=== PATIENT | male | born 1945 | race Caucasian/White ===

== ENCOUNTER 2018-05-23 10:26 | Day surgery (SDC) | payer OTHER ==
[2018-05-15 15:21] VITALS: BMI 38.0
--- NOTE | 2018-05-22 09:38 | HP ---
HISTORY AND PHYSICAL DATE OF SERVICE: 05/23/2018. CHIEF COMPLAINT: Left hand pain and numbness. HISTORY OF PRESENT ILLNESS: The patient is a 72-year-old retired right-hand dominant male who presents with progressive left hand pain and numbness for the past year. He notes symptoms with gripping and grasping. He has numbness radiating into all digits. He notes it does wake him at night. He has tried previous bracing. PAST MEDICAL HISTORY: Significant for arthritis, hypertension, diabetes. PAST SURGICAL HISTORY: Significant for bilateral total knee arthroplasty, right rotator cuff surgery, left thumb surgery, multiple eye surgeries, and vasectomy. CURRENT MEDICATIONS: Insulin, metformin, Naprosyn, atorvastatin, glipizide, lisinopril. He has allergies to lovastatin and simvastatin. FAMILY HISTORY: Significant for lung problems. SOCIAL HISTORY: Significant for previous tobacco use, however he quit in 1987. He quit use of alcohol in 2003. REVIEW OF SYSTEMS: Sixteen point review of systems otherwise reviewed and is noncontributory. PHYSICAL EXAMINATION: On examination, the patient is approximately 6 feet tall, 285 pounds, of endomorphic habitus. HEENT exam is nonfocal. Neck is supple. He is nontender about the left shoulder and elbow. On examination of his left wrist, he has a positive Tinel's over the carpal canal. Carpal tunnel compression test is positive. Abductor pollicis brevis strength is 4/5 on the left, 5-/5 on the right. He has moderate thenar atrophy on the left. He has full digital range of motion. EMG report, left upper extremity, shows moderate left carpal tunnel syndrome in addition to left cubital tunnel syndrome. IMPRESSION: 1. Symptomatic left carpal tunnel syndrome. 2. Diabetes. RECOMMENDATIONS: I talked to the patient at length regarding his condition and treatment options. At this point, he is quite symptomatic and opts to proceed with surgery. We will plan to proceed with left carpal tunnel release. We will likely perform that as an outpatient procedure utilizing local anesthetic and IV sedation. Risks and benefits were discussed at length in layman's terms. MMODL / IJN: [id number] /
[~2018-05-23 10:26] MED LIST: DEXAMETHASONE SOD PHOSPHATE 10 MG/ML 1 ML VIAL IV ONE; MIDAZOLAM 2 MG/2 ML VIAL IV PRN; ONDANSETRON 4 MG/2 ML VIAL IVP ONE; fentaNYL (PF) 50 MCG/ML 2 ML AMP IV PRN
[2018-05-23] MEDS: LACTATED RINGERS 1,000 ML IV SCH ×2 (12:08→13:08)
[2018-05-23 12:09] VITALS: TEMP 98.1
[2018-05-23 12:09] LABS: Glucose,Whole Blood 179 mg/dL (75-99)
[2018-05-23] MEDS ORDERED: MIDAZOLAM 2 MG/2 ML VIAL ONE (13:11)
[2018-05-23] MEDS ORDERED: PROPOFOL 10 MG/ML 20 ML VIAL IV ONE (13:11)
[2018-05-23] MEDS ORDERED: ROPIVACAINE 5 MG/ML 30 ML VIAL MISCELLANE ONE (13:19)
[2018-05-23 13:39] VITALS: RESP 16
--- NOTE | 2018-05-23 13:40 | P.OP ---
Date of Procedure: 05/23/18 Preoperative Diagnosis: Symptomatic left carpal tunnel syndrome Postoperative Diagnosis: Same Procedure(s) Performed: Left carpal tunnel release Anesthesia: MAC, regional, local Surgeon: Aurelio Cabrera Estimated Blood Loss (ml): 2 Pathology: none sent Condition: stable Disposition: PACU Indications for Procedure: The patient's a 73-year-old male who presents with progressive left hand pain and numbness secondary to carpal tunnel syndrome despite conservative measures. A discussion of the risks and benefits of operative intervention versus continued conservative measures was made with patient. Proceed with surgery. Operative risks to include infection, neurovascular injury, development of blood clots, possible incomplete resolution of symptoms, possible recurrence of symptoms and need for subsequent procedures was discussed. Informed consent was obtained. Operative Findings: As below Description of Procedure: The patient was brought to the operating room, and after induction of IV sedation and placement of an axillary block the left upper extremity was prepped and draped in a normal fashion. The proposed incision site was outlined with a skin marker in line with the radial aspect fourth ray extending from the volar distal wrist crease distally 2-1/2 cm. 8 mL of half percent Marcaine was injected into the proposed incision site. The tourniquet was inflated to 250 mmHg. Skin incision was then made. The skin and subcu tissues were divided sharply. Electrocautery was used for hemostasis. The superficial palmar fascia was identified and split in line with the skin incision. The transverse carpal ligament was identified and transected under direct visualization distally to the level of the palmar fat pad. I felt this was adequate distal release. A plane above and below the transverse carpal ligament was then bluntly developed with tenotomies. The confluence of the distal forearm fascia and the transverse carpal ligament was then transected under direct visualization with the tines pointed in the ulnar direction. I felt there was adequate proximal release. Neural lysis was not performed. The wound was irrigated with normal saline. The skin was reapproximated with simple 3-0 nylon sutures. A sterile dressing was applied. The tourniquet was deflated less than 15 minutes total tourniquet time. The patient was awoken from sedation and transferred to recovery room in good condition. Blood loss was estimated 2 mL. No complications were incurred. Sponge and needle counts were correct in the case.
[2018-05-23 13:56] VITALS: BP 122/78; PULSE 91
--- NOTE | 2018-05-23 14:29 | P.ONQ ---
Anesthesiology Proc Note - PNB - Peripheral Nerve Block Performed Left Axillary Single Time Out Performed: Yes (9096) Procedure Start Time: 12:56 Procedure Stop Time: 13:00 Indication: Acute Post-Operative Pain, Dx/Pain Location (Left hand pain), Requested by physician Sedation Type: Sedate with meaningful contact maintained Preparation: Sterile Prep Position: Supine Needle Types: On-Q Needle Size: 100mm (4") Needle Gauge: 21 Technique: Ultrasound Injectate: Other (see comment) (15ml 0.5% ropivacaine + 15ml 2% lidocaine with 1 :200,000 epi) Blood Aspirated: No Pain Paresthesia on Injection Noted: No Resistance on Injection: Normal Events: Uneventful and Well Tolerated
== END 2018-05-23 14:10 | disposition home or self-care (01) ==
LOC: OR 10:26
PROVIDERS: ATTEND Orthopaedic Surgery
DX: G56.02 Carpal tunnel syndrome, left upper limb (principal); I10 Essential (primary) hypertension; E78.5 Hyperlipidemia, unspecified; E11.9 Type 2 diabetes mellitus without complications; Z79.4 Long term (current) use of insulin; G47.33 Obstructive sleep apnea (adult) (pediatric); Z99.89 Dependence on other enabling machines and devices; M19.90 Unspecified osteoarthritis, unspecified site; Z87.891 Personal history of nicotine dependence; F43.10 Post-traumatic stress disorder, unspecified; Z79.1 Long term (current) use of non-steroidal anti-inflammatories (NSAID); Z79.891 Long term (current) use of opiate analgesic; Z79.51 Long term (current) use of inhaled steroids; Z79.899 Other long term (current) drug therapy; Z88.8 Allergy status to other drugs, medicaments and biological substances
CPT/HCPCS: 64721; 64417; J2250; J1100; J0690; J2405; J2795; J2704

== ENCOUNTER 2018-07-31 13:22 | Observation (INO) | payer OTHER ==
[2018-07-31] MEDS ORDERED: ASPIRIN 81 MG PO STA (13:32)
--- NOTE | 2018-07-31 13:34 | ED ---
General Adult HPI - General Stated complaint: CHEST PAIN - History of Present Illness Initial comments: Dictation was produced using [employer] dictation software. please excuse any grammatical, word or spelling errors. Chief Complaint: 73-year-old male with multiple comorbidities presents with left anterior chest pain. History of Present Illness: Patient is a 73-year-old male multiple comorbidities. His medical problems include diabetes, post remote stress disorder, hypertension, dyslipidemia. States that over the past 3 days he's been having intermittent left-sided chest pain. He localizes the pain to his left anterior chest. States that today he was exerting himself when he noticed that some of his pain radiated down his left upper extremity. Patient denies any cardiac comorbidities. Denies any cardiac stents. He is never seen a roll bucker before. He's had 2 stress tests that were done about several years ago that were both negative. He denies any associated diaphoresis. Denies any radiation to the neck. The ROS documented in this emergency department record has been reviewed and confirmed by me. Those systems with pertinent positive or negative responses have been documented in the HPI. All other systems are other negative and/or noncontributory. - Related Data Home Medications Medication Instructions Recorded Confirmed Cromolyn Sodium [NasalCrom] 1 spray INHALATION BID 05/03/16 05/15/18 HYDROcodone/APAP 10-325MG [Sunspot 1 tab PO 5XD PRN 05/03/16 05/23/18 10-325] Hydrochlorothiazide [Hydrodiuril] 25 mg PO DAILY 05/03/16 05/15/18 Insulin Glargine [Lantus] 35 unit INJ QAM 05/03/16 05/15/18 Lisinopril 40 mg PO DAILY 05/03/16 05/15/18 Multivitamin [Men's Multi-Vitamin] 1 tab PO DAILY 05/03/16 05/15/18 glipiZIDE [Glucotrol] 10 mg PO BID 05/03/16 05/15/18 metFORMIN HCL [Glucophage] 1,000 mg PO BID 05/03/16 05/15/18 Atorvastatin [Lipitor] 20 mg PO HS 05/15/18 05/15/18 Fluticasone Nasal [place] [Flonase 1 spray EA NOSTRIL DAILY 05/15/18 05/15/18 Nasal [place]] Multivitamins, Thera [Multivitamin 1 tab PO DAILY 05/15/18 05/15/18 (formulary)] Naproxen [Naprosyn] 500 mg PO BID PRN 05/15/18 05/15/18 Pseudoephedrine HCl [Sudafed] 120 mg PO BID PRN 05/15/18 05/23/18 Viagra (Unknown Dose) 1 tab PO DIRECTED 05/15/18 traZODone HCL 100 mg PO HS 05/15/18 05/15/18 Allergies Allergy/AdvReac Type Severity Reaction Status Date / Time lovastatin Allergy Unknown Verified 07/31/18 15:20 sesame oil Allergy Anaphylaxis Verified 07/31/18 15:20 simvastatin Allergy Unknown Verified 07/31/18 15:20 Review of Systems ROS Statement: Those systems with pertinent positive or pertinent negative responses have been documented in the HPI. ROS Other: All systems not noted in ROS Statement are negative. Past Medical History Past Medical History: Asthma, Diabetes Mellitus, Hyperlipidemia, Hypertension, Osteoarthritis (OA), Sleep Apnea/CPAP/BIPAP Additional Past Medical History / Comment(s): uses c-pap machine, constipation due to norco., states torn left rotator cuff., states constant pain all over, hx of agent orange exposure, ptsd. History of Any Multi-Drug Resistant Organisms: None Reported Past Surgical History: Joint Replacement Additional Past Surgical History / Comment(s): Nemesio total knees, lipoma removed, vasectomy, right rotator cuff., cataracts. Past Anesthesia/Blood Transfusion Reactions: No Reported Reaction Past Psychological History: PTSD Smoking Status: Former smoker Past Alcohol Use History: None Reported Additional Past Alcohol Use History / Comment(s): quit smoking over 30 yrs ago. smoked 1 ppd off and on. Past Drug Use History: None Reported - Past Family History Father Family Medical History: Cancer Additional Family Medical History / Comment(s): asbestos exposure General Exam - General Exam Comments Initial Comments: PHYSICAL EXAM: General Impression: Alert and oriented x3, not in acute distress HEENT: Normocephalic atraumatic, extra-ocular movements intact, pupils equal and reactive to light bilaterally, mucous membranes moist. Cardiovascular: Heart regular rate and rhythm, S1&S2 audible, no murmurs, rubs or gallops Chest: Lungs clear to auscultation bilaterally, no rhonchi, no wheeze, no rales Abdomen: Bowel sounds present, abdomen soft, non-tender, non-distended, no organomegaly Musculoskeletal: Pulses present and equal in all extremities, no peripheral edema Motor: Power 5/5 bilaterally, no focal deficits noted Neurological: CN II-XII grossly intact, no focal motor or sensory deficits noted Skin: Intact with no visualized rashes Psych: Normal affect and mood Course Vital Signs 07/31/18 07/31/18 07/31/18 13:32 14:05 14:30 Temperature 97.8 F Pulse Rate 83 74 65 Respiratory 18 15 20 Rate Blood Pressure 150/90 157/86 157/86 O2 Sat by Pulse 96 97 Oximetry 07/31/18 15:00 Temperature Pulse Rate 67 Respiratory 18 Rate Blood Pressure 145/85 O2 Sat by Pulse Oximetry Medical Decision Making - Medical Decision Making ED course: 73-year-old male presents with atypical chest pain with typical features. Patient is well-appearing at this time.Laboratory evaluation obtained. CBC unremarkable. Coag panel unremarkable. Metabolic panel shows glucose of 209. Patient has a negative cardiac enzymes. Lipase level is 880. Patient reevaluated. Patient not complaining of any epigastric abdominal tenderness. Denies any surgery. Processes gallbladder. Patient states his pain is to his left anterior chest with some shoulder symptoms. Discussed possible that patient is experiencing referred pain from upper abdomen however more than likely this is more consistent with pain in his chest. Regardless, patient be admitted to observation for serial troponins. He may be taken for cardiac stress testing. Patient given aspirin. Patient is sent home agreeable to disposition. EKG interpretation: Ventricular rate 75, sinus rhythm, ND interval 176, QRS 100 , QTC 442. No ND prolongation, no QTC prolongation, no ST or T-wave changes noted. Overall, this EKG is unremarkable - Lab Data Result diagrams: 07/31/18 13:51 07/31/18 13:51 Lab Results 07/31/18 07/31/18 07/31/18 Range/Units 13:51 13:51 13:51 WBC 6.2 (3.8-10.6) k/uL RBC 4.28 L (4.30-5.90) m/uL Hgb 13.9 (13.0-17.5) gm/dL Hct 40.6 (39.0-53.0) % MCV 94.8 (80.0-100.0) fL MCH 32.4 (25.0-35.0) pg MCHC 34.2 (31.0-37.0) g/dL RDW 12.6 (11.5-15.5) % Plt Count 174 (150-450) k/uL Neutrophils % 61 % Lymphocytes % 28 % Monocytes % 5 % Eosinophils % 3 % Basophils % 1 % Neutrophils # 3.8 (1.3-7.7) k/uL Lymphocytes # 1.7 (1.0-4.8) k/uL Monocytes # 0.3 (0-1.0) k/uL Eosinophils # 0.2 (0-0.7) k/uL Basophils # 0.0 (0-0.2) k/uL PT (9.0-12.0) sec INR (<1.2) APTT (22.0-30.0) sec Sodium 137 (137-145) mmol/L Potassium 4.2 (3.5-5.1) mmol/L Chloride 100 (98-107) mmol/L Carbon Dioxide 27 (22-30) mmol/L Anion Gap 10 mmol/L BUN 19 (9-20) mg/dL Creatinine 1.12 (0.66-1.25) mg/dL Est GFR (CKD-EPI)AfAm 76 (>60 ml/min/1.73 sqM) Est GFR (CKD-EPI)NonAf 66 (>60 ml/min/1.73 sqM) Glucose 209 H (74-99) mg/dL Calcium 9.0 (8.4-10.2) mg/dL Magnesium 1.8 (1.6-2.3) mg/dL Total Bilirubin 0.4 (0.2-1.3) mg/dL AST 35 (17-59) U/L ALT 41 (21-72) U/L Alkaline Phosphatase 58 (38-126) U/L Total Creatine Kinase 267 H (55-170) U/L CK-MB (CK-2) 3.0 H (0.0-2.4) ng/mL CK-MB (CK-2) Rel Index 1.1 Troponin I <0.012 (0.000-0.034) ng/mL Total Protein 6.6 (6.3-8.2) g/dL Albumin 3.8 (3.5-5.0) g/dL Lipase 880 H (23-300) U/L 07/31/18 Range/Units 13:51 WBC (3.8-10.6) k/uL RBC (4.30-5.90) m/uL Hgb (13.0-17.5) gm/dL Hct (39.0-53.0) % MCV (80.0-100.0) fL MCH (25.0-35.0) pg MCHC (31.0-37.0) g/dL RDW (11.5-15.5) % Plt Count (150-450) k/uL Neutrophils % % Lymphocytes % % Monocytes % % Eosinophils % % Basophils % % Neutrophils # (1.3-7.7) k/uL Lymphocytes # (1.0-4.8) k/uL Monocytes # (0-1.0) k/uL Eosinophils # (0-0.7) k/uL Basophils # (0-0.2) k/uL PT 10.6 (9.0-12.0) sec INR 1.1 (<1.2) APTT 22.4 (22.0-30.0) sec Sodium (137-145) mmol/L Potassium (3.5-5.1) mmol/L Chloride (98-107) mmol/L Carbon Dioxide (22-30) mmol/L Anion Gap mmol/L BUN (9-20) mg/dL Creatinine (0.66-1.25) mg/dL Est GFR (CKD-EPI)AfAm (>60 ml/min/1.73 sqM) Est GFR (CKD-EPI)NonAf (>60 ml/min/1.73 sqM) Glucose (74-99) mg/dL Calcium (8.4-10.2) mg/dL Magnesium (1.6-2.3) mg/dL Total Bilirubin (0.2-1.3) mg/dL AST (17-59) U/L ALT (21-72) U/L Alkaline Phosphatase (38-126) U/L Total Creatine Kinase (55-170) U/L CK-MB (CK-2) (0.0-2.4) ng/mL CK-MB (CK-2) Rel Index Troponin I (0.000-0.034) ng/mL Total Protein (6.3-8.2) g/dL Albumin (3.5-5.0) g/dL Lipase (23-300) U/L Disposition Clinical Impression: Chest pain, Elevated lipase Disposition: ADMITTED IP TO THIS HOSP Condition: Fair Referrals: [facility],Clinic [Primary Care Provider] - 1-2 days Decision Time: 15:28
--- NOTE | 2018-07-31 14:33 | XR ---
EXAMINATION TYPE: XR chest 2V DATE OF EXAM: 07/31/2018 COMPARISON: NONE HISTORY: Chest pain, asthma TECHNIQUE: Frontal and lateral views of the chest are obtained. FINDINGS: There is no focal air space opacity, pleural effusion, or pneumothorax seen. The cardiac silhouette size is within normal limits. The osseous structures are intact. There are overlying car diac leads. Linear stranding at the lung bases may represent atelectasis or scarring. IMPRESSION: Possible basilar atelectasis or scarring, follow-up as indicated
[2018-07-31 14:48] LABS: INR 1.1 (<1.2); Partial Thromboplastin Time 22.4 sec (22.0-30.0); Prothrombin Time 10.6 sec (9.0-12.0)
[2018-07-31 14:55] LABS: Albumin 3.8 g/dL (3.5-5.0); Magnesium 1.8 mg/dL (1.6-2.3); Potassium 4.2 mmol/L (3.5-5.1); Total Bilirubin 0.4 mg/dL (0.2-1.3); Total Protein 6.6 g/dL (6.3-8.2)
[2018-07-31 14:59] LABS: Creatine Kinase 267 U/L (55-170)
[2018-07-31 15:12] LABS: Troponin I <0.012 ng/mL (0.000-0.034)
[2018-07-31 15:15] LABS: Basophils % (A) 1 %; Eosinophils # (A) 0.2 k/uL (0-0.7); Eosinophils % (A) 3 %; HCT 40.6 % (39.0-53.0); HGB 13.9 gm/dL (13.0-17.5); Lymphocytes # (A) 1.7 k/uL (1.0-4.8); Lymphocytes % (A) 28 %; MCH 32.4 pg (25.0-35.0); MCHC 34.2 g/dL (31.0-37.0); MCV 94.8 fL (80.0-100.0); Mean Platelet Volume 7.3; Monocytes # (A) 0.3 k/uL (0-1.0); Monocytes % (A) 5 %; Neutrophils # (A) 3.8 k/uL (1.3-7.7); Neutrophils % (A) 61 %; Platelet Count 174 k/uL (150-450); RBC 4.28 m/uL (4.30-5.90); RDW 12.6 % (11.5-15.5); WBC 6.2 k/uL (3.8-10.6)
[2018-07-31] MEDS ORDERED: NITROGLYCERIN SL TABS 0.4 MG TAB SUBLINGUAL PRN (15:25)
[2018-07-31 20:18] LABS: Creatine Kinase 253 U/L (55-170)
[2018-07-31 20:31] LABS: Creatine Kinase MB 2.8 ng/mL (0.0-2.4); Troponin I <0.012 ng/mL (0.000-0.034)
[2018-07-31 20:42] LABS: Glucose,Whole Blood 227 mg/dL (75-99)
[2018-07-31] MEDS ORDERED: NAPROXEN 250 MG TAB PO STA (21:00)
[2018-07-31] MEDS ORDERED: traZODone HCL 50 MG TAB PO SCH (21:00)
[2018-07-31] MEDS ORDERED: ATORVASTATIN 20 MG TAB PO SCH (21:00)
[2018-07-31] MEDS: HYDROcodone/APAP 10-325MG 1 EACH TAB PO PRN (21:35)
[2018-07-31] MEDS: INSULIN ASPART 100 UNIT/ML 1 ML 10 ML VIAL SQ SCH (21:36)
[2018-07-31] MEDS: CAPSAICIN 0.025% CREAM 60 GM TUBE TOPICAL SCH ×2 (21:38→21:39)
[2018-07-31] MEDS: CROMOLYN INHALATION SCH (21:38)
[2018-07-31] MEDS: glipiZIDE 10 MG TAB PO SCH (21:52)
[2018-08-01] MEDS: HYDROcodone/APAP 10-325MG 1 EACH TAB PO PRN ×3 (01:25→12:39)
[2018-08-01 01:33] LABS: Cholesterol 142 mg/dL (<200); HDL Cholesterol 46 mg/dL (40-60); LDL Cholesterol,Calculated 49 mg/dL (0-99); Triglycerides 234 mg/dL (<150)
[2018-08-01 01:53] LABS: Creatine Kinase 213 U/L (55-170)
[2018-08-01 02:06] LABS: Creatine Kinase MB 2.8 ng/mL (0.0-2.4); Troponin I <0.012 ng/mL (0.000-0.034)
[2018-08-01 03:45] VITALS: RESP 16
[2018-08-01 06:48] LABS: Glucose,Whole Blood 162 mg/dL (75-99)
[2018-08-01] MEDS ORDERED: LISINOPRIL 20 MG TAB PO SCH (09:00)
[2018-08-01] MEDS ORDERED: TRIAMCINOLONE 0.1% CREAM 80 GM TUBE TOPICAL SCH (09:00)
[2018-08-01] MEDS ORDERED: ASPIRIN 325 MG TAB PO SCH (09:00)
[2018-08-01] MEDS ORDERED: HYDROCHLOROTHIAZIDE 25 MG TAB PO SCH (09:00)
[2018-08-01] MEDS ORDERED: ARTIFICIAL TEARS-HYPROMELLOSE DROPS 15 ML BTL BOTH EYES SCH (09:00)
[2018-08-01] MEDS ORDERED: FLUTICASONE 50MCG/SPRAY NASAL 16GM EA NOSTRIL SCH (09:00)
[2018-08-01] MEDS ORDERED: INSULIN DETEMIR 100 UNIT/ML 10 ML VIAL SQ SCH (09:00)
--- NOTE | 2018-08-01 09:17 | P.CRDCN ---
<Luis Miguel Marin - Last Filed: 08/01/18 09:16> History of Present Illness History of present illness: 73-year-old male patient presenting with recurrent discomfort in the left shoulder radiating down the left arm, associated with eating No association with walking No undue shortness of breath or chest discomfort with exertion Abnormal lipase of 880 Cardiac enzymes Past history of diabetes hypertension and apparently a history of VT Normal cardiac enzymes at this time Twelve-lead ECG shows normal ST segments with left axis deviation Suggest Evaluation of abnormal lipase. His discomfort is most likely pancreatic in origin not cardiac at this time 2-D echo and Doppler study to assess cardiac structure and function Past Medical History Past Medical History: Asthma, Diabetes Mellitus, Hyperlipidemia, Hypertension, Osteoarthritis (OA), Sleep Apnea/CPAP/BIPAP Additional Past Medical History / Comment(s): uses c-pap machine, constipation due to norco., states torn left rotator cuff., states constant pain all over, hx of agent orange exposure, ptsd(pt stated if he's sleeping call his name drom door". upper rt dental bridge,hx broken nose, had shingels vaccine-not sure of date. History of Any Multi-Drug Resistant Organisms: None Reported Past Surgical History: Joint Replacement Additional Past Surgical History / Comment(s): Kiko total knees, lipoma removed, vasectomy, right rotator cuff., cataracts.lt carpal tunnel release, lt thumb sx , "holes in kiko retina repaired Past Anesthesia/Blood Transfusion Reactions: No Reported Reaction Smoking Status: Former smoker - Past Family History Father Family Medical History: Cancer Additional Family Medical History / Comment(s): asbestos exposure Medications and Allergies Home Medications Medication Instructions Recorded Confirmed Type Cromolyn Sodium [NasalCrom] 1 spray INHALATION BID 05/03/16 07/31/18 History HYDROcodone/APAP 10-325MG [[place] 1 tab PO 5XD PRN 05/03/16 07/31/18 History 10-325] Hydrochlorothiazide [Hydrodiuril] 25 mg PO DAILY 05/03/16 07/31/18 History Insulin Glargine [Lantus] 40 unit INJ QAM 05/03/16 07/31/18 History Lisinopril 40 mg PO DAILY 05/03/16 07/31/18 History glipiZIDE [Glucotrol] 10 mg PO BID 05/03/16 07/31/18 History metFORMIN HCL [Glucophage] 1,000 mg PO BID 05/03/16 07/31/18 History Atorvastatin [Lipitor] 20 mg PO HS 05/15/18 07/31/18 History Fluticasone Nasal [place] [Flonase 2 spray EA NOSTRIL DAILY 05/15/18 07/31/18 History Nasal [place]] Multivitamins, Thera [Multivitamin 1 tab PO DAILY 05/15/18 07/31/18 History (formulary)] Naproxen [Naprosyn] 500 mg PO BID PRN 05/15/18 07/31/18 History Pseudoephedrine HCl [Sudafed] 120 mg PO BID PRN 05/15/18 07/31/18 History Viagra (Unknown Dose) 1 tab PO DIRECTED 05/15/18 07/31/18 History Artificial Tears-Hypromellose 1 drop BOTH EYES DAILY 07/31/18 07/31/18 History [Artificial Tear Drops] Capsaicin [Zostrix] 1 applic TOPICAL Q6HR 07/31/18 07/31/18 History Naloxone HCl [Narcan] 4 mg NASAL DIRECTED 07/31/18 07/31/18 History Sodium Chloride 0.65% Nasal [Deep 2 spray NASAL DAILY 07/31/18 07/31/18 History Sea (Saline)] Triamcinolone 0.1% Cream [Kenalog 1 applic TOPICAL DAILY 07/31/18 07/31/18 History 0.1% Cream] traZODone HCL 150 mg PO HS 07/31/18 07/31/18 History Allergies Allergy/AdvReac Type Severity Reaction Status Date / Time lovastatin Allergy Unknown Verified 07/31/18 15:20 sesame oil Allergy Anaphylaxis Verified 07/31/18 15:20 simvastatin Allergy Unknown Verified 07/31/18 15:20 Physical Exam Vitals: Vital Signs Temp Pulse Pulse Resp BP BP Pulse Ox 08/01/18 08:00 97.8 F 69 154/92 94 L 08/01/18 03:44 97.7 F 66 16 142/72 95 08/01/18 03:12 18 07/31/18 23:58 18 07/31/18 23:14 97.7 F 74 18 133/65 98 07/31/18 20:00 18 07/31/18 18:55 98.3 F 105 H 18 156/68 95 07/31/18 18:00 93 16 159/87 07/31/18 17:30 77 20 159/87 98 07/31/18 17:00 64 17 163/91 07/31/18 16:30 65 17 169/82 07/31/18 16:00 71 10 L 167/90 07/31/18 15:30 73 16 152/86 07/31/18 15:00 67 18 145/85 07/31/18 14:30 65 20 157/86 07/31/18 14:05 74 15 157/86 97 07/31/18 13:32 97.8 F 83 18 150/90 96 Intake and Output 07/31/18 08/01/18 08/01/18 22:59 06:59 14:59 Other: Voiding Method Toilet Toilet Toilet # Voids 1 1 Results 07/31/18 13:51 07/31/18 13:51 Cardiac Enzymes 07/31/18 07/31/18 07/31/18 Range/Units 13:51 13:51 19:29 AST 35 (17-59) U/L CK-MB (CK-2) 3.0 H 2.8 H (0.0-2.4) ng/mL Troponin I <0.012 <0.012 (0.000-0.034) ng/mL 08/01/18 Range/Units 01:14 AST (17-59) U/L CK-MB (CK-2) 2.8 H (0.0-2.4) ng/mL Troponin I <0.012 (0.000-0.034) ng/mL Coagulation 07/31/18 Range/Units 13:51 PT 10.6 (9.0-12.0) sec APTT 22.4 (22.0-30.0) sec Lipids 07/31/18 Range/Units 13:51 Triglycerides 234 H (<150) mg/dL Cholesterol 142 (<200) mg/dL HDL Cholesterol 46 (40-60) mg/dL CBC 07/31/18 Range/Units 13:51 WBC 6.2 (3.8-10.6) k/uL RBC 4.28 L (4.30-5.90) m/uL Hgb 13.9 (13.0-17.5) gm/dL Hct 40.6 (39.0-53.0) % Plt Count 174 (150-450) k/uL Comprehensive Metabolic Panel 07/31/18 Range/Units 13:51 Sodium 137 (137-145) mmol/L Potassium 4.2 (3.5-5.1) mmol/L Chloride 100 (98-107) mmol/L Carbon Dioxide 27 (22-30) mmol/L BUN 19 (9-20) mg/dL Creatinine 1.12 (0.66-1.25) mg/dL Glucose 209 H (74-99) mg/dL Calcium 9.0 (8.4-10.2) mg/dL AST 35 (17-59) U/L ALT 41 (21-72) U/L Alkaline Phosphatase 58 (38-126) U/L Total Protein 6.6 (6.3-8.2) g/dL Albumin 3.8 (3.5-5.0) g/dL Current Medications Generic Name Dose Route Start Last Admin Trade Name Freq PRN Reason Stop Dose Admin Hydrocodone Bitart/Acetaminophen 1 each 07/31/18 18:17 08/01/18 06:38 [place] 10 PO 1 each 5XD PRN Administration Pain Artificial Tears 1 drops 08/01/18 09:00 Artificial Tear Drops BOTH EYES DAILY [facility] Aspirin 325 mg 08/01/18 09:00 Aspirin PO DAILY [facility] Atorvastatin Calcium 20 mg 07/31/18 21:00 07/31/18 21:35 Lipitor PO 20 mg HS G[facility]ITO Administration Capsaicin 1 applic 08/01/18 00:00 07/31/18 21:39 Trixaicin Cream TOPICAL Not Given Q6HR [facility] Fluticasone Propionate 2 spray 08/01/18 09:00 Flonase Nasal [place] EA NOSTRIL DAILY [facility] Glipizide 10 mg 07/31/18 18:30 07/31/18 21:52 Glucotrol PO 10 mg AC-BID G[facility]ITO Administration Hydrochlorothiazide 25 mg 08/01/18 09:00 Hydrodiuril PO DAILY [facility] Insulin Aspart 0 unit 07/31/18 21:03 07/31/18 21:36 Novolog SQ 5 unit ACHS [facility] Administration Protocol Insulin Detemir 40 unit 08/01/18 09:00 Levemir SQ QAM [facility] Lisinopril 40 mg 08/01/18 09:00 Zestril PO DAILY [facility] Nitroglycerin 0.4 mg 07/31/18 15:25 Nitrostat SUBLINGUAL Q5M PRN Chest Pain Cromolyn [place] 1 spray 07/31/18 20:00 07/31/18 21:38 INHALATION Not Given RT-BID [facility] Trazodone HCl 150 mg 07/31/18 21:00 07/31/18 21:35 Desyrel PO 150 mg HS G[facility]NAKITO Administration Triamcinolone Acetonide 1 applic 08/01/18 09:00 Kenalog TOPICAL DAILY G[facility]ITO Intake and Output 07/31/18 08/01/18 08/01/18 22:59 06:59 14:59 Other: Voiding Method Toilet Toilet Toilet # Voids 1 1 07/31/18 13:51 07/31/18 13:51 <Valencia Celeste - Last Filed: 08/01/18 10:23> History of Present Illness History of present illness: Mr. Hope is a pleasant 73-year-old male past medical history diabetes mellitus, dyslipidemia, hypertension, obstructive sleep apnea, PTSD and former nicotine dependence. 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 We have been asked to see him in consultation for chest pain. He states his symptoms are very intermittent and occur after eating. Specifically a few days ago while he was eating [employer] he started feeling a pain in the midsternal epigastric region with radiation into the left shoulder. The symptoms ultimately subsided on their own. Again the next day while he was eating a hotdog he had similar type symptoms with epigastric and chest discomfort with radiation to the shoulder with frequent belching and burning. He denies associated shortness of breath, palpitations, dizziness or diaphoresis. He also denies any shortness of breath or chest discomfort with exertion. EKG reveals sinus mechanism with no acute ST or T-wave abnormalities left axis deviation. Chest x-ray is negative for an acute cardiopulmonary process with basilar scarring noted. Laboratory data reviewed, hemoglobin 13.9, platelets 174, sodium 137, potassium 4.2, magnesium 1.8, creatinine 1.12, cardiac enzymes negative 3, lipase 880, LDL 49 HDL 46. Current cardiac medications include atorvastatin 20 mg daily, hydrochlorothiazide 25 mg daily, lisinopril 40 mg daily. He also takes trazodone, Glucophage, Sudafed, Naprosyn, Lantus, [place], capsaicin and Flonase. At the time of my exam: CONSTITUTIONAL: Denies fever. Denies chills. EYES: Denies blurred vision. Denies vision changes. Denies eye pain. EARS, NOSE, MOUTH & THROAT: Denies headache. Denies sore throat. Denies ear pain. CARDIOVASCULAR: Denies chest pain. Denies shortness of breath. Denies orthopnea. Denies PND. Denies palpitations. RESPIRATORY: Denies cough. GASTROINTESTINAL: Denies abdominal pain. Denies diarrhea. Denies constipation. Denies nausea. Denies vomiting. MUSCULOSKELETAL: Denies myalgias. INTEGUMENTARY: Denies pruitis. Denies rash. NEUROLOGIC: Denies numbness. Denies tingling. Denies weakness. PSYCHIATRIC: Denies anxiety. Denies depression. ENDOCRINE: Denies fatigue. Denies weight change. Denies polydipsia. Denies polyurina. GENITOURINARY: Denies burning, hematuria or urgency with micturation. HEMATOLOGIC: Denies history of anemia. Denies bleeding. Blood pressure 154/92 heart rate 69 afebrile maintaining oxygen saturation on room air GENERAL: This is a 73-year-old male in no apparent distress at the time of my examination. Obese. HEENT: Head is atraumatic, normocephalic. Pupils are equal, round. Sclerae anicteric. Conjunctivae are clear. Mucous membranes of the mouth are moist. Neck is supple. There is no jugular venous distention. No carotid bruit is heard. LUNGS: Clear to auscultation no wheezes, rales or rhonchi. No chest wall tenderness is noted on palpation or with deep breathing. HEART: Regular rate and rhythm without murmurs, rubs or gallops. S1 and S2 heard. ABDOMEN: Soft, nontender. Bowel sounds are heard. No organomegaly noted. EXTREMITIES: No evidence of peripheral edema and no calf tenderness noted. VASCULAR: Radial and dorsalis pedis pulses palpated, no evidence of clubbing. NEUROLOGIC: Patient is awake, alert and oriented x3. ASSESSMENT Chest pain, atypical. Acute coronary event has been ruled out and EKG evidence of ischemia and negative cardiac enzymes Elevated lipase Hypertension Dyslipidemia History of nicotine dependence, quit 2008 Obesity, BMI 38 PLAN An acute coronary event has been ruled out. His discomfort is mostly likely related to his pancreas or gallbladder, not cardiac. Obtain 2D echocardiogram and doppler study to assess cardiac structure and function. Ongoing medical management per primary care team regarding elevated lipase. Follow up with Dr. Marin in 2-3 weeks. Thank you kindly for this consultation. Nurse Practitioner note has been reviewed, I agree with a documented findings and plan of care. Patient was seen and examined. Physical Exam Vitals: Vital Signs Temp Pulse Pulse Resp BP BP Pulse Ox 08/01/18 08:00 97.8 F 69 154/92 94 L 08/01/18 03:44 97.7 F 66 16 142/72 95 08/01/18 03:12 18 07/31/18 23:58 18 07/31/18 23:14 97.7 F 74 18 133/65 98 07/31/18 20:00 18 07/31/18 18:55 98.3 F 105 H 18 156/68 95 07/31/18 18:00 93 16 159/87 07/31/18 17:30 77 20 159/87 98 07/31/18 17:00 64 17 163/91 07/31/18 16:30 65 17 169/82 07/31/18 16:00 71 10 L 167/90 07/31/18 15:30 73 16 152/86 07/31/18 15:00 67 18 145/85 07/31/18 14:30 65 20 157/86 07/31/18 14:05 74 15 157/86 97 07/31/18 13:32 97.8 F 83 18 150/90 96 Intake and Output 07/31/18 08/01/18 08/01/18 22:59 06:59 14:59 Other: Voiding Method Toilet Toilet Toilet # Voids 1 1 Results 07/31/18 13:51 07/31/18 13:51 Cardiac Enzymes 07/31/18 07/31/18 07/31/18 Range/Units 13:51 13:51 19:29 AST 35 (17-59) U/L CK-MB (CK-2) 3.0 H 2.8 H (0.0-2.4) ng/mL Troponin I <0.012 <0.012 (0.000-0.034) ng/mL 08/01/18 Range/Units 01:14 AST (17-59) U/L CK-MB (CK-2) 2.8 H (0.0-2.4) ng/mL Troponin I <0.012 (0.000-0.034) ng/mL Coagulation 07/31/18 Range/Units 13:51 PT 10.6 (9.0-12.0) sec APTT 22.4 (22.0-30.0) sec Lipids 07/31/18 Range/Units 13:51 Triglycerides 234 H (<150) mg/dL Cholesterol 142 (<200) mg/dL HDL Cholesterol 46 (40-60) mg/dL CBC 07/31/18 Range/Units 13:51 WBC 6.2 (3.8-10.6) k/uL RBC 4.28 L (4.30-5.90) m/uL Hgb 13.9 (13.0-17.5) gm/dL Hct 40.6 (39.0-53.0) % Plt Count 174 (150-450) k/uL Comprehensive Metabolic Panel 07/31/18 Range/Units 13:51 Sodium 137 (137-145) mmol/L Potassium 4.2 (3.5-5.1) mmol/L Chloride 100 (98-107) mmol/L Carbon Dioxide 27 (22-30) mmol/L BUN 19 (9-20) mg/dL Creatinine 1.12 (0.66-1.25) mg/dL Glucose 209 H (74-99) mg/dL Calcium 9.0 (8.4-10.2) mg/dL AST 35 (17-59) U/L ALT 41 (21-72) U/L Alkaline Phosphatase 58 (38-126) U/L Total Protein 6.6 (6.3-8.2) g/dL Albumin 3.8 (3.5-5.0) g/dL Current Medications Generic Name Dose Route Start Last Admin Trade Name Freq PRN Reason Stop Dose Admin Hydrocodone Bitart/Acetaminophen 1 each 07/31/18 18:17 08/01/18 06:38 [place] 10 PO 1 each 5XD PRN Administration Pain Artificial Tears 1 drops 08/01/18 09:00 Artificial Tear Drops BOTH EYES DAILY [facility] Aspirin 325 mg 08/01/18 09:00 Aspirin PO DAILY [facility] Atorvastatin Calcium 20 mg 07/31/18 21:00 07/31/18 21:35 Lipitor PO 20 mg HS GUANAKITO Administration Capsaicin 1 applic 08/01/18 00:00 07/31/18 21:39 Trixaicin Cream TOPICAL Not Given Q6HR [facility] Fluticasone Propionate 2 spray 08/01/18 09:00 Flonase Nasal [place] EA NOSTRIL DAILY [facility] Glipizide 10 mg 07/31/18 18:30 07/31/18 21:52 Glucotrol PO 10 mg AC-BID [facility]O Administration Hydrochlorothiazide 25 mg 08/01/18 09:00 Hydrodiuril PO DAILY [facility] Insulin Aspart 0 unit 07/31/18 21:03 07/31/18 21:36 Novolog SQ 5 unit ACHS [facility] Administration Protocol Insulin Detemir 40 unit 08/01/18 09:00 Levemir SQ QAM [facility] Lisinopril 40 mg 08/01/18 09:00 Zestril PO DAILY [facility] Nitroglycerin 0.4 mg 07/31/18 15:25 Nitrostat SUBLINGUAL Q5M PRN Chest Pain Cromolyn [place] 1 spray 07/31/18 20:00 07/31/18 21:38 INHALATION Not Given RT-BID [facility] Trazodone HCl 150 mg 07/31/18 21:00 07/31/18 21:35 Desyrel PO 150 mg HS [facility] Administration Triamcinolone Acetonide 1 applic 08/01/18 09:00 Kenalog TOPICAL DAILY [facility] Intake and Output 07/31/18 08/01/18 08/01/18 22:59 06:59 14:59 Other: Voiding Method Toilet Toilet Toilet # Voids 1 1 07/31/18 13:51 07/31/18 13:51
[2018-08-01 11:30] LABS: Glucose,Whole Blood 208 mg/dL (75-99)
[2018-08-01] MEDS: INSULIN ASPART 100 UNIT/ML 1 ML 10 ML VIAL SQ SCH (12:41)
[2018-08-01] MEDS: glipiZIDE 10 MG TAB PO SCH (12:41)
[2018-08-01] MEDS: CROMOLYN INHALATION SCH (12:41)
[2018-08-01] MEDS ORDERED: PANTOPRAZOLE 40 MG/10 ML VIAL IVP SCH (12:45)
--- NOTE | 2018-08-01 13:10 | ECHOF ---
Referral Reason:cp MEASUREMENTS -------- HEIGHT: 182.9 cm WEIGHT: 127.0 kg BP: 154/92 IVSd: 1.3 cm (0.6 - 1.1) LVIDd: 4.7 cm (3.9 - 5.3) LVPWd: 1.3 cm (0.6 - 1.1) IVSs: 1.7 cm LVIDs: 2.8 cm LVPWs: 1.6 cm RVIDd: 4.0 cm (< 3.3) LAESV Index (A-L): 24.84 ml/m Ao Diam: 4.1 cm (2.0 - 3.7) LA Diam: 4.7 cm (2.7 - 3.8) AV Cusp: 2.1 cm (1.5 - 2.6) EPSS: 0.8 cm MV E Salazar: 0.77 m/s MV DecT: 284 ms MV A [place]: 0.87 m/s MV E/A Ratio: 0.88 RAP: 5.00 mmHg RVSP: 30.72 mmHg MV EF SLOPE: 65.07 mm/s (70 - 150) MV EXCURSION: 1.44 cm (> 18.000) FINDINGS -------- Sinus rhythm. This was a technically adequate study. The left ventricular size is normal. There is mild concentric left ventricular hypertrophy. Overa ll left ventricular systolic function is normal with, an EF between 55 - 60 %. The right ventricle is moderately enlarged. Normal LA size by volume 22+/-6 ml/m2. The right atrium is normal in size. Aortic valve is trileaflet and is mildly thickened. There is no evidence of aortic regurgitation. There is no evidence of aortic stenosis. The mitral valve leaflets are mildly thickened. Mild mitral regurgitation is present. Trace tricuspid regurgitation present. Right ventricular systolic pressure is normal at < 35 mmHg. There is no evidence of pulmonary hypertension. Trace/mild (physiologic) pulmonic regurgitation. The aortic root size is normal. IVC Not well visulized. There is no pericardial effusion. CONCLUSIONS -------- 1. Sinus rhythm. 2. This was a technically adequate study. 3. The left ventricular size is normal. 4. There is mild concentric left ventricular hypertrophy. 5. Overall left ventricular systolic function is normal with, an EF between 55 - 60 %. 6. The right ventricle is moderately enlarged. 7. Normal LA size by volume 22+/-6 ml/m2. 8. Aortic valve is trileaflet and is mildly thickened. 9. The mitral valve leaflets are mildly thickened. 10. Mild mitral regurgitation is present. 11. Trace tricuspid regurgitation present. 12. Right ventricular systolic pressure is normal at < 35 mmHg. 13. There is no evidence of pulmonary hypertension. 14. Trace/mild (physiologic) pulmonic regurgitation. 15. The aortic root size is normal. 16. IVC Not well visulized. 17. There is no pericardial effusion. [employer]: Noe Rogers RDCS
[2018-08-01] MEDS: CAPSAICIN 0.025% CREAM 60 GM TUBE TOPICAL SCH (13:39)
--- NOTE | 2018-08-01 13:41 | US ---
EXAMINATION TYPE: US gallbladder DATE OF EXAM: 08/01/2018 COMPARISON: NONE CLINICAL HISTORY: r/o gall stones. chest pain EXAM MEASUREMENTS: Liver Length: 17.3 cm Gallbladder Wall: 0.3 cm CBD: 0.8 cm Right Kidney: 12.6 x 6.2 x 6.4 cm Technically difficult exam due to being done portably, patient body habitus and midline bowel gas. Pancreas: not visualized due to midline bowel gas Liver: difficult to penetrate, loss of vascular landmarks Gallbladder: No stones seen, appears distended at 9.2 cm. Evidence for sonographic Day's sign: No CBD: measures 0.8 cm Right Kidney: cyst measures 1.8 x 1.4 x 1.7 cm. IMPRESSION: 1. Limited assessment of the pancreas and liver as discussed above. Increased pattern of liver can be seen with fatty infiltration, hepatitis or diffuse hepatocellular disease. 2. Gallbladder hydrops but no evidence of gallstones or wall thickening. Common bile duct measures 8 mm and is slightly enlarged given the patient's age group.
--- NOTE | 2018-08-01 15:42 | P.DS ---
Providers Date of admission: 07/31/18 15:25 Attending physician: Yinka Angulo Consults: 07/31/18 21:01 Consult Physician Routine Consulting Provider: Farooq Arizmendi Consult Reason/Comments: chest pain Do you want consulting provider notified?: Yes, Notify in am Primary care physician: [facility] Course: Please refer to my HPI Patient Condition at Discharge: Fair Plan - Discharge Summary Discharge Rx Participant: Yes New Discharge Prescriptions: New Omeprazole [PriLOSEC] 40 mg PO AC-BRKFST #14 capsule.dr Discontinued Naproxen [Naprosyn] 500 mg PO BID PRN PRN Reason: Pain No Action Insulin Glargine [Lantus] 40 unit INJ QAM metFORMIN HCL [Glucophage] 1,000 mg PO BID Lisinopril 40 mg PO DAILY Cromolyn Sodium [NasalCrom] 1 spray INHALATION BID Hydrochlorothiazide [Hydrodiuril] 25 mg PO DAILY glipiZIDE [Glucotrol] 10 mg PO BID HYDROcodone/APAP 10-325MG [[place] 10-325] 1 tab PO 5XD PRN PRN Reason: Pain Multivitamins, Thera [Multivitamin (formulary)] 1 tab PO DAILY Atorvastatin [Lipitor] 20 mg PO HS Pseudoephedrine HCl [Sudafed] 120 mg PO BID PRN PRN Reason: Congestion Fluticasone Nasal [place] [Flonase Nasal [place]] 2 spray EA NOSTRIL DAILY Viagra (Unknown Dose) 1 tab PO DIRECTED traZODone HCL 150 mg PO HS Triamcinolone 0.1% Cream [Kenalog 0.1% Cream] 1 applic TOPICAL DAILY Naloxone HCl [Narcan] 4 mg NASAL DIRECTED Capsaicin [Zostrix] 1 applic TOPICAL Q6HR Artificial Tears-Hypromellose [Artificial Tear Drops] 1 drop BOTH EYES DAILY Sodium Chloride 0.65% Nasal [[place] (Saline)] 2 spray NASAL DAILY Discharge Medication List Cromolyn Sodium [NasalCrom] 1 spray INHALATION BID 05/03/16 [History] HYDROcodone/APAP 10-325MG [[place] 10-325] 1 tab PO 5XD PRN 05/03/16 [History] Hydrochlorothiazide [Hydrodiuril] 25 mg PO DAILY 05/03/16 [History] Insulin Glargine [Lantus] 40 unit INJ QAM 05/03/16 [History] Lisinopril 40 mg PO DAILY 05/03/16 [History] glipiZIDE [Glucotrol] 10 mg PO BID 05/03/16 [History] metFORMIN HCL [Glucophage] 1,000 mg PO BID 05/03/16 [History] Atorvastatin [Lipitor] 20 mg PO HS 05/15/18 [History] Fluticasone Nasal [place] [Flonase Nasal [place]] 2 spray EA NOSTRIL DAILY 05/15/18 [History] Multivitamins, Thera [Multivitamin (formulary)] 1 tab PO DAILY 05/15/18 [History ] Pseudoephedrine HCl [Sudafed] 120 mg PO BID PRN 05/15/18 [History] Viagra (Unknown Dose) 1 tab PO DIRECTED 05/15/18 [History] Artificial Tears-Hypromellose [Artificial Tear Drops] 1 drop BOTH EYES DAILY [History] Capsaicin [Zostrix] 1 applic TOPICAL Q6HR 07/31/18 [History] Naloxone HCl [Narcan] 4 mg NASAL DIRECTED 07/31/18 [History] Sodium Chloride 0.65% Nasal [[place] (Saline)] 2 spray NASAL DAILY 07/31/18 [ History] Triamcinolone 0.1% Cream [Kenalog 0.1% Cream] 1 applic TOPICAL DAILY 07/31/18 [ History] traZODone HCL 150 mg PO HS 07/31/18 [History] Omeprazole [PriLOSEC] 40 mg PO GERALDOKFSLeroy #14 capsule. 08/01/18 [Rx] Follow up Appointment(s)/Referral(s): Luis Miguel Marin MD [STAFF PHYSICIAN] - 08/18/18 11:00 am [facility],Clinic [Primary Care Provider] - 3 Days Discharge Disposition: HOME SELF-CARE
--- NOTE | 2018-08-01 15:42 | P.HPIM ---
History of Present Illness 73-year-old male came in with epigastric abdominal burning sensation after eating. Patient denied any fever chills patient doesn't have any associated shortness of breath diaphoresis dizziness lightheadedness. Improved with belching patient pain radiates to the left shoulder area. She uses naproxen at home patient probably has gastritis there is a nonspecific elevation of lipase which is in minimal elevation patient is denied any significant abdominal pain, obtain a gallbladder ultrasound which did not show any gallstones. Patient probably has gastritis will be discharged on Prilosec was evaluated by cardiology. Troponins were obtained EKGs are negative for any acute coronary syndrome. This is a noncardiac chest pain. Review of Systems REVIEW OF SYSTEMS: CONSTITUTIONAL: No fever, no malaise, no fatigue. HEENT: No recent visual problems or hearing problems. Denied any sore throat. CARDIOVASCULAR: No chest pain, orthopnea, PND, no palpitations, no syncope. PULMONARY: No shortness of breath, no cough, no hemoptysis. GASTROINTESTINAL: As mentioned in HPI and did have nausea NEUROLOGICAL: No headaches, no weakness, no numbness. HEMATOLOGICAL: Denies any bleeding or petechiae. GENITOURINARY: Denies any burning micturition, frequency, or urgency. MUSCULOSKELETAL/RHEUMATOLOGICAL: Denies any joint pain, swelling, or any muscle pain. ENDOCRINE: Denies any polyuria or polydipsia. The rest of the 14-point review of systems is negative. Past Medical History Past Medical History: Asthma, Diabetes Mellitus, Hyperlipidemia, Hypertension, Osteoarthritis (OA), Sleep Apnea/CPAP/BIPAP Additional Past Medical History / Comment(s): uses c-pap machine, constipation due to norco., states torn left rotator cuff., states constant pain all over, hx of agent orange exposure, ptsd(pt stated if he's sleeping call his name drom door". upper rt dental bridge,hx broken nose, had shingels vaccine-not sure of date. History of Any Multi-Drug Resistant Organisms: None Reported Past Surgical History: Joint Replacement Additional Past Surgical History / Comment(s): Nemesio total knees, lipoma removed, vasectomy, right rotator cuff., cataracts.lt carpal tunnel release, lt thumb sx , "holes in nemesio retina repaired Past Anesthesia/Blood Transfusion Reactions: No Reported Reaction Smoking Status: Former smoker - Past Family History Father Family Medical History: Cancer Additional Family Medical History / Comment(s): asbestos exposure Medications and Allergies Home Medications Medication Instructions Recorded Confirmed Type Cromolyn Sodium [NasalCrom] 1 spray INHALATION BID 05/03/16 07/31/18 History HYDROcodone/APAP 10-325MG [[place] 1 tab PO 5XD PRN 05/03/16 07/31/18 History 10-325] Hydrochlorothiazide [Hydrodiuril] 25 mg PO DAILY 05/03/16 07/31/18 History Insulin Glargine [Lantus] 40 unit INJ QAM 05/03/16 07/31/18 History Lisinopril 40 mg PO DAILY 05/03/16 07/31/18 History glipiZIDE [Glucotrol] 10 mg PO BID 05/03/16 07/31/18 History metFORMIN HCL [Glucophage] 1,000 mg PO BID 05/03/16 07/31/18 History Atorvastatin [Lipitor] 20 mg PO HS 05/15/18 07/31/18 History Fluticasone Nasal [place] [Flonase 2 spray EA NOSTRIL DAILY 05/15/18 07/31/18 History Nasal [place]] Multivitamins, Thera [Multivitamin 1 tab PO DAILY 05/15/18 07/31/18 History (formulary)] Pseudoephedrine HCl [Sudafed] 120 mg PO BID PRN 05/15/18 07/31/18 History Viagra (Unknown Dose) 1 tab PO DIRECTED 05/15/18 07/31/18 History Artificial Tears-Hypromellose 1 drop BOTH EYES DAILY 07/31/18 07/31/18 History [Artificial Tear Drops] Capsaicin [Zostrix] 1 applic TOPICAL Q6HR 07/31/18 07/31/18 History Naloxone HCl [Narcan] 4 mg NASAL DIRECTED 07/31/18 07/31/18 History Sodium Chloride 0.65% Nasal [Deep 2 spray NASAL DAILY 07/31/18 07/31/18 History Sea (Saline)] Triamcinolone 0.1% Cream [Kenalog 1 applic TOPICAL DAILY 07/31/18 07/31/18 History 0.1% Cream] traZODone HCL 150 mg PO HS 07/31/18 07/31/18 History Omeprazole [PriLOSEC] 40 mg PO AC-BRKFST #14 capsule. 08/01/18 Rx Allergies Allergy/AdvReac Type Severity Reaction Status Date / Time lovastatin Allergy Unknown Verified 07/31/18 15:20 sesame oil Allergy Anaphylaxis Verified 07/31/18 15:20 simvastatin Allergy Unknown Verified 07/31/18 15:20 Physical Exam Vitals: Vital Signs Temp Pulse Pulse Resp BP BP Pulse Ox 08/01/18 12:00 97.8 F 71 16 194/103 95 08/01/18 08:00 97.8 F 69 154/92 94 L 08/01/18 03:44 97.7 F 66 16 142/72 95 08/01/18 03:12 18 07/31/18 23:58 18 07/31/18 23:14 97.7 F 74 18 133/65 98 07/31/18 20:00 18 07/31/18 18:55 98.3 F 105 H 18 156/68 95 07/31/18 18:00 93 16 159/87 07/31/18 17:30 77 20 159/87 98 07/31/18 17:00 64 17 163/91 07/31/18 16:30 65 17 169/82 07/31/18 16:00 71 10 L 167/90 Intake and Output 08/01/18 08/01/18 08/01/18 06:59 14:59 22:59 Other: Voiding Method Toilet Toilet # Voids 1 1 PHYSICAL EXAMINATION: GENERAL: The patient is alert and oriented x3, not in any acute distress. Morbidly obese HEENT: Pupils are round and equally reacting to light. EOMI. No scleral icterus. No conjunctival pallor. Normocephalic, atraumatic. No pharyngeal erythema. No thyromegaly. CARDIOVASCULAR: S1 and S2 present. No murmurs, rubs, or gallops. PULMONARY: Chest is clear to auscultation, no wheezing or crackles. ABDOMEN: Soft, nontender, nondistended, normoactive bowel sounds. No palpable organomegaly. MUSCULOSKELETAL: No joint swelling or deformity. EXTREMITIES: No cyanosis, clubbing, or pedal edema. NEUROLOGICAL: Gross neurological examination did not reveal any focal deficits. SKIN: No rashes. Results CBC & Chem 7: 07/31/18 13:51 07/31/18 13:51 Labs: Abnormal Lab Results - Last 24 Hours (Table) 07/31/18 07/31/18 07/31/18 Range/Units 13:51 19:29 20:36 POC Glucose (mg/dL) 227 H (75-99) mg/dL Total Creatine Kinase 253 H (55-170) U/L CK-MB (CK-2) 2.8 H (0.0-2.4) ng/mL Triglycerides 234 H (<150) mg/dL 08/01/18 08/01/18 08/01/18 Range/Units 01:14 06:42 11:24 POC Glucose (mg/dL) 162 H 208 H (75-99) mg/dL Total Creatine Kinase 213 H (55-170) U/L CK-MB (CK-2) 2.8 H (0.0-2.4) ng/mL Triglycerides (<150) mg/dL Thrombosis Risk Factor Assmnt - Choose All That Apply Any of the Below Risk Factors Present?: Yes Each Factor Represents 1 point: Obesity (BMI >25) Other Risk Factors: Yes Each Risk Factor Represents 2 Points: Age 61-74 years Other congenital or acquired thrombophilia - If yes, enter type in comment: No Thrombosis Risk Factor Assessment Total Risk Factor Score: 3 Thrombosis Risk Factor Assessment Level: Moderate Risk Assessment and Plan Plan: -Epigastric pain: Rule out acute coronary syndromes cardia valid the patient epigastric abdominal pain is secondary to gastritis I do not believe patient has pancreatitis gallbladder ultrasound was done ruled out the any gallbladder pathology patient does have some hydrops of the gallbladder, gallstones at this time. Patient will be discharged today in stable medical condition to home -Asthma without any acute exacerbation -Hyperlipidemia -Hypertension -Sleep apnea Patient in for above-mentioned medical problems will continue his medications naproxen was discontinued patient will follow-up with his primary care patient in 3-5 days.
[2018-08-01 15:51] VITALS: BP 184/95; PULSE 82; TEMP 98
[2018-08-01 17:15] LABS: Hemoglobin A1C 8.1 % (4.0-6.0)
== END 2018-08-01 16:29 | disposition home or self-care (01) ==
LOC: EC 13:22 → 1SOBS 15:25
PROVIDERS: ADMIT Internal Medicine; ATTEND Internal Medicine
DX: R07.89 Other chest pain (principal); E11.9 Type 2 diabetes mellitus without complications; J45.909 Unspecified asthma, uncomplicated; K29.70 Gastritis, unspecified, without bleeding; K82.1 Hydrops of gallbladder; E78.5 Hyperlipidemia, unspecified; I10 Essential (primary) hypertension; M19.90 Unspecified osteoarthritis, unspecified site; G47.33 Obstructive sleep apnea (adult) (pediatric); E66.9 Obesity, unspecified; Z68.38 Body mass index [BMI] 38.0-38.9, adult; Z99.89 Dependence on other enabling machines and devices; Z77.098 Contact with and (suspected) exposure to other hazardous, chiefly nonmedicinal, chemicals; Z79.899 Other long term (current) drug therapy; Z79.4 Long term (current) use of insulin; Z88.8 Allergy status to other drugs, medicaments and biological substances; Z87.891 Personal history of nicotine dependence; F43.10 Post-traumatic stress disorder, unspecified; I25.2 Old myocardial infarction
CPT/HCPCS: 99285; 36415; 93005; 93306; 80061; 80053; 82550 ×2; 82553 ×2; 83690; 83735; 84484 ×2; 85025; 85610; 85730; 83036; 71046; 76705; G0378 ×2

== ENCOUNTER 2018-08-16 22:45 | Emergency (ER) | payer OTHER ==
[2018-08-16 22:58] VITALS: RESP 18
[2018-08-16] MEDS ORDERED: OXYMETAZOLINE 0.05% NASL SPRAY 1 SPRAY BOTTLE NASAL STA (22:58)
[2018-08-16] MEDS ORDERED: MORPHINE SULFATE 4 MG/ML SYRINGE IM STA (23:54)
--- NOTE | 2018-08-17 00:04 | ED ---
General Adult HPI - General Chief complaint: ENT Stated complaint: Nose bleed- post op Time Seen by Provider: 08/16/18 22:56 Source: patient, RN notes reviewed, old records reviewed Mode of arrival: wheelchair Limitations: no limitations - History of Present Illness Initial comments: 73-year-old male presenting with nosebleed. Patient is postop septoplasty. Today. He developed nosebleed approximately 2 hours prior to arrival. Patient is not on anticoagulation. - Related Data Home Medications Medication Instructions Recorded Confirmed HYDROcodone/APAP 10-325MG [[place] 1 tab PO 5XD PRN 05/03/16 08/16/18 10-325] Hydrochlorothiazide [Hydrodiuril] 25 mg PO DAILY 05/03/16 08/16/18 Insulin Glargine [Lantus] 40 unit INJ QAM 05/03/16 08/16/18 Lisinopril 40 mg PO DAILY 05/03/16 08/16/18 glipiZIDE [Glucotrol] 10 mg PO BID 05/03/16 08/16/18 metFORMIN HCL [Glucophage] 1,000 mg PO BID 05/03/16 08/16/18 Atorvastatin [Lipitor] 20 mg PO HS 05/15/18 08/16/18 Multivitamins, Thera [Multivitamin 1 tab PO DAILY 05/15/18 08/16/18 (formulary)] Pseudoephedrine HCl [Sudafed] 120 mg PO BID PRN 05/15/18 08/16/18 traZODone HCL 150 mg PO HS 07/31/18 08/16/18 Nasal Sprays (Unknown Names) 1 spray EA NOSTRIL DIRECTED PRN 08/10/18 Previous Rx's Medication Instructions Recorded Omeprazole [PriLOSEC] 40 mg PO AC-BRKFST #14 capsule. 08/01/18 Allergies Allergy/AdvReac Type Severity Reaction Status Date / Time lovastatin Allergy Muscle Verified 08/16/18 23:59 Weakness sesame oil Allergy Anaphylaxis Verified 08/16/18 23:59 simvastatin Allergy Muscle Verified 08/16/18 23:59 Weakness Review of Systems ROS Statement: Those systems with pertinent positive or pertinent negative responses have been documented in the HPI. ROS Other: All systems not noted in ROS Statement are negative. Past Medical History Past Medical History: Asthma, Diabetes Mellitus, Hyperlipidemia, Hypertension, Osteoarthritis (OA), Sleep Apnea/CPAP/BIPAP Additional Past Medical History / Comment(s): uses c-pap machine, constipation due to norco., states torn left rotator cuff., states constant pain all over, hx of agent orange exposure, ptsd(pt stated if he's sleeping call his name drom door". upper rt dental bridge,hx broken nose, had shingels vaccine-not sure of date. History of Any Multi-Drug Resistant Organisms: None Reported Past Surgical History: Joint Replacement Additional Past Surgical History / Comment(s): Nemesio total knees, lipoma removed, vasectomy, right rotator cuff., cataracts.lt carpal tunnel release, lt thumb sx , "holes in nemesio retina repaired Past Anesthesia/Blood Transfusion Reactions: No Reported Reaction Past Psychological History: PTSD Smoking Status: Former smoker Past Alcohol Use History: Heavy Past Drug Use History: None Reported - Past Family History Father Family Medical History: Cancer Additional Family Medical History / Comment(s): asbestos exposure General Exam Limitations: no limitations General appearance: alert, in no apparent distress Head exam: Present: atraumatic, normocephalic Eye exam: Present: normal appearance, PERRL ENT exam: Present: other (Patient has nasal splint in place, bleeding predominantly from the left knee air. There is blood in the oropharynx.) Neck exam: Present: normal inspection. Absent: tenderness, meningismus Respiratory exam: Present: normal lung sounds bilaterally. Absent: respiratory distress, wheezes Cardiovascular Exam: Present: regular rate, normal rhythm GI/Abdominal exam: Present: soft. Absent: distended, tenderness Course Vital Signs 08/16/18 22:56 Temperature 98 F Pulse Rate 83 Respiratory 18 Rate Blood Pressure 150/80 O2 Sat by Pulse 98 Oximetry - Reevaluation(s) Reevaluation #1: 08/17/18 1966 Case is discussed with Dr. Cameron, will evaluate patient in the ER. Medical Decision Making - Medical Decision Making 73-year-old presenting with nosebleed postop septoplasty earlier today. Patient is evaluated emergency department by his ENT surgeon Dr. Marsh, bilateral nasal packing is applied and patient is stable for discharge and outpatient follow-up. He is started on antibiotics prescribed by ENT. Disposition Clinical Impression: Epistaxis Disposition: HOME SELF-CARE Condition: Good Instructions: Nosebleed (ED) Is patient prescribed a controlled substance at d/c from ED?: No Referrals: [facility],Clinic [Primary Care Provider] - 1-2 days Zuhair Chow MD [STAFF PHYSICIAN] - 1-2 days Time of Disposition: 00:47
[2018-08-17 01:05] VITALS: BP 156/91; PULSE 100; TEMP 97
--- NOTE | 2018-08-17 07:27 | CONS ---
CONSULTATION REASON FOR CONSULTATION: Epistaxis. HISTORY: This is a 73-year-old white male who earlier today underwent a septoplasty and inferior turbinoplasty. He was doing well at the time of discharge. This evening he started having difficulty with epistaxis, mainly on the left side. He came to the ER for evaluation. The ER physician saw him and attempted to place a nasal pack on the left side, but due to the nasal splints in place, this was not completely effective and they are quite uncomfortable for the patient and therefore I was called to evaluate the patient. He of note does take naproxen on a regular basis and was instructed preoperatively to stop 7 days before and he stopped 5 days before surgery. He also was instructed postoperatively by the nurses to that he could start this today and therefore he took one tonight. This may be a factor in his bleeding and does understand this. His blood pressure has been systolic as high as 150 and generally, he states he does not having difficulty with his blood pressure. PHYSICAL EXAM: Vital signs overall stable. The nasal exam shows a Merocel pack, which is only in place approximately 2 cm on the left side. There was some oozing from both nostrils as well as posteriorly. The left-sided Merocel pack was removed. Nasal septal splints were removed without difficulty. There was bleeding about midway back on the left nasal septum as well as some mild oozing on the right also. This was all suctioned. It was elected to place an 8 cm Merocel pack on the left and a 6 cm Merocel pack on the right. This controlled the bleeding. He did have some mucous drainage, but otherwise no bleedings anteriorly or posteriorly. He did have some discomfort, but did have a shot of morphine which helped this. He does have [place] at home. ASSESSMENT: Postoperative epistaxis, status post septoplasty. PLAN: Patient appears to be discharged to home. We will leave his packs in place until Tuesday, which was his original time when he was going to have his splints removed. Will see him in the office at that time, although he will call if he has questions or concerns in the meantime, especially the ongoing bleeding or recurrent bleeding. He is Naprosyn. He does have Keflex at home also prophylactically. Continue no strenuous activity, heavy lifting or straining and head of bed up. MMODL / IJN: [id number] /
== END 2018-08-17 01:03 | disposition home or self-care (01) ==
LOC: EC 22:45
DX: R04.0 Epistaxis (principal); J45.909 Unspecified asthma, uncomplicated; E11.9 Type 2 diabetes mellitus without complications; E78.5 Hyperlipidemia, unspecified; I10 Essential (primary) hypertension; M19.90 Unspecified osteoarthritis, unspecified site; G47.30 Sleep apnea, unspecified; Z99.89 Dependence on other enabling machines and devices; F43.10 Post-traumatic stress disorder, unspecified; Z87.891 Personal history of nicotine dependence; Z79.4 Long term (current) use of insulin; Z79.899 Other long term (current) drug therapy; Z88.8 Allergy status to other drugs, medicaments and biological substances; Z91.018 Allergy to other foods; Z98.890 Other specified postprocedural states
CPT/HCPCS: 99284; 30901 ×2; 96372; J2270

== ENCOUNTER → 2018-08-16 | Day surgery (SDC) | payer OTHER ==
[2018-08-10 10:20] VITALS: BMI 38.6
[~2018-08-16] MED LIST changes: +DEXAMETHASONE SOD PHOS (MDV) 100 MG/10 ML VIAL ONE; +DEXAMETHASONE SOD PHOSPHATE 4 MG/ML 1 ML VIAL IV ONE; +FAMOTIDINE 20 MG/2 ML VIAL IV ONE; +HYDROmorphone 1 MG/ML 1 ML SYRINGE IVP ONE; +INSULIN ASPART 100 UNIT/ML 1 ML 10 ML VIAL SQ ONE; +IV FLUID CONTINUATION 1,000 ML IV ONE; +LACTATED RINGERS 1,000 ML IV ONE; +LIDOCAINE 1% INJ 10MG/ML (20 ML MDV) ONE; +LIDOCAINE 1%-EPI 1:100,000 30 ML VIAL SUBMUCOSAL ONE; -MIDAZOLAM 2 MG/2 ML VIAL IV PRN; +MIDAZOLAM 2 MG/2 ML VIAL IVP ONE; +MIDAZOLAM 2 MG/2 ML VIAL ONE; +PROPOFOL 10 MG/ML 20 ML VIAL IV ONE; +SUCCINYLCHOLINE CHLORIDE VIAL 200 MG/10 ML VIAL IV ONE; +ceFAZolin 1,000 MG in DEXTROSE/WATER 1 50ML.BAG IV ONE; -fentaNYL (PF) 50 MCG/ML 2 ML AMP IV PRN; +fentaNYL (PF) 50 MCG/ML 2 ML AMP ONE
[2018-08-16 12:10] LABS: Glucose,Whole Blood 249 mg/dL (75-99)
[2018-08-16] MEDS: OXYMETAZOLINE 0.05% NASL SPRAY 1 SPRAY BOTTLE NASAL ONE ×5 (12:10→12:30)
--- NOTE | 2018-08-16 14:10 | P.OP ---
Date of Procedure: 08/16/18 Preoperative Diagnosis: Deviated nasal septum Inferior turbinate hypertrophy Postoperative Diagnosis: Same Procedure(s) Performed: Septoplasty Outfracture and submucous resection of the inferior turbinates Anesthesia: PILARA Surgeon: Zuhair Chow Estimated Blood Loss (ml): 5 Pathology: other (Nasal septal bone and cartilage) Condition: stable Disposition: PACU Indications for Procedure: This 73-year-old white male who has difficulties with chronic nasal airway obstruction and mouth breathing tendencies. He does have sleep apnea but does understand that septoplasty and inferior turbinoplasty may not relieve the sleep apnea but may make his CPAP more effective. Operative Findings: Nasal septum deviated to the left the inferior turbinates are hypertrophied bilaterally Description of Procedure: The patient was brought in the operative suite and placed in a supine position. The patient underwent induction of general anesthesia with oral endotracheal intubation without difficulty. The patient was prepped and draped in usual aseptic fashion. 1% lidocaine with 1 1000 epinephrine was infused submucosally both sides nasal septum. While this taking vasoconstrictive effect the inferior turbinates were infractured with Perkins elevator partial submucous resection inferior turbinates performed with Coblation wand with coagulation setting to ablate a portion of the submucosal soft tissue and thus performing submucous resection. The inferior turbinates were then outfractured with the Perkins elevator. A left hemitransfixion incision was then made with the mucoperichondrial mucoperiosteal flap on left elevated. Bony cartilaginous junction was disarticulated and the mucoperiosteal flap on the right was elevated. Bony nasal septal deformities were removed Carline forceps. An inferior cartilaginous strip was removed leaving a full 1.5 cm caudal strut. Checking intranasally this corrected the nasoseptal deformities and the hemitransfixion incision was closed with a running 4-0 chromic suture. Bilateral Nicholas airway splints coated bacitracin ointment were placed in nasal cavities and sutured trans-septally with a 4-0 nylon suture. The patient was suctioned in oral gastric fashion and was allowed to emerge from general anesthesia having tolerated procedure well the patient was extubated in the operating suite and transferred to postop recovery area in satisfactory condition.
[2018-08-16 14:20] VITALS: TEMP 97
[2018-08-16 14:53] VITALS: PULSE 82; RESP 16
[2018-08-16 15:17] VITALS: BP 136/61
== END | disposition home or self-care (01) ==
LOC: OR 10:12
PROVIDERS: ATTEND Otolaryngology
DX: J34.2 Deviated nasal septum (principal); J34.3 Hypertrophy of nasal turbinates; E11.9 Type 2 diabetes mellitus without complications; K21.9 Gastro-esophageal reflux disease without esophagitis; G47.33 Obstructive sleep apnea (adult) (pediatric); I10 Essential (primary) hypertension; E78.5 Hyperlipidemia, unspecified; E66.01 Morbid (severe) obesity due to excess calories; Z79.4 Long term (current) use of insulin; Z79.899 Other long term (current) drug therapy; Z87.891 Personal history of nicotine dependence; Z68.37 Body mass index [BMI] 37.0-37.9, adult; Z99.89 Dependence on other enabling machines and devices; Z88.8 Allergy status to other drugs, medicaments and biological substances
CPT/HCPCS: 88300; 30140; 30520; J2250; J0330; J1100 ×2; J2405; J2001; J3010; J1170; J0690; J2704

== ENCOUNTER 2020-09-24 06:26 | Emergency (ER) | payer OTHER ==
[2020-09-24 06:40] VITALS: BP 170/94; PULSE 96; RESP 18; TEMP 97.7
--- NOTE | 2020-09-24 07:20 | ED ---
General Adult HPI - General Chief complaint: Recheck/Abnormal Lab/Rx Stated complaint: body aches Time Seen by Provider: 09/24/20 06:44 Source: patient, RN notes reviewed, old records reviewed Mode of arrival: wheelchair Limitations: no limitations - History of Present Illness Initial comments: 75-year-old male presents emergency department today for evaluation for complaints of being out of pain medication. Patient reports that he takes 5 Vicodin a day to manage chronic pain. He states that his pain clinic is now prescribed him only to a day and he is now out of them. 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 Patient states that he has been troubled with getting his doctors to send him to a specialist for chronic pain. Patient denies any falls or trauma. He states that he has general muscle aches. Patient states that he has no fevers or chills or nausea or vomiting, chest pain or shortness of breath. - Related Data Home Medications Medication Instructions Recorded Confirmed HYDROcodone/APAP 10-325MG [[place] 1 tab PO 5XD PRN 05/03/16 08/16/18 10-325] Insulin Glargine [Lantus] 40 unit INJ QAM 05/03/16 08/16/18 glipiZIDE [Glucotrol] 10 mg PO BID 05/03/16 08/16/18 hydroCHLOROthiazide [Hydrodiuril] 25 mg PO DAILY 05/03/16 08/16/18 lisinopriL 40 mg PO DAILY 05/03/16 08/16/18 metFORMIN HCL [Glucophage] 1,000 mg PO BID 05/03/16 08/16/18 Atorvastatin [Lipitor] 20 mg PO HS 05/15/18 08/16/18 Multivitamins, Thera [Multivitamin 1 tab PO DAILY 05/15/18 08/16/18 (formulary)] Pseudoephedrine HCl [Sudafed] 120 mg PO BID PRN 05/15/18 08/16/18 traZODone HCL 150 mg PO HS 07/31/18 08/16/18 Nasal Sprays (Unknown Names) 1 spray EA NOSTRIL DIRECTED PRN 08/10/18 08/16/18 Previous Rx's Medication Instructions Recorded Omeprazole [PriLOSEC] 40 mg PO AC-BRKFST #14 capsule. 08/01/18 HYDROcodone/APAP 10-325MG [[place] 1 tab PO Q6H PRN #15 tab 09/24/20 10-325] Allergies Allergy/AdvReac Type Severity Reaction Status Date / Time lovastatin Allergy Muscle Verified 09/24/20 06:40 Weakness sesame oil Allergy Anaphylaxis Verified 09/24/20 06:40 simvastatin Allergy Muscle Verified 09/24/20 06:40 Weakness Review of Systems ROS Statement: Those systems with pertinent positive or pertinent negative responses have been documented in the HPI. ROS Other: All systems not noted in ROS Statement are negative. Past Medical History Past Medical History: Asthma, Diabetes Mellitus, Hyperlipidemia, Hypertension, Osteoarthritis (OA), Sleep Apnea/CPAP/BIPAP Additional Past Medical History / Comment(s): uses c-pap machine, constipation due to norco., states torn left rotator cuff., states constant pain all over, hx of agent orange exposure, ptsd(pt stated if he's sleeping call his name drom door". upper rt dental bridge,hx broken nose, had shingels vaccine-not sure of date. History of Any Multi-Drug Resistant Organisms: None Reported Past Surgical History: Joint Replacement Additional Past Surgical History / Comment(s): Nemesio total knees, lipoma removed, vasectomy, right rotator cuff., cataracts.lt carpal tunnel release, lt thumb sx, "holes in nemesio retina repaired Past Anesthesia/Blood Transfusion Reactions: No Reported Reaction Past Psychological History: PTSD Smoking Status: Never smoker Past Alcohol Use History: Heavy Past Drug Use History: None Reported - Past Family History Father Family Medical History: Cancer Additional Family Medical History / Comment(s): asbestos exposure General Exam - General Exam Comments Initial Comments: 75-year-old male. Limitations: no limitations General appearance: alert, in no apparent distress Head exam: Present: atraumatic, normocephalic, normal inspection Eye exam: Present: normal appearance, PERRL, EOMI. Absent: scleral icterus, conjunctival injection, periorbital swelling ENT exam: Present: normal exam, mucous membranes moist Neck exam: Present: normal inspection. Absent: tenderness, meningismus, lymphad enopathy Respiratory exam: Present: normal lung sounds bilaterally Cardiovascular Exam: Present: regular rate, normal rhythm, normal heart sounds. Absent: systolic murmur, diastolic murmur, rubs, gallop, clicks GI/Abdominal exam: Present: soft, normal bowel sounds. Absent: distended, tenderness, guarding, rebound, rigid Extremities exam: Present: normal inspection, full ROM, normal capillary refill, other (Sitting in wheelchair). Absent: tenderness, pedal edema, joint swelling, calf tenderness Back exam: Present: normal inspection Neurological exam: Present: alert Psychiatric exam: Present: normal affect, normal mood Skin exam: Present: warm, dry, intact, normal color. Absent: rash Course Vital Signs 09/24/20 06:31 Temperature 97.7 F Pulse Rate 96 Respiratory 18 Rate Blood Pressure 170/94 O2 Sat by Pulse 98 Oximetry Medical Decision Making - Medical Decision Making 75-year-old male presents emergency department today for evaluation for chronic pain. He reports that he has been out of his current leg and pain medication. 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 Typically prescribed 5 Vicodin a day and has been cut down to 2. He reports that he went through his prescription early. Patient states that he has been searching for relief and further follow-up for this chronic pain management. - Radiology Data Radiology results: report reviewed Disposition Clinical Impression: Chronic pain Disposition: HOME SELF-CARE Condition: Good Instructions (If sedation given, give patient instructions): Chronic Pain (ED), Pain Management (ED) Additional Instructions: Please use medication as discussed. Please follow up with family doctor if symptoms have not improved over the next two days. Please return to the emergency room if your symptoms increase or worsen or for any other concerns. Prescriptions: HYDROcodone/APAP 10-325MG [[place] 10-325] 1 tab PO Q6H PRN #15 tab PRN Reason: Pain Is patient prescribed a controlled substance at d/c from ED?: Yes If prescribed controlled substance>3 days was MAPS reviewed?: Prescribed <3 Days If opioid is for acute pain is fill amount 7 days or less?: Yes If Rx opioid, was Start Talking consent form obtained?: Yes Referrals: [facility],Clinic [Primary Care Provider] - 1-2 days Kyle Ceja MD [STAFF PHYSICIAN] - 1-2 days Time of Disposition: 07:17
== END 2020-09-24 07:43 | disposition home or self-care (01) ==
LOC: EC 06:26
DX: G89.29 Other chronic pain (principal); E11.9 Type 2 diabetes mellitus without complications; I10 Essential (primary) hypertension; E78.5 Hyperlipidemia, unspecified; J45.909 Unspecified asthma, uncomplicated; G47.30 Sleep apnea, unspecified; Z79.4 Long term (current) use of insulin; Z79.899 Other long term (current) drug therapy; Z88.8 Allergy status to other drugs, medicaments and biological substances; Z91.018 Allergy to other foods; Z99.89 Dependence on other enabling machines and devices
CPT/HCPCS: 99283

== ENCOUNTER 2020-09-27 05:33 | Emergency (ER) | payer OTHER ==
[2020-09-27 05:48] VITALS: TEMP 97.8
[2020-09-27 05:52] VITALS: BP 130/87; PULSE 90; RESP 18
--- NOTE | 2020-09-27 06:15 | ED ---
Extremity Problem HPI - General Chief complaint: Extremity Problem,Nontraumatic Stated complaint: pain all over Time Seen by Provider: 09/27/20 05:41 Source: patient, RN notes reviewed, old records reviewed Mode of arrival: ambulatory Limitations: no limitations - History of Present Illness MD Complaint: extremity pain, extremity swelling, joint pain -: year(s) Location: other (all over) History of Same: Yes -: Yes myalgia, Yes arthralgia Radiation: none Severity scale (1-10): 7 Quality: aching Consistency: constant Improves with: nothing Worsens with: nothing - Related Data Home Medications Medication Instructions Recorded Confirmed HYDROcodone/APAP 10-325MG [[place] 1 tab PO 5XD PRN 05/03/16 08/16/18 10-325] Insulin Glargine [Lantus] 40 unit INJ QAM 05/03/16 08/16/18 glipiZIDE [Glucotrol] 10 mg PO BID 05/03/16 08/16/18 hydroCHLOROthiazide [Hydrodiuril] 25 mg PO DAILY 05/03/16 08/16/18 lisinopriL 40 mg PO DAILY 05/03/16 08/16/18 metFORMIN HCL [Glucophage] 1,000 mg PO BID 05/03/16 08/16/18 Atorvastatin [Lipitor] 20 mg PO HS 05/15/18 08/16/18 Multivitamins, Thera [Multivitamin 1 tab PO DAILY 05/15/18 08/16/18 (formulary)] Pseudoephedrine HCl [Sudafed] 120 mg PO BID PRN 05/15/18 08/16/18 traZODone HCL 150 mg PO HS 07/31/18 08/16/18 Nasal Sprays (Unknown Names) 1 spray EA NOSTRIL DIRECTED PRN 08/10/18 08/16/18 Previous Rx's Medication Instructions Recorded Omeprazole [PriLOSEC] 40 mg PO AC-SALAZARKFSLeroy #14 capsule. 08/01/18 HYDROcodone/APAP 10-325MG [[place] 1 tab PO Q6H PRN #15 tab 09/27/20 10-325] Allergies Allergy/AdvReac Type Severity Reaction Status Date / Time lovastatin Allergy Muscle Verified 09/24/20 06:40 Weakness sesame oil Allergy Anaphylaxis Verified 12/09/20 06:40 simvastatin Allergy Muscle Verified 09/24/20 06:40 Weakness Review of Systems ROS Statement: Those systems with pertinent positive or pertinent negative responses have been documented in the HPI. ROS Other: All systems not noted in ROS Statement are negative. Past Medical History Past Medical History: Asthma, Diabetes Mellitus, Hyperlipidemia, Hypertension, Osteoarthritis (OA), Sleep Apnea/CPAP/BIPAP Additional Past Medical History / Comment(s): uses c-pap machine, constipation due to norco., states torn left rotator cuff., states constant pain all over, hx of agent orange exposure, ptsd(pt stated if he's sleeping call his name drom door". upper rt dental bridge,hx broken nose, had shingels vaccine-not sure of date. History of Any Multi-Drug Resistant Organisms: None Reported Past Surgical History: Joint Replacement Additional Past Surgical History / Comment(s): Nemesio total knees, lipoma removed, vasectomy, right rotator cuff., cataracts.lt carpal tunnel release, lt thumb sx, "holes in nemesio retina repaired Past Anesthesia/Blood Transfusion Reactions: No Reported Reaction Past Psychological History: PTSD Smoking Status: Former smoker Past Alcohol Use History: Heavy Past Drug Use History: None Reported - Past Family History Father Family Medical History: Cancer Additional Family Medical History / Comment(s): asbestos exposure General Exam Limitations: no limitations General appearance: alert, in no apparent distress Head exam: Present: atraumatic, normocephalic, normal inspection Eye exam: Present: normal appearance, PERRL, EOMI. Absent: scleral icterus, conjunctival injection, periorbital swelling ENT exam: Present: normal exam, mucous membranes moist Neck exam: Present: normal inspection. Absent: tenderness, meningismus, lymphadenopathy Respiratory exam: Present: normal lung sounds bilaterally. Absent: respiratory distress, wheezes, rales, rhonchi, stridor Cardiovascular Exam: Present: regular rate, normal rhythm, normal heart sounds. Absent: systolic murmur, diastolic murmur, rubs, gallop, clicks GI/Abdominal exam: Present: soft, normal bowel sounds. Absent: distended, tenderness, guarding, rebound, rigid Extremities exam: Present: normal inspection, full ROM, normal capillary refill. Absent: tenderness, pedal edema, joint swelling, calf tenderness Back exam: Present: normal inspection Neurological exam: Present: alert, oriented X3, CN II-XII intact Psychiatric exam: Present: normal affect, normal mood Skin exam: Present: warm, dry, intact, normal color. Absent: rash Course Vital Signs 09/27/20 09/27/20 05:40 05:51 Temperature 97.8 F Pulse Rate 90 Respiratory 18 Rate Blood Pressure 130/87 O2 Sat by Pulse 97 Oximetry Disposition Clinical Impression: Medication refill, Chronic pain Disposition: HOME SELF-CARE Condition: Good Instructions (If sedation given, give patient instructions): Medicine Refill (ED) Prescriptions: HYDROcodone/APAP 10-325MG [[place] 10-325] 1 tab PO Q6H PRN #15 tab PRN Reason: Pain Is patient prescribed a controlled substance at d/c from ED?: No Referrals: [facility],Clinic [Primary Care Provider] - 1-2 days
== END 2020-09-27 06:20 | disposition home or self-care (01) ==
LOC: EC 05:33
DX: G89.29 Other chronic pain (principal); Z76.0 Encounter for issue of repeat prescription; E11.9 Type 2 diabetes mellitus without complications; E78.5 Hyperlipidemia, unspecified; I10 Essential (primary) hypertension; M19.90 Unspecified osteoarthritis, unspecified site; G47.30 Sleep apnea, unspecified; F43.10 Post-traumatic stress disorder, unspecified; Z79.4 Long term (current) use of insulin; Z79.899 Other long term (current) drug therapy; Z87.891 Personal history of nicotine dependence; Z88.8 Allergy status to other drugs, medicaments and biological substances; Z91.018 Allergy to other foods; Z99.89 Dependence on other enabling machines and devices; Z96.653 Presence of artificial knee joint, bilateral; Z98.890 Other specified postprocedural states
CPT/HCPCS: 99283

== ENCOUNTER 2020-09-30 05:51 | Emergency (ER) | payer OTHER ==
[2020-09-30 05:57] VITALS: BP 148/88; PULSE 96; RESP 18; TEMP 97.5
[2020-09-30] MEDS ORDERED: HYDROcodone/APAP 7.5-325MG 1 EACH TAB PO ONE (06:13)
--- NOTE | 2020-09-30 06:14 | ED ---
Recheck HPI - General Chief Complaint: Recheck/Abnormal Lab/Rx Stated Complaint: pain all over Time Seen by Provider: 09/30/20 06:03 Source: patient Mode of arrival: ambulatory Limitations: no limitations - History of Present Illness Initial Comments: 75yo male presenting for cc of out of pain meds. pt states he is out of his pain medications and was told to come ER if he was. patient has a PCP who is aware of his chronic pain that has been ongoing throught the years, he states "he has seen em all" in regareds to specialists such as orthopedic care and states that "no one can figure out why i have muscle pain" patient states the pain is head to toe daily for >5 years. Patient states they cut his dosing of pain medications, this upset him. patient states he wanted to file a compliant against those physicians. patient denies new pain, changes in pain characteristic. patient recently her x 2 for pain medications. remaining ROS (-) aside from muscle pains. - Related Data Home Medications Medication Instructions Recorded Confirmed HYDROcodone/APAP 10-325MG [[place] 1 tab PO 5XD PRN 05/03/16 08/16/18 10-325] Insulin Glargine [Lantus] 40 unit INJ QAM 05/03/16 08/16/18 glipiZIDE [Glucotrol] 10 mg PO BID 05/03/16 08/16/18 hydroCHLOROthiazide [Hydrodiuril] 25 mg PO DAILY 05/03/16 08/16/18 lisinopriL 40 mg PO DAILY 05/03/16 08/16/18 metFORMIN HCL [Glucophage] 1,000 mg PO BID 05/03/16 08/16/18 Atorvastatin [Lipitor] 20 mg PO HS 05/15/18 08/16/18 Multivitamins, Thera [Multivitamin 1 tab PO DAILY 05/15/18 08/16/18 (formulary)] Pseudoephedrine HCl [Sudafed] 120 mg PO BID PRN 05/15/18 08/16/18 traZODone HCL 150 mg PO HS 07/31/18 08/16/18 Nasal Sprays (Unknown Names) 1 spray EA NOSTRIL DIRECTED PRN 08/10/18 08/16/18 Previous Rx's Medication Instructions Recorded Omeprazole [PriLOSEC] 40 mg PO AC-BRKFST #14 capsule. 08/01/18 HYDROcodone/APAP 10-325MG [[place] 1 tab PO Q6H PRN #15 tab 09/27/20 10-325] Allergies Allergy/AdvReac Type Severity Reaction Status Date / Time lovastatin Allergy Muscle Verified 09/30/20 05:58 Weakness sesame oil Allergy Anaphylaxis Verified 09/30/20 05:58 simvastatin Allergy Muscle Verified 09/30/20 05:58 Weakness Review of Systems ROS Statement: Those systems with pertinent positive or pertinent negative responses have been documented in the HPI. ROS Other: All systems not noted in ROS Statement are negative. Past Medical History Past Medical History: Asthma, Diabetes Mellitus, Hyperlipidemia, Hypertension, Osteoarthritis (OA), Sleep Apnea/CPAP/BIPAP Additional Past Medical History / Comment(s): uses c-pap machine, constipation due to norco., states torn left rotator cuff., states constant pain all over, hx of agent orange exposure, ptsd(pt stated if he's sleeping call his name drom door". upper rt dental bridge,hx broken nose, had shingels vaccine-not sure of date. History of Any Multi-Drug Resistant Organisms: None Reported Past Surgical History: Joint Replacement Additional Past Surgical History / Comment(s): Nemesio total knees, lipoma removed, vasectomy, right rotator cuff., cataracts.lt carpal tunnel release, lt thumb sx, "holes in nemesio retina repaired Past Anesthesia/Blood Transfusion Reactions: No Reported Reaction Past Psychological History: PTSD Smoking Status: Never smoker Past Alcohol Use History: None Reported Past Drug Use History: None Reported - Past Family History Father Family Medical History: Cancer Additional Family Medical History / Comment(s): asbestos exposure General Exam - General Exam Comments Initial Comments: General: The patient is awake and alert, in no distress, and does not appear acutely ill. Eye: Pupils are equal, round and reactive to light, extra-ocular movements are intact. No nystagmus. There is normal conjunctiva bilaterally. No signs of icterus. Neck: The neck is supple, there is no tenderness or JVD. Cardiovascular: There is a regular rate and rhythm. No murmur, rub or gallop is appreciated. Respiratory: Lungs are clear to auscultation, respirations are non-labored, breath sounds are equal. No wheezes, stridor, rales, or rhonchi. Musculoskeletal: Normal ROMat joints, no tenderness. Strength 5/5. Sensation intact. Radial pulses equal bilaterally 2+. Neurological: A&O x 3. CN II-XII intact grossly, There are no obvious motor or sensory deficits. Coordination appears grossly intact. Speech is normal. Skin: Skin is warm and dry and no rashes or lesions are noted. Psychiatric: Cooperative, appropriate mood & affect, normal judgment. Limitations: no limitations Course Vital Signs 09/30/20 05:53 Temperature 97.5 F L Pulse Rate 96 Respiratory 18 Rate Blood Pressure 148/88 O2 Sat by Pulse 99 Oximetry Medical Decision Making - Medical Decision Making 75yo male iwth chronic muscle pain presenting for pain medications. i discussed the appropriate use of ER and PCP. I discussed medication refills when you have a PCP is not appropriate. if patient has new or concerning symptoms we are happy to evaluate patient. patient states he does not need evaluation and just needs the pain medications. patient is establishing care with pain management. I referred patient back to pcp for further chronic pain management. he is agreeab le. kim parameters discussed. Disposition Clinical Impression: Chronic pain Disposition: HOME SELF-CARE Condition: Good Additional Instructions: Please use medication as discussed. Please follow-up with family doctor for further chronic pain management. If develop new/changes in pain may return to ER. Please return to emergency room if the symptoms increase or worsen or for any other concerns. Is patient prescribed a controlled substance at d/c from ED?: No Referrals: [facility],Clinic [Primary Care Provider] - 1-2 days Time of Disposition: 06:14
== END 2020-09-30 06:25 | disposition home or self-care (01) ==
LOC: EC 05:51
DX: M79.10 Myalgia, unspecified site (principal); G89.29 Other chronic pain; E11.9 Type 2 diabetes mellitus without complications; E78.5 Hyperlipidemia, unspecified; G47.33 Obstructive sleep apnea (adult) (pediatric); I10 Essential (primary) hypertension; Z79.4 Long term (current) use of insulin; Z79.899 Other long term (current) drug therapy; Z99.89 Dependence on other enabling machines and devices; Z96.653 Presence of artificial knee joint, bilateral; Z98.42 Cataract extraction status, left eye; Z98.41 Cataract extraction status, right eye; Z88.8 Allergy status to other drugs, medicaments and biological substances; Z91.048 Other nonmedicinal substance allergy status
CPT/HCPCS: 99282

== ENCOUNTER → 2020-10-08 | Outpatient (CLI) | payer OTHER ==
--- NOTE | 2020-10-08 16:32 | CONS ---
CONSULTATION DATE OF SERVICE: 10/08/2020 This patient is a 75-year-old gentleman who has been evaluated in [facility] for obstructive sleep apnea-hypopnea syndrome. HISTORY OF PRESENT ILLNESS/SLEEP-WAKE EVALUATION: The patient has history of obstructive sleep apnea for about 20 years. He was on treatment with CPAP, and then after he lost around 60 pounds and had surgery for nasal deviation he felt that he was breathing better during sleep and he stopped using his CPAP machine. His sleep schedule is from 10 p.m. to 10 a.m. No problems with falling asleep. During the night he grinds his teeth and he wakes up with nocturia 5 times. During the day he does not feel sleepiness. [place] Sleepiness Scale is 2. No history of hypnagogic hallucinations, sleep paralysis or cataplexy. PAST MEDICAL HISTORY: Positive for hypertension, diabetes mellitus, hyperlipidemia, sexual dysfunction. PAST SURGICAL HISTORY: Surgery for nasal septum deviation and for carpal tunnel syndrome. MEDICATIONS: 1. Fluticasone nasal spray. 2. Lisinopril 40 mg once a day. 3. Hydrochlorothiazide 50 mg once a day. 4. Atorvastatin 40 mg once a day. 5. Metformin 1000 mg twice a day. 6. 100 mg. SOCIAL HISTORY: He quit smoking about 25 years ago. Alcohol consumption: None. FAMILY HISTORY: Family with history of cancer in his father, during sleep by his mother. REVIEW OF SYSTEMS: Awakenings from sleep with nocturia up to 5 times. PHYSICAL EXAMINATION: GENERAL: A pleasant gentleman without distress. VITAL SIGNS: BP 129/84, HR 90, RR 15, height 5 feet 10 inches, weight 257, BMI 36.7, temperature 97.9, oxygen saturation at room air 96%. HEENT: PERRLA, EOMI. Evaluation of oropharynx showed tongue protrudes midline. Mallampati II to III. NECK: Supple. No JVD. Thyroid is not palpable. Neck measures 17 inches in circumference. LUNGS: Clear to percussion and to auscultation. Good air exchange. No wheezing or rhonchi. HEART: S1, S2 regular. No murmurs, gallops or rubs. ABDOMEN: Obese. EXTREMITIES: No clubbing or cyanosis. CURATOR OF COLLECTIONS: Awake, alert, and oriented X3. Cranial nerves 2 to 7 intact. There is no fasciculation or atrophy. noted. No focal deficits observed. IMPRESSION: 1. Obstructive sleep apnea-hypopnea syndrome for about 20 years. The patient felt better after losing 60 pounds and after having surgery for nasal deviation, but he continued to wake up from sleep multiple times with nocturia; wide neck measuring 17 inches; obstructive sleep apnea-hypopnea syndrome. 2. Obesity. BMI 36.7. 3. Allergies. 4. Hypertension. 5. Hyperlipidemia. 6. Diabetes mellitus. 7. Sexual dysfunction. 8. History of carpal tunnel syndrome, status post surgical treatment on the left side. 9. Status post surgery for nasal septum deviation in 2018. PLAN: 1. Polysomnography for evaluation of patient's breathing during sleep. 2. I will see the patient for follow-up visit after the sleep test to discuss results of the sleep study and following plan. 3. Losing weight. 4. Sleep hygiene with regular time in bed for at least 7-1/2 to 8 hours. 5. No driving if feeling sleepiness. Thank you very much for referring this patient for consultation. Sincerely, Ashok Flores MD, PhD, FAASM Diplomat of [place] [employer] [place] [employer] [facility] T[facility] [place] MMODL / IJN: [id number] /
== END | disposition home or self-care (01) ==
LOC: SLEEP 15:11
PROVIDERS: ATTEND Internal Medicine
DX: G47.33 Obstructive sleep apnea (adult) (pediatric) (principal); E66.9 Obesity, unspecified; I10 Essential (primary) hypertension; E78.5 Hyperlipidemia, unspecified; E11.9 Type 2 diabetes mellitus without complications; N53.9 Unspecified male sexual dysfunction; Z86.69 Personal history of other diseases of the nervous system and sense organs; Z79.891 Long term (current) use of opiate analgesic; Z79.899 Other long term (current) drug therapy; Z68.36 Body mass index [BMI] 36.0-36.9, adult; Z79.84 Long term (current) use of oral hypoglycemic drugs; Z87.891 Personal history of nicotine dependence
CPT/HCPCS: 99211

== ENCOUNTER 2020-10-22 02:21 | Emergency (ER) | payer OTHER ==
[2020-10-22 02:27] VITALS: PULSE 103; RESP 20; TEMP 97.6
[2020-10-22 02:28] VITALS: BP 171/80
--- NOTE | 2020-10-22 02:46 | ED ---
Recheck HPI - General Chief Complaint: Recheck/Abnormal Lab/Rx Stated Complaint: all over body pain Time Seen by Provider: 10/22/20 02:28 Source: patient Mode of arrival: ambulatory Limitations: no limitations - History of Present Illness Initial Comments: This patient is a 75-year-old man with history of chronic bilateral lower extremity myalgias and shoulder myalgias. He states that he until 3 months ago, was receiving 140 tablets of [place] 10 mg pain medication for this problem. The patient states that he was attempting to have a second opinion through Dr. Ceja, and because of that his previous prescribers were attempting to take him off the [place] that they were prescribing. Patient states that he has run out and he is having a flareup of his chronic pain. He denies any new symptoms. No weakness or numbness of the extremities. No change in bladder or bowel function. MD Complaint: medication refill request Onset/Timin -: days(s) Returns Today for: request for prescription Symptoms Since Prior Visit: no new symptoms Associated Symptoms: none - Related Data Home Medications Medication Instructions Recorded Confirmed HYDROcodone/APAP 10-325MG [[place] 1 tab PO 5XD PRN 05/03/16 08/16/18 10-325] Insulin Glargine [Lantus] 40 unit INJ QAM 05/03/16 08/16/18 glipiZIDE [Glucotrol] 10 mg PO BID 05/03/16 08/16/18 hydroCHLOROthiazide [Hydrodiuril] 25 mg PO DAILY 05/03/16 08/16/18 lisinopriL 40 mg PO DAILY 05/03/16 08/16/18 metFORMIN HCL [Glucophage] 1,000 mg PO BID 05/03/16 08/16/18 Atorvastatin [Lipitor] 20 mg PO HS 05/15/18 08/16/18 Multivitamins, Thera [Multivitamin 1 tab PO DAILY 05/15/18 08/16/18 (formulary)] Pseudoephedrine HCl [Sudafed] 120 mg PO BID PRN 05/15/18 08/16/18 traZODone HCL 150 mg PO HS 07/31/18 08/16/18 Nasal Sprays (Unknown Names) 1 spray EA NOSTRIL DIRECTED PRN 08/10/18 08/16/18 Previous Rx's Medication Instructions Recorded Omeprazole [PriLOSEC] 40 mg PO AC-BRKFST #14 capsule. 08/01/18 HYDROcodone/APAP 10-325MG [[place] 1 tab PO Q6H PRN #15 tab 09/27/20 10-325] HYDROcodone/APAP 10-325MG [[place] 1 tab PO Q4HR PRN 4 Days #15 tab 10/22/20 10-325] Allergies Allergy/AdvReac Type Severity Reaction Status Date / Time lovastatin Allergy Muscle Verified 10/22/20 02:27 Weakness sesame oil Allergy Anaphylaxis Verified 10/22/20 02:27 simvastatin Allergy Muscle Verified 10/22/20 02:27 Weakness Review of Systems ROS Statement: Those systems with pertinent positive or pertinent negative responses have been documented in the HPI. ROS Other: All systems not noted in ROS Statement are negative. Constitutional: Denies: fever, chills Respiratory: Denies: cough, dyspnea Cardiovascular: Denies: chest pain, palpitations, edema Gastrointestinal: Denies: abdominal pain, vomiting Genitourinary: Denies: dysuria, hematuria, testicular pain, testicular mass Musculoskeletal: Reports: myalgia. Denies: back pain, arthralgia Skin: Denies: rash Neurological: Denies: headache, weakness, numbness, paresthesias Past Medical History Past Medical History: Asthma, Diabetes Mellitus, Hyperlipidemia, Hypertension, Osteoarthritis (OA), Sleep Apnea/CPAP/BIPAP Additional Past Medical History / Comment(s): uses c-pap machine, constipation due to norco., states torn left rotator cuff., states constant pain all over, hx of agent orange exposure, ptsd(pt stated if he's sleeping call his name drom door". upper rt dental bridge,hx broken nose, had shingels vaccine-not sure of date. History of Any Multi-Drug Resistant Organisms: None Reported Past Surgical History: Joint Replacement Additional Past Surgical History / Comment(s): Nemesio total knees, lipoma removed, vasectomy, right rotator cuff., cataracts.lt carpal tunnel release, lt thumb sx, "holes in nemesio retina repaired Past Anesthesia/Blood Transfusion Reactions: No Reported Reaction Past Psychological History: PTSD Smoking Status: Never smoker Past Alcohol Use History: None Reported Past Drug Use History: None Reported - Past Family History Father Family Medical History: Cancer Additional Family Medical History / Comment(s): asbestos exposure General Exam Limitations: no limitations General appearance: alert, in no apparent distress Head exam: Present: atraumatic, normocephalic Eye exam: Present: normal appearance Respiratory exam: Present: normal lung sounds bilaterally. Absent: respiratory distress, wheezes, rales, rhonchi, stridor Cardiovascular Exam: Present: regular rate, normal rhythm, normal heart sounds. Absent: systolic murmur, diastolic murmur, rubs, gallop GI/Abdominal exam: Present: soft. Absent: distended, tenderness, guarding Extremities exam: Present: normal inspection, normal capillary refill. Absent: pedal edema, calf tenderness Back exam: Present: normal inspection. Absent: CVA tenderness (R), CVA tenderness (L), paraspinal tenderness, vertebral tenderness Neurological exam: Present: alert, reflexes normal. Absent: motor sensory deficit Skin exam: Present: warm, dry, intact, normal color. Absent: rash Course Vital Signs 10/22/20 02:22 Temperature 97.6 F Pulse Rate 103 H Respiratory 20 Rate Blood Pressure 171/80 O2 Sat by Pulse 99 Oximetry Medical Decision Making - Medical Decision Making Further discussion with the patient reveals that he does have appointment scheduled with Dr. Ceja for November 05. Patient will be given small number of [place] to use. He states that he has been breaking them into quarter tablets to manage his pain. Review of the patient's MAPS report shows patient's history is consistent. I did explain that I would not be providing any more of this narcotic medication in the future. Disposition Clinical Impression: Medication refill, Chronic pain Disposition: HOME SELF-CARE Condition: Good Prescriptions: HYDROcodone/APAP 10-325MG [[place] 10-325] 1 tab PO Q4HR PRN 4 Days #15 tab PRN Reason: Pain Is patient prescribed a controlled substance at d/c from ED?: Yes When asked, does pt state using other controlled substances?: No If prescribed controlled substance>3 days was MAPS reviewed?: Yes If opioid is for acute pain is fill amount 7 days or less?: Yes If Rx opioid, was Start Talking consent form obtained?: Yes Referrals: [facility],Clinic [Primary Care Provider] - 1-2 days
== END 2020-10-22 03:14 | disposition home or self-care (01) ==
LOC: EC 02:21
DX: Z76.0 Encounter for issue of repeat prescription (principal); G89.29 Other chronic pain; I10 Essential (primary) hypertension; G47.30 Sleep apnea, unspecified; E11.9 Type 2 diabetes mellitus without complications; E78.5 Hyperlipidemia, unspecified; Z79.899 Other long term (current) drug therapy; Z79.4 Long term (current) use of insulin; Z88.8 Allergy status to other drugs, medicaments and biological substances; Z91.018 Allergy to other foods; Z99.89 Dependence on other enabling machines and devices; Z96.60 Presence of unspecified orthopedic joint implant
CPT/HCPCS: 99281

== ENCOUNTER 2020-11-14 05:24 | Emergency (ER) | payer OTHER ==
[2020-11-14 05:31] VITALS: BP 172/90; PULSE 105; RESP 22; TEMP 97.9
[2020-11-14] MEDS ORDERED: HYDROcodone/APAP 10-325MG 1 EACH TAB PO ONE (06:21)
--- NOTE | 2020-11-14 06:25 | ED ---
Recheck HPI - General Chief Complaint: Recheck/Abnormal Lab/Rx Stated Complaint: Pain all over Time Seen by Provider: 11/14/20 05:37 Source: patient Mode of arrival: ambulatory Limitations: no limitations - History of Present Illness Initial Comments: Patient is a 75-year-old male, with history of chronic pain, presenting to the emergency department requesting a refill his pain medication. Patient states he has been taking [place]'s for many years and recently the [facility] wanted to try to cut him off of them. Patient states he has been going through sleep apnea testing and recently has scheduled for an EMG of his upper and lower extremities. Patient states he thought he could make it until Tuesday until he seen his physician however his pain is increasingly becoming worse and that is making him hard to walk. He denies any fever or chills, no bowel or bladder incontinence. Patient states this feels like his normal chronic pain been inte nsified since he has not had his pain medication in many weeks. He denies any chest pain or shortness of breath. He has no further complaints at this time. Upon arrival to the ER, his vitals are stable. - Related Data Home Medications Medication Instructions Recorded Confirmed HYDROcodone/APAP 10-325MG [[place] 1 tab PO 5XD PRN 05/03/16 08/16/18 10-325] Insulin Glargine [Lantus] 40 unit INJ QAM 05/03/16 08/16/18 glipiZIDE [Glucotrol] 10 mg PO BID 05/03/16 08/16/18 hydroCHLOROthiazide [Hydrodiuril] 25 mg PO DAILY 05/03/16 08/16/18 lisinopriL 40 mg PO DAILY 05/03/16 08/16/18 metFORMIN HCL [Glucophage] 1,000 mg PO BID 05/03/16 08/16/18 Atorvastatin [Lipitor] 20 mg PO HS 05/15/18 08/16/18 Multivitamins, Thera [Multivitamin 1 tab PO DAILY 05/15/18 08/16/18 (formulary)] Pseudoephedrine HCl [Sudafed] 120 mg PO BID PRN 05/15/18 08/16/18 traZODone HCL 150 mg PO HS 07/31/18 08/16/18 Nasal Sprays (Unknown Names) 1 spray EA NOSTRIL DIRECTED PRN 08/10/18 08/16/18 Previous Rx's Medication Instructions Recorded Omeprazole [PriLOSEC] 40 mg PO AC-BRKT #14 capsule. 08/01/18 HYDROcodone/APAP 10-325MG [[place] 1 tab PO Q6H PRN #15 tab 09/27/20 10-325] HYDROcodone/APAP 10-325MG [[place] 1 tab PO Q4HR PRN 4 Days #15 tab 10/22/20 10-325] HYDROcodone/APAP 10-325MG [[place] 1 tab PO Q6H PRN #12 tab 11/14/20 10-325] Allergies Allergy/AdvReac Type Severity Reaction Status Date / Time lovastatin Allergy Muscle Verified 11/14/20 05:31 Weakness sesame oil Allergy Anaphylaxis Verified 11/14/20 05:31 simvastatin Allergy Muscle Verified 11/14/20 05:31 Weakness Review of Systems ROS Statement: Those systems with pertinent positive or pertinent negative responses have been documented in the HPI. ROS Other: All systems not noted in ROS Statement are negative. Past Medical History Past Medical History: Asthma, Diabetes Mellitus, Hyperlipidemia, Hypertension, Osteoarthritis (OA), Sleep Apnea/CPAP/BIPAP Additional Past Medical History / Comment(s): uses c-pap machine, constipation due to norco., states torn left rotator cuff., states constant pain all over, hx of agent orange exposure, ptsd(pt stated if he's sleeping call his name drom door". upper rt dental bridge,hx broken nose, had shingels vaccine-not sure of date. History of Any Multi-Drug Resistant Organisms: None Reported Past Surgical History: Joint Replacement Additional Past Surgical History / Comment(s): Nemesio total knees, lipoma removed, vasectomy, right rotator cuff., cataracts.lt carpal tunnel release, lt thumb sx, "holes in nemesio retina repaired Past Anesthesia/Blood Transfusion Reactions: No Reported Reaction Past Psychological History: PTSD Smoking Status: Never smoker Past Alcohol Use History: None Reported Past Drug Use History: None Reported - Past Family History Father Family Medical History: Cancer Additional Family Medical History / Comment(s): asbestos exposure General Exam - General Exam Comments Initial Comments: GENERAL: Patient is well-developed and well-nourished. Patient is nontoxic and in no acute distress. HEAD: Atraumatic, normocephalic. EYES: Pupils equal round and reactive to light, extraocular movements intact, sclera anicteric, conjunctiva are normal. Eyelids were unremarkable. ENT: TMs normal, nares patent, oropharynx clear without exudates. Moist mucous membranes. NECK: Normal range of motion, supple without lymphadenopathy or JVD. LUNGS: Unlabored respirations. Breath sounds clear to auscultation bilaterally and equal. No wheezes rales or rhonchi. HEART: Regular rate and rhythm without murmurs, rubs or gallops. ABDOMEN: Soft, nontender, normoactive bowel sounds. No guarding, no rebound. No masses appreciated. : Deferred MUSCULOSKELETAL: Normal extremities with adequate strength and normal range of motion, no pitting or edema. No clubbing or cyanosis. NEUROLOGICAL: Patient is alert and oriented x 3. Motor and sensory are also intact. Cranial nerves II through XII grossly intact. Symmetrical smile. Normal speech, normal gait. PSYCH: Normal mood, normal affect. SKIN: Warm, Dry, normal turgor, no rashes or lesions noted. Limitations: no limitations Course Vital Signs 11/14/20 05:26 Temperature 97.9 F Pulse Rate 105 H Respiratory 22 Rate Blood Pressure 172/90 O2 Sat by Pulse 99 Oximetry Medical Decision Making - Medical Decision Making Patient is a 75-year-old male with history of chronic pain presenting requesting a refill of his pain medicine. His exam is unremarkable, no acute neuro deficits. He denies any recent injuries or trauma. He doesn't appointment for Tuesday and Tuesday for EMG of his lower and upper extremity's. He also has appointment with neurologist in a few weeks. Patient will be given one tablet [place] here in the ER and I will refill a short prescription for him. He is stable for discharge. He is in agreement with this plan of care. He is to follow-up with his regular doctors for his chronic pain. He is in agreement with this. Disposition Clinical Impression: Chronic pain Disposition: HOME SELF-CARE Condition: Stable Instructions (If sedation given, give patient instructions): Chronic Pain (ED) Additional Instructions: Please return to the Emergency Department if symptoms worsen or any other concerns. Please follow-up with your regular physicians for your chronic pain. Prescriptions: HYDROcodone/APAP 10-325MG [[place] 10-325] 1 tab PO Q6H PRN #12 tab PRN Reason: pain Is patient prescribed a controlled substance at d/c from ED?: Yes When asked, does pt state using other controlled substances?: No If prescribed controlled substance>3 days was MAPS reviewed?: Prescribed <3 Days If opioid is for acute pain is fill amount 7 days or less?: Yes If Rx opioid, was Start Talking consent form obtained?: Yes Referrals: [facility],Clinic [Primary Care Provider] - 1-2 days
== END 2020-11-14 06:35 | disposition home or self-care (01) ==
LOC: EC 05:24
DX: Z76.0 Encounter for issue of repeat prescription (principal); G89.29 Other chronic pain; F43.10 Post-traumatic stress disorder, unspecified; E11.9 Type 2 diabetes mellitus without complications; E78.5 Hyperlipidemia, unspecified; I10 Essential (primary) hypertension; G47.33 Obstructive sleep apnea (adult) (pediatric); Z79.4 Long term (current) use of insulin; Z79.899 Other long term (current) drug therapy; Z99.89 Dependence on other enabling machines and devices; Z88.8 Allergy status to other drugs, medicaments and biological substances; Z91.048 Other nonmedicinal substance allergy status; Z98.42 Cataract extraction status, left eye; Z98.41 Cataract extraction status, right eye; Z96.653 Presence of artificial knee joint, bilateral
CPT/HCPCS: 99283

== ENCOUNTER 2020-11-18 08:58 | Emergency (ER) | payer OTHER ==
[2020-11-18 09:04] VITALS: BP 146/91; PULSE 69; RESP 18; TEMP 97.6
[2020-11-18] MEDS ORDERED: HYDROcodone/APAP 10-325MG 1 EACH TAB PO ONE (09:25)
--- NOTE | 2020-11-18 09:27 | ED ---
General Adult HPI - General Chief complaint: Recheck/Abnormal Lab/Rx Stated complaint: med refill Time Seen by Provider: 11/18/20 09:06 Source: patient, RN notes reviewed Mode of arrival: ambulatory Limitations: no limitations - History of Present Illness Initial comments: Patient is a pleasant 75-year-old male presenting to the emergency Department with complaints of generalized pain. Patient states is chronic. Patient states he is supposed to be on [place] tens. Patient states the primary care physician will not give this to him. Patient does have an appointment to see a neurologist, Dr. Ceja later today. Patient states he has had a difficult time getting in to see him. Patient states usually he gets his pain medications from the emergency department. He states normally when he comes her they give him one and right a prescription for 12 additional ones. - Related Data Home Medications Medication Instructions Recorded Confirmed HYDROcodone/APAP 10-325MG [[place] 1 tab PO 5XD PRN 05/03/16 08/16/18 10-325] Insulin Glargine [Lantus] 40 unit INJ QAM 05/03/16 08/16/18 glipiZIDE [Glucotrol] 10 mg PO BID 05/03/16 08/16/18 hydroCHLOROthiazide [Hydrodiuril] 25 mg PO DAILY 05/03/16 08/16/18 lisinopriL 40 mg PO DAILY 05/03/16 08/16/18 metFORMIN HCL [Glucophage] 1,000 mg PO BID 05/03/16 08/16/18 Atorvastatin [Lipitor] 20 mg PO HS 05/15/18 08/16/18 Multivitamins, Thera [Multivitamin 1 tab PO DAILY 05/15/18 08/16/18 (formulary)] Pseudoephedrine HCl [Sudafed] 120 mg PO BID PRN 05/15/18 08/16/18 traZODone HCL 150 mg PO HS 07/31/18 08/16/18 Nasal Sprays (Unknown Names) 1 spray EA NOSTRIL DIRECTED PRN 08/10/18 08/16/18 Previous Rx's Medication Instructions Recorded Omeprazole [PriLOSEC] 40 mg PO ERNESTINE-SALAZARKFSLeroy #14 capsule. 08/01/18 HYDROcodone/APAP 10-325MG [[place] 1 tab PO Q6H PRN #15 tab 09/27/20 10-325] HYDROcodone/APAP 10-325MG [[place] 1 tab PO Q4HR PRN 4 Days #15 tab 10/22/20 10-325] HYDROcodone/APAP 10-325MG [[place] 1 tab PO Q6H PRN #12 tab 11/14/20 10-325] Allergies Allergy/AdvReac Type Severity Reaction Status Date / Time lovastatin Allergy Muscle Verified 11/18/20 09:05 Weakness sesame oil Allergy Anaphylaxis Verified 11/18/20 09:05 simvastatin Allergy Muscle Verified 11/18/20 09:05 Weakness Review of Systems ROS Statement: Those systems with pertinent positive or pertinent negative responses have been documented in the HPI. ROS Other: All systems not noted in ROS Statement are negative. Constitutional: Denies: fever Eyes: Denies: eye pain ENT: Denies: ear pain Respiratory: Denies: cough Cardiovascular: Denies: chest pain Endocrine: Denies: fatigue Gastrointestinal: Denies: abdominal pain Genitourinary: Denies: dysuria Musculoskeletal: Reports: as per HPI (Chronic diffuse Gen. pain, unchanged) Skin: Denies: rash Neurological: Denies: weakness Past Medical History Past Medical History: Asthma, Diabetes Mellitus, Hyperlipidemia, Hypertension, Osteoarthritis (OA), Sleep Apnea/CPAP/BIPAP Additional Past Medical History / Comment(s): uses c-pap machine, constipation due to norco., states torn left rotator cuff., states constant pain all over, hx of agent orange exposure, ptsd(pt stated if he's sleeping call his name drom door". upper rt dental bridge,hx broken nose, had shingels vaccine-not sure of date. History of Any Multi-Drug Resistant Organisms: None Reported Past Surgical History: Joint Replacement Additional Past Surgical History / Comment(s): Kiko total knees, lipoma removed, vasectomy, right rotator cuff., cataracts.lt carpal tunnel release, lt thumb sx, "holes in kiko retina repaired Past Anesthesia/Blood Transfusion Reactions: No Reported Reaction Past Psychological History: PTSD Smoking Status: Never smoker Past Alcohol Use History: None Reported Past Drug Use History: None Reported - Past Family History Father Family Medical History: Cancer Additional Family Medical History / Comment(s): asbestos exposure General Exam Limitations: no limitations General appearance: alert, in no apparent distress Eye exam: Present: normal appearance Respiratory exam: Present: normal lung sounds bilaterally Cardiovascular Exam: Present: regular rate, normal rhythm GI/Abdominal exam: Present: soft. Absent: tenderness Extremities exam: Present: normal inspection Neurological exam: Present: alert Psychiatric exam: Present: normal affect, normal mood Course Vital Signs 11/18/20 08:59 Temperature 97.6 F Pulse Rate 69 Respiratory 18 Rate Blood Pressure 146/91 O2 Sat by Pulse 99 Oximetry Medical Decision Making - Medical Decision Making Patient was offered starter pack for Tylenol with Codeine or Ultram however refuses. Disposition Clinical Impression: Chronic pain Disposition: HOME SELF-CARE Condition: Stable Instructions (If sedation given, give patient instructions): Chronic Pain (ED) Additional Instructions: Please follow-up today with Dr. Ceja as planned. Please also follow-up with primary care physician in the next day or 2 for recheck. Return for fevers, weakness, change or worsening symptoms or other concerns. Is patient prescribed a controlled substance at d/c from ED?: No Referrals: [facility],Clinic [Primary Care Provider] - 1-2 days Time of Disposition: 09:27
== END 2020-11-18 09:39 | disposition home or self-care (01) ==
LOC: EC 08:58
DX: G89.29 Other chronic pain (principal); Z76.0 Encounter for issue of repeat prescription; J45.909 Unspecified asthma, uncomplicated; E11.9 Type 2 diabetes mellitus without complications; I10 Essential (primary) hypertension; E78.5 Hyperlipidemia, unspecified; G47.30 Sleep apnea, unspecified; F43.10 Post-traumatic stress disorder, unspecified; Z79.899 Other long term (current) drug therapy; Z79.4 Long term (current) use of insulin; Z88.8 Allergy status to other drugs, medicaments and biological substances; Z91.018 Allergy to other foods; Z99.89 Dependence on other enabling machines and devices
CPT/HCPCS: 99283

== ENCOUNTER 2020-12-03 05:27 | Emergency (ER) | payer OTHER ==
[2020-12-03 05:36] VITALS: BP 180/90; PULSE 89; RESP 17; TEMP 98
[2020-12-03] MEDS ORDERED: HYDROcodone/APAP 10-325MG 1 EACH TAB PO ONE (05:52)
--- NOTE | 2020-12-03 05:53 | ED ---
Recheck HPI - General Chief Complaint: Recheck/Abnormal Lab/Rx Stated Complaint: Pain in legs/back Time Seen by Provider: 12/03/20 05:52 Source: patient, RN notes reviewed, old records reviewed Mode of arrival: wheelchair Limitations: no limitations - History of Present Illness Initial Comments: This is a 75-year-old male to the ER for evaluation today. He presents today for chronic pain severe pain and need for pain control, out of pain medication. Patient has no other trauma no new injury. Patient does state that he has follow-up this week with pain control physician MD Complaint: medication refill request -: days(s) Returns Today for: persistent/worsening pain related to initial visit Symptoms Since Prior Visit: worsening pain Associated Symptoms: none Treatments Prior to Arrival: Given Pain Meds on - Related Data Home Medications Medication Instructions Recorded Confirmed HYDROcodone/APAP 10-325MG [[place] 1 tab PO 5XD PRN 05/03/16 08/16/18 10-325] Insulin Glargine [Lantus] 40 unit INJ QAM 05/03/16 08/16/18 glipiZIDE [Glucotrol] 10 mg PO BID 05/03/16 08/16/18 hydroCHLOROthiazide [Hydrodiuril] 25 mg PO DAILY 05/03/16 08/16/18 lisinopriL 40 mg PO DAILY 05/03/16 08/16/18 metFORMIN HCL [Glucophage] 1,000 mg PO BID 05/03/16 08/16/18 Atorvastatin [Lipitor] 20 mg PO HS 05/15/18 08/16/18 Multivitamins, Thera [Multivitamin 1 tab PO DAILY 05/15/18 08/16/18 (formulary)] Pseudoephedrine HCl [Sudafed] 120 mg PO BID PRN 05/15/18 08/16/18 traZODone HCL 150 mg PO HS 07/31/18 08/16/18 Nasal Sprays (Unknown Names) 1 spray EA NOSTRIL DIRECTED PRN 08/10/18 08/16/18 Previous Rx's Medication Instructions Recorded Omeprazole [PriLOSEC] 40 mg PO AC-BRKFSLeroy #14 capsule. 08/01/18 HYDROcodone/APAP 10-325MG [[place] 1 tab PO Q4HR PRN 4 Days #15 tab 10/22/20 10-325] HYDROcodone/APAP 10-325MG [[place] 1 tab PO Q6H PRN #12 tab 11/14/20 10-325] HYDROcodone/APAP 10-325MG [[place] 1 tab PO Q6H PRN #15 tab 12/03/20 10-325] Allergies Allergy/AdvReac Type Severity Reaction Status Date / Time lovastatin Allergy Muscle Verified 12/03/20 05:36 Weakness sesame oil Allergy Anaphylaxis Verified 12/03/20 05:36 simvastatin Allergy Muscle Verified 12/03/20 05:36 Weakness Review of Systems ROS Statement: Those systems with pertinent positive or pertinent negative responses have been documented in the HPI. ROS Other: All systems not noted in ROS Statement are negative. Past Medical History Past Medical History: Asthma, Diabetes Mellitus, Hyperlipidemia, Hypertension, Osteoarthritis (OA), Sleep Apnea/CPAP/BIPAP Additional Past Medical History / Comment(s): uses c-pap machine, constipation due to norco., states torn left rotator cuff., states constant pain all over, hx of agent orange exposure, ptsd(pt stated if he's sleeping call his name drom door". upper rt dental bridge,hx broken nose, had shingels vaccine-not sure of date. History of Any Multi-Drug Resistant Organisms: None Reported Past Surgical History: Joint Replacement Additional Past Surgical History / Comment(s): Nemesio total knees, lipoma removed, vasectomy, right rotator cuff., cataracts.lt carpal tunnel release, lt thumb sx, "holes in nemesio retina repaired Past Anesthesia/Blood Transfusion Reactions: No Reported Reaction Past Psychological History: PTSD Smoking Status: Never smoker Past Alcohol Use History: None Reported Past Drug Use History: None Reported - Past Family History Father Family Medical History: Cancer Additional Family Medical History / Comment(s): asbestos exposure General Exam Limitations: no limitations General appearance: alert, in no apparent distress Head exam: Present: atraumatic, normocephalic, normal inspection Eye exam: Present: normal appearance, PERRL, EOMI. Absent: scleral icterus, conjunctival injection, periorbital swelling ENT exam: Present: normal exam, mucous membranes moist Neck exam: Present: normal inspection. Absent: tenderness, meningismus, lymphadenopathy Respiratory exam: Present: normal lung sounds bilaterally. Absent: respiratory distress, wheezes, rales, rhonchi, stridor Cardiovascular Exam: Present: regular rate, normal rhythm, normal heart sounds. Absent: systolic murmur, diastolic murmur, rubs, gallop, clicks GI/Abdominal exam: Present: soft, normal bowel sounds. Absent: distended, tenderness, guarding, rebound, rigid Extremities exam: Present: normal inspection, full ROM, normal capillary refill. Absent: tenderness, pedal edema, joint swelling, calf tenderness Back exam: Present: normal inspection Neurological exam: Present: alert, oriented X3, CN II-XII intact Psychiatric exam: Present: normal affect, normal mood Skin exam: Present: warm, dry, intact, normal color. Absent: rash Course Vital Signs 12/03/20 05:32 Temperature 98 F Pulse Rate 89 Respiratory 17 Rate Blood Pressure 180/90 O2 Sat by Pulse 98 Oximetry - Reevaluation(s) Reevaluation #1: Medical record is reviewed Patient symptoms are improved here in the ER Patient informed results and questions have been answered Patient feels good for discharge home Medical Decision Making - Medical Decision Making 75 male given pain control here in the ER. Patient will follow-up with pain physician this week Disposition Clinical Impression: Encounter for medication refill Disposition: HOME SELF-CARE Condition: Good Instructions (If sedation given, give patient instructions): Chronic Pain (ED) Prescriptions: HYDROcodone/APAP 10-325MG [[place] 10-325] 1 tab PO Q6H PRN #15 tab PRN Reason: Pain Is patient prescribed a controlled substance at d/c from ED?: Yes When asked, does pt state using other controlled substances?: No If prescribed controlled substance>3 days was MAPS reviewed?: Prescribed <3 Days If opioid is for acute pain is fill amount 7 days or less?: Yes If Rx opioid, was Start Talking consent form obtained?: Yes Referrals: [facility],Clinic [Primary Care Provider] - 1-2 days
== END 2020-12-03 06:08 | disposition home or self-care (01) ==
LOC: EC 05:27
DX: G89.29 Other chronic pain (principal); Z76.0 Encounter for issue of repeat prescription; M79.606 Pain in leg, unspecified; M54.9 Dorsalgia, unspecified; E78.5 Hyperlipidemia, unspecified; M19.90 Unspecified osteoarthritis, unspecified site; J45.909 Unspecified asthma, uncomplicated; I10 Essential (primary) hypertension; E11.36 Type 2 diabetes mellitus with diabetic cataract; F43.10 Post-traumatic stress disorder, unspecified; Z79.4 Long term (current) use of insulin; Z79.891 Long term (current) use of opiate analgesic; Z79.899 Other long term (current) drug therapy; Z88.8 Allergy status to other drugs, medicaments and biological substances; Z91.048 Other nonmedicinal substance allergy status; Z99.89 Dependence on other enabling machines and devices; Z96.653 Presence of artificial knee joint, bilateral; Z77.098 Contact with and (suspected) exposure to other hazardous, chiefly nonmedicinal, chemicals; Z98.49 Cataract extraction status, unspecified eye; Z98.52 Vasectomy status; Z80.9 Family history of malignant neoplasm, unspecified
CPT/HCPCS: 99283

== ENCOUNTER → 2021-06-29 | Outpatient (CLI) | payer OTHER ==
[2021-06-29 11:27] LABS: HCT 49.2 % (39.6-50.0); HGB 16.6 g/dL (13.0-17.0); MCH 31.8 pg (27.0-32.0); MCHC 33.7 g/dL (32.0-37.0); MCV 94.3 fL (80.0-97.0); Mean Platelet Volume 10.6 fL (9.5-12.2); Platelet Count 213 X 10*3/uL (140-440); RBC 5.22 X 10*6/uL (4.40-5.60); RDW 12.2 % (11.5-14.5); WBC 6.67 X 10*3/uL (4.50-10.00)
[2021-06-29 12:18] LABS: ALT 27 U/L (10-49); AST 27 U/L (14-35); Albumin/Globulin Ratio 1.55 (1.60-3.17); Alkaline Phosphatase 52 U/L (41-126); Calcium 9.7 mg/dL (8.7-10.3); Chloride 95 mmol/L (96-109); Creatine Kinase 216 U/L (35-257); Globulin 2.9 g/dL (1.6-3.3); Glucose 217 mg/dL (70-110); Non-African American GFR(CKD) 31.9 (60.0-200.0); Potassium 5.1 mmol/L (3.5-5.5); Sodium 136 mmol/L (135-145); Total Bilirubin 0.6 mg/dL (0.2-1.2); Total Protein 7.4 g/dL (6.2-8.2)
[2021-06-29 13:23] LABS: Folate, Serum >24.0 ng/mL
[2021-06-29 16:01] LABS: Hemoglobin A1C 6.2 % (4.0-6.0)
[2021-07-01 06:03] LABS: Vit B1(Thiamine) 68 ug/L (38-122)
[2021-07-01 06:13] LABS: Vitamin E (Alpha Tocopherol) 973 ug/dL (500-1800)
== END | disposition home or self-care (01) ==
LOC: LABWHC1 07:02
PROVIDERS: ATTEND Psychiatry & Neurology Pain Medicine
DX: G90.50 Complex regional pain syndrome I, unspecified (principal); G89.4 Chronic pain syndrome; Z79.899 Other long term (current) drug therapy
CPT/HCPCS: 36415; 80053; 82306; 82550; 82607; 82746; 83036; 83090; 83519; 83735; 84207; 84425; 84439; 84443; 84446; 84481; 84590; 84591; 84597; 85027

== ENCOUNTER 2021-08-07 04:53 | Emergency (ER) | payer OTHER ==
[2021-08-07 05:04] VITALS: PULSE 66
--- NOTE | 2021-08-07 05:15 | ED ---
Recheck HPI - General Chief Complaint: Recheck/Abnormal Lab/Rx Stated Complaint: Wants pain med refill Time Seen by Provider: 08/07/21 05:07 Source: patient, family Mode of arrival: ambulatory Limitations: no limitations - Related Data Home Medications Medication Instructions Recorded Confirmed HYDROcodone/APAP 10-325MG [[place] 1 tab PO 5XD PRN 05/03/16 08/16/18 10-325] Insulin Glargine [Lantus] 40 unit INJ QAM 05/03/16 08/16/18 glipiZIDE [Glucotrol] 10 mg PO BID 05/03/16 08/16/18 hydroCHLOROthiazide [Hydrodiuril] 25 mg PO DAILY 05/03/16 08/16/18 lisinopriL 40 mg PO DAILY 05/03/16 08/16/18 metFORMIN HCL [Glucophage] 1,000 mg PO BID 05/03/16 08/16/18 Atorvastatin [Lipitor] 20 mg PO HS 05/15/18 08/16/18 Multivitamins, Thera [Multivitamin 1 tab PO DAILY 05/15/18 08/16/18 (formulary)] Pseudoephedrine HCl [Sudafed] 120 mg PO BID PRN 05/15/18 08/16/18 traZODone HCL 150 mg PO HS 07/31/18 08/16/18 Nasal Sprays (Unknown Names) 1 spray EA NOSTRIL DIRECTED PRN 08/10/18 08/16/18 Previous Rx's Medication Instructions Recorded Omeprazole [PriLOSEC] 40 mg PO ERNESTINE-SALAZARKFSLeroy #14 capsule. 08/01/18 HYDROcodone/APAP 10-325MG [[place] 1 tab PO Q4HR PRN 4 Days #15 tab 10/22/20 10-325] HYDROcodone/APAP 10-325MG [[place] 1 tab PO Q6H PRN #12 tab 11/14/20 10-325] HYDROcodone/APAP 10-325MG [[place] 1 tab PO Q6H PRN #15 tab 12/03/20 10-325] HYDROcodone/APAP 10-325MG [[place] 1 tab PO Q8HR PRN #90 tab 08/07/21 10-325] Allergies Allergy/AdvReac Type Severity Reaction Status Date / Time lovastatin Allergy Muscle Verified 08/07/21 05:03 Weakness sesame oil Allergy Anaphylaxis Verified 08/07/21 05:03 simvastatin Allergy Muscle Verified 08/07/21 05:03 Weakness Review of Systems ROS Statement: Those systems with pertinent positive or pertinent negative responses have been documented in the HPI. ROS Other: All systems not noted in ROS Statement are negative. Past Medical History Past Medical History: Asthma, Diabetes Mellitus, Hyperlipidemia, Hypertension, Osteoarthritis (OA), Sleep Apnea/CPAP/BIPAP Additional Past Medical History / Comment(s): uses c-pap machine, constipation due to norco., states torn left rotator cuff., states constant pain all over, hx of agent orange exposure, ptsd(pt stated if he's sleeping call his name drom door". upper rt dental bridge,hx broken nose, had shingels vaccine-not sure of date. History of Any Multi-Drug Resistant Organisms: None Reported Past Surgical History: Joint Replacement Additional Past Surgical History / Comment(s): Kiko total knees, lipoma removed, vasectomy, right rotator cuff., cataracts.lt carpal tunnel release, lt thumb sx, "holes in kiko retina repaired Past Anesthesia/Blood Transfusion Reactions: No Reported Reaction Past Psychological History: PTSD Smoking Status: Never smoker Past Alcohol Use History: None Reported Past Drug Use History: None Reported - Past Family History Father Family Medical History: Cancer Additional Family Medical History / Comment(s): asbestos exposure General Exam Limitations: no limitations Course Vital Signs 08/07/21 04:58 Temperature 98 F Pulse Rate 66 Respiratory 22 Rate Blood Pressure 161/90 O2 Sat by Pulse 97 Oximetry Disposition Clinical Impression: Encounter for medication refill, Opioid dependence Disposition: HOME SELF-CARE Condition: Good Instructions (If sedation given, give patient instructions): Medicine Refill (ED) Prescriptions: HYDROcodone/APAP 10-325MG [[place] 10-325] 1 tab PO Q8HR PRN #90 tab PRN Reason: Pain Is patient prescribed a controlled substance at d/c from ED?: Yes When asked, does pt state using other controlled substances?: No If prescribed controlled substance>3 days was MAPS reviewed?: Yes If opioid is for acute pain is fill amount 7 days or less?: No If Rx opioid, was Start Talking consent form obtained?: Yes Referrals: None,Stated [Primary Care Provider] - 1-2 days
[2021-08-07] MEDS ORDERED: HYDROcodone/APAP 10-325MG 1 EACH TAB PO ONE (06:20)
[2021-08-07 06:33] VITALS: BP 141/80; RESP 18; TEMP 98.6
== END 2021-08-07 06:53 | disposition home or self-care (01) ==
LOC: EC 04:53
DX: Z76.0 Encounter for issue of repeat prescription (principal); F11.20 Opioid dependence, uncomplicated; J45.909 Unspecified asthma, uncomplicated; E11.9 Type 2 diabetes mellitus without complications; E78.5 Hyperlipidemia, unspecified; I10 Essential (primary) hypertension; M19.90 Unspecified osteoarthritis, unspecified site; F43.12 Post-traumatic stress disorder, chronic; Z79.4 Long term (current) use of insulin; Z88.1 Allergy status to other antibiotic agents; Z96.653 Presence of artificial knee joint, bilateral
CPT/HCPCS: 99281

== ENCOUNTER 2021-09-03 05:18 | Emergency (ER) | payer OTHER ==
[2021-09-03 05:28] VITALS: BP 136/76; PULSE 87; RESP 22; TEMP 98.5
--- NOTE | 2021-09-03 06:22 | ED ---
General Adult HPI - General Chief complaint: Recheck/Abnormal Lab/Rx Stated complaint: Pain all over Time Seen by Provider: 09/03/21 06:10 Source: patient, RN notes reviewed Mode of arrival: wheelchair Limitations: no limitations - History of Present Illness Initial comments: 76-year-old male presents emergency Department chief complaint of pain, out of his pain meds. Patient states that he had a pain contract with Dr. Ceja states that he was in the hospital for COVID-19 states that he was given a prescription and has not had a refill because he felt another prescription and broke his contract. Patient was in the emergency Department and was given prescription for 90 [place] one month ago. Patient states he is out. Patient was a pain all over this is chronic pain this is not new pain. - Related Data Home Medications Medication Instructions Recorded Confirmed HYDROcodone/APAP 10-325MG [[place] 1 tab PO 5XD PRN 05/03/16 08/16/18 10-325] Insulin Glargine [Lantus] 40 unit INJ QAM 05/03/16 08/16/18 glipiZIDE [Glucotrol] 10 mg PO BID 05/03/16 08/16/18 hydroCHLOROthiazide [Hydrodiuril] 25 mg PO DAILY 05/03/16 08/16/18 lisinopriL 40 mg PO DAILY 05/03/16 08/16/18 metFORMIN HCL [Glucophage] 1,000 mg PO BID 05/03/16 08/16/18 Atorvastatin [Lipitor] 20 mg PO HS 05/15/18 08/16/18 Multivitamins, Thera [Multivitamin 1 tab PO DAILY 05/15/18 08/16/18 (formulary)] Pseudoephedrine HCl [Sudafed] 120 mg PO BID PRN 05/15/18 08/16/18 traZODone HCL 150 mg PO HS 07/31/18 08/16/18 Nasal Sprays (Unknown Names) 1 spray EA NOSTRIL DIRECTED PRN 08/10/18 08/16/18 Previous Rx's Medication Instructions Recorded Omeprazole [PriLOSEC] 40 mg PO AC-BRKFSLeroy #14 capsule. 08/01/18 HYDROcodone/APAP 10-325MG [[place] 1 tab PO Q4HR PRN 4 Days #15 tab 10/22/20 10-325] HYDROcodone/APAP 10-325MG [[place] 1 tab PO Q6H PRN #12 tab 11/14/20 10-325] HYDROcodone/APAP 10-325MG [[place] 1 tab PO Q6H PRN #15 tab 12/03/20 10-325] HYDROcodone/APAP 10-325MG [[place] 1 tab PO Q8HR PRN #90 tab 08/07/21 10-325] Allergies Allergy/AdvReac Type Severity Reaction Status Date / Time lovastatin Allergy Muscle Verified 09/03/21 05:28 Weakness sesame oil Allergy Anaphylaxis Verified 09/03/21 05:28 simvastatin Allergy Muscle Verified 09/03/21 05:28 Weakness Review of Systems ROS Statement: Those systems with pertinent positive or pertinent negative responses have been documented in the HPI. ROS Other: All systems not noted in ROS Statement are negative. Past Medical History Past Medical History: Asthma, Diabetes Mellitus, Hyperlipidemia, Hypertension, Osteoarthritis (OA), Sleep Apnea/CPAP/BIPAP Additional Past Medical History / Comment(s): uses c-pap machine, constipation d ue to norco., states torn left rotator cuff., states constant pain all over, hx of agent orange exposure, ptsd(pt stated if he's sleeping call his name drom door". upper rt dental bridge,hx broken nose, had shingels vaccine-not sure of date. History of Any Multi-Drug Resistant Organisms: None Reported Past Surgical History: Joint Replacement Additional Past Surgical History / Comment(s): Nemesio total knees, lipoma removed, vasectomy, right rotator cuff., cataracts.lt carpal tunnel release, lt thumb sx, "holes in nemesio retina repaired Past Anesthesia/Blood Transfusion Reactions: No Reported Reaction Past Psychological History: PTSD Smoking Status: Never smoker Past Alcohol Use History: None Reported Past Drug Use History: None Reported - Past Family History Father Family Medical History: Cancer Additional Family Medical History / Comment(s): asbestos exposure General Exam Limitations: no limitations General appearance: alert, in no apparent distress Head exam: Present: atraumatic, normocephalic, normal inspection Neck exam: Present: normal inspection. Absent: tenderness, meningismus, lymphadenopathy Respiratory exam: Present: normal lung sounds bilaterally. Absent: respiratory distress, wheezes, rales, rhonchi, stridor Cardiovascular Exam: Present: regular rate, normal rhythm, normal heart sounds. Absent: systolic murmur, diastolic murmur, rubs, gallop, clicks Course Vital Signs 09/03/21 05:23 Temperature 98.5 F Pulse Rate 87 Respiratory 22 Rate Blood Pressure 136/76 O2 Sat by Pulse 100 Oximetry Medical Decision Making - Medical Decision Making Patient advised that he'll receive 12 [place] he was also advised that he will not receive another prescription for pain and some emergency department as he needs to follow up with a primary care physician for chronic pain disorder. Disposition Clinical Impression: Opioid dependence, Encounter for medication refill, Chronic pain Disposition: HOME SELF-CARE Condition: Stable Additional Instructions: You need to follow-up with primary care physician or pain management physician for a new prescription of pain meds.Please return to the Emergency Department if symptoms worsen or any other concerns. Is patient prescribed a controlled substance at d/c from ED?: No Referrals: None,Stated [Primary Care Provider] - 1-2 days Time of Disposition: 06:21
== END 2021-09-03 06:38 | disposition home or self-care (01) ==
LOC: EC 05:18
DX: Z76.0 Encounter for issue of repeat prescription (principal); F11.90 Opioid use, unspecified, uncomplicated; M79.18 Myalgia, other site; G89.29 Other chronic pain; J45.909 Unspecified asthma, uncomplicated; E11.9 Type 2 diabetes mellitus without complications; E78.5 Hyperlipidemia, unspecified; I10 Essential (primary) hypertension; M19.90 Unspecified osteoarthritis, unspecified site; F43.12 Post-traumatic stress disorder, chronic; Z79.4 Long term (current) use of insulin; Z79.84 Long term (current) use of oral hypoglycemic drugs; Z96.653 Presence of artificial knee joint, bilateral
CPT/HCPCS: 99283

== ENCOUNTER 2021-09-21 04:41 | Emergency (ER) | payer OTHER ==
[2021-09-21 04:47] VITALS: BP 165/98; PULSE 63; RESP 20; TEMP 97.7
--- NOTE | 2021-09-21 04:54 | ED ---
Recheck HPI - General Chief Complaint: Recheck/Abnormal Lab/Rx Stated Complaint: Pain Control Time Seen by Provider: 09/21/21 04:42 Source: patient, RN notes reviewed, old records reviewed Mode of arrival: wheelchair Limitations: no limitations - History of Present Illness Initial Comments: This is a 76-year-old male who presents to the ER today for evaluation of medication refill. Patient has history of chronic pain is unable to have a medications. Currently. Patient has no new symptoms just here for refill MD Complaint: medication refill request -: unknown Returns Today for: request for prescription, persistent/worsening pain related to initial visit Symptoms Since Prior Visit: worsening pain Associated Symptoms: none Treatments Prior to Arrival: Given Pain Meds on - Related Data Home Medications Medication Instructions Recorded Confirmed HYDROcodone/APAP 10-325MG [[place] 1 tab PO 5XD PRN 05/03/16 08/16/18 10-325] Insulin Glargine [Lantus] 40 unit INJ QAM 05/03/16 08/16/18 glipiZIDE [Glucotrol] 10 mg PO BID 05/03/16 08/16/18 hydroCHLOROthiazide [Hydrodiuril] 25 mg PO DAILY 05/03/16 08/16/18 lisinopriL 40 mg PO DAILY 05/03/16 08/16/18 metFORMIN HCL [Glucophage] 1,000 mg PO BID 05/03/16 08/16/18 Atorvastatin [Lipitor] 20 mg PO HS 05/15/18 08/16/18 Multivitamins, Thera [Multivitamin 1 tab PO DAILY 05/15/18 08/16/18 (formulary)] Pseudoephedrine HCl [Sudafed] 120 mg PO BID PRN 05/15/18 08/16/18 traZODone HCL 150 mg PO HS 07/31/18 08/16/18 Nasal Sprays (Unknown Names) 1 spray EA NOSTRIL DIRECTED PRN 08/10/18 Previous Rx's Medication Instructions Recorded Omeprazole [PriLOSEC] 40 mg PO AC-BRKFST #14 capsule. 08/01/18 HYDROcodone/APAP 10-325MG [[place] 1 tab PO Q4HR PRN 4 Days #15 tab 10/22/20 10-325] HYDROcodone/APAP 10-325MG [[place] 1 tab PO Q6H PRN #15 tab 12/03/20 10-325] HYDROcodone/APAP 10-325MG [[place] 1 tab PO Q6H PRN #12 tab 09/03/21 10-325] HYDROcodone/APAP 10-325MG [[place] 1 tab PO Q8HR PRN #90 tab 09/21/21 10-325] Allergies Allergy/AdvReac Type Severity Reaction Status Date / Time lovastatin Allergy Muscle Verified 09/21/21 04:47 Weakness sesame oil Allergy Anaphylaxis Verified 09/21/21 04:47 simvastatin Allergy Muscle Verified 09/21/21 04:47 Weakness Review of Systems ROS Statement: Those systems with pertinent positive or pertinent negative responses have been documented in the HPI. ROS Other: All systems not noted in ROS Statement are negative. Past Medical History Past Medical History: Asthma, Diabetes Mellitus, Hyperlipidemia, Hypertension, Osteoarthritis (OA), Pulmonary Embolus (PE), Sleep Apnea/CPAP/BIPAP Additional Past Medical History / Comment(s): uses c-pap machine, constipation due to norco., states torn left rotator cuff., states constant pain all over, hx of agent orange exposure, ptsd(pt stated if he's sleeping call his name drom door". upper rt dental bridge,hx broken nose, had shingels vaccine-not sure of date. History of Any Multi-Drug Resistant Organisms: None Reported Past Surgical History: Joint Replacement Additional Past Surgical History / Comment(s): Nemesio total knees, lipoma removed, vasectomy, right rotator cuff., cataracts.lt carpal tunnel release, lt thumb sx, "holes in nemesio retina repaired Past Anesthesia/Blood Transfusion Reactions: No Reported Reaction Past Psychological History: PTSD Smoking Status: Never smoker Past Alcohol Use History: None Reported Past Drug Use History: None Reported - Past Family History Father Family Medical History: Cancer Additional Family Medical History / Comment(s): asbestos exposure General Exam Limitations: no limitations General appearance: alert, in no apparent distress Head exam: Present: atraumatic, normocephalic, normal inspection Eye exam: Present: normal appearance, PERRL, EOMI. Absent: scleral icterus, conjunctival injection, periorbital swelling ENT exam: Present: normal exam, mucous membranes moist Neck exam: Present: normal inspection. Absent: tenderness, meningismus, lymphadenopathy Respiratory exam: Present: normal lung sounds bilaterally. Absent: respiratory distress, wheezes, rales, rhonchi, stridor Cardiovascular Exam: Present: regular rate, normal rhythm, normal heart sounds. Absent: systolic murmur, diastolic murmur, rubs, gallop, clicks GI/Abdominal exam: Present: soft, normal bowel sounds. Absent: distended, tenderness, guarding, rebound, rigid Extremities exam: Present: normal inspection, full ROM, normal capillary refill. Absent: tenderness, pedal edema, joint swelling, calf tenderness Back exam: Present: normal inspection Neurological exam: Present: alert, oriented X3, CN II-XII intact Psychiatric exam: Present: normal affect, normal mood Skin exam: Present: warm, dry, intact, normal color. Absent: rash Course Vital Signs 09/21/21 04:45 Temperature 97.7 F Pulse Rate 63 Respiratory 20 Rate Blood Pressure 165/98 O2 Sat by Pulse 99 Oximetry - Reevaluation(s) Reevaluation #1: Medical record is reviewed Patient symptoms are significantly improved here in the ER Patient informed results and questions answered Medical Decision Making - Medical Decision Making 76 male to the emergency department with chronic pain. Patient given pain control refill here in the ER and can be discharged home Disposition Clinical Impression: Chronic pain, Encounter for medication refill Disposition: HOME SELF-CARE Condition: Good Instructions (If sedation given, give patient instructions): Medicine Refill (ED) Prescriptions: HYDROcodone/APAP 10-325MG [[place] 10-325] 1 tab PO Q8HR PRN #90 tab PRN Reason: Pain Is patient prescribed a controlled substance at d/c from ED?: Yes When asked, does pt state using other controlled substances?: No If prescribed controlled substance>3 days was MAPS reviewed?: Yes If opioid is for acute pain is fill amount 7 days or less?: No If Rx opioid, was Start Talking consent form obtained?: Yes Referrals: None,Stated [Primary Care Provider] - 1-2 days
[2021-09-21] MEDS ORDERED: HYDROcodone/APAP 10-325MG 1 EACH TAB PO ONE (04:56)
== END 2021-09-21 05:05 | disposition home or self-care (01) ==
LOC: EC 04:41
DX: G89.29 Other chronic pain (principal); Z76.0 Encounter for issue of repeat prescription; J45.909 Unspecified asthma, uncomplicated; E11.9 Type 2 diabetes mellitus without complications; E78.5 Hyperlipidemia, unspecified; I10 Essential (primary) hypertension; M19.90 Unspecified osteoarthritis, unspecified site; F43.10 Post-traumatic stress disorder, unspecified; Z79.84 Long term (current) use of oral hypoglycemic drugs; Z79.4 Long term (current) use of insulin; Z79.899 Other long term (current) drug therapy
CPT/HCPCS: 99281

== ENCOUNTER → 2021-10-12 | Outpatient (CLI) | payer OTHER ==
--- NOTE | 2021-10-12 12:59 | US ---
EXAMINATION TYPE: US kidneys/renal and bladder DATE OF EXAM: 10/12/2021 COMPARISON: US 08/01/2018 CLINICAL HISTORY: R94.4 Abnormal results of kidney function studies. EXAM MEASUREMENTS: Right Kidney: 11.5 X 5.8 X 5.8 cm Left Kidney: 13.1 X 5.9 X 5.8 cm Right Kidney: cortical cyst measures 1.6 x 1.7 x 1.6 cm Left Kidney: lateral upper cyst measures 2.9 x 1.8 x 2.0 cm Bladder: wnl There is no evidence for hydronephrosis at this point in time. No nephrolithiasis is seen. No solid masses are identified. The urinary bladder is anechoic. IMPRESSION: Correlate for medical renal disease. Renal cystic changes noted.
== END | disposition home or self-care (01) ==
LOC: RADUSWWP 11:57
PROVIDERS: ATTEND Family Medicine
DX: R94.4 Abnormal results of kidney function studies (principal); N28.1 Cyst of kidney, acquired
CPT/HCPCS: 76770

== ENCOUNTER 2021-11-19 06:55 | Emergency (ER) | payer OTHER ==
[2021-11-19 07:10] VITALS: BP 166/106; PULSE 99; RESP 20; TEMP 97.8
[2021-11-19] MEDS ORDERED: HYDROcodone/APAP 10-325MG 1 EACH TAB PO ONE (07:29)
--- NOTE | 2021-11-19 07:30 | ED ---
General Adult HPI - General Chief complaint: Recheck/Abnormal Lab/Rx Stated complaint: Chronic Pain Time Seen by Provider: 11/19/21 07:12 Source: patient, RN notes reviewed, old records reviewed Mode of arrival: ambulatory - History of Present Illness Initial comments: 76-year-old male who presents for vacation refill. Patient is out of his [place] prescription. He takes 46 [place] 10 mg daily. He has had issues with pain management physician does not currently have available prescription. He denies any new injury. No chest pain or abdominal pain. No fever. No vomiting. He has multiple musculoskeletal pain complaints which are all chronic in nature. - Related Data Home Medications Medication Instructions Recorded Confirmed HYDROcodone/APAP 10-325MG [[place] 1 tab PO 5XD PRN 05/03/16 08/16/18 10-325] Insulin Glargine [Lantus] 40 unit INJ QAM 05/03/16 08/16/18 glipiZIDE [Glucotrol] 10 mg PO BID 05/03/16 08/16/18 hydroCHLOROthiazide [Hydrodiuril] 25 mg PO DAILY 05/03/16 08/16/18 lisinopriL 40 mg PO DAILY 05/03/16 08/16/18 metFORMIN HCL [Glucophage] 1,000 mg PO BID 05/03/16 08/16/18 Atorvastatin [Lipitor] 20 mg PO HS 05/15/18 08/16/18 Multivitamins, Thera [Multivitamin 1 tab PO DAILY 05/15/18 08/16/18 (formulary)] Pseudoephedrine HCl [Sudafed] 120 mg PO BID PRN 05/15/18 08/16/18 traZODone HCL 150 mg PO HS 07/31/18 08/16/18 Nasal Sprays (Unknown Names) 1 spray EA NOSTRIL DIRECTED PRN 08/10/18 08/16/18 Previous Rx's Medication Instructions Recorded Omeprazole [PriLOSEC] 40 mg PO AC-BRKFST #14 capsule. 08/01/18 HYDROcodone/APAP 10-325MG [[place] 1 tab PO Q4HR PRN 4 Days #15 tab 10/22/20 10-325] HYDROcodone/APAP 10-325MG [[place] 1 tab PO Q6H PRN #15 tab 12/03/20 10-325] HYDROcodone/APAP 10-325MG [[place] 1 tab PO Q6H PRN #12 tab 09/03/21 10-325] HYDROcodone/APAP 10-325MG [[place] 1 tab PO Q8HR PRN #90 tab 09/21/21 10-325] HYDROcodone/APAP 10-325MG [[place] 1 tab PO TID 3 Days #9 tab 11/19/21 10-325] Allergies Allergy/AdvReac Type Severity Reaction Status Date / Time lovastatin Allergy Muscle Verified 11/19/21 07:10 Weakness sesame oil Allergy Anaphylaxis Verified 11/19/21 07:10 simvastatin Allergy Muscle Verified 11/19/21 07:10 Weakness Review of Systems ROS Statement: Those systems with pertinent positive or pertinent negative responses have been documented in the HPI. ROS Other: All systems not noted in ROS Statement are negative. Past Medical History Past Medical History: Asthma, Diabetes Mellitus, Hyperlipidemia, Hypertension, Osteoarthritis (OA), Pulmonary Embolus (PE), Sleep Apnea/CPAP/BIPAP Additional Past Medical History / Comment(s): uses c-pap machine, constipation due to norco., states torn left rotator cuff., states constant pain all over, hx of agent orange exposure, ptsd(pt stated if he's sleeping call his name drom door". upper rt dental bridge,hx broken nose, had shingels vaccine-not sure of date. History of Any Multi-Drug Resistant Organisms: None Reported Past Surgical History: Joint Replacement Additional Past Surgical History / Comment(s): Nemesio total knees, lipoma removed, vasectomy, right rotator cuff., cataracts.lt carpal tunnel release, lt thumb sx, "holes in nemesio retina repaired Past Anesthesia/Blood Transfusion Reactions: No Reported Reaction Past Psychological History: PTSD Smoking Status: Former smoker Past Alcohol Use History: None Reported Past Drug Use History: None Reported - Past Family History Father Family Medical History: Cancer Additional Family Medical History / Comment(s): asbestos exposure General Exam General appearance: alert, in no apparent distress Head exam: Present: atraumatic, normocephalic Eye exam: Present: normal appearance, PERRL, EOMI ENT exam: Present: normal exam Neck exam: Present: normal inspection. Absent: tenderness, meningismus Respiratory exam: Present: normal lung sounds bilaterally. Absent: respiratory distress, wheezes Cardiovascular Exam: Present: regular rate, normal rhythm GI/Abdominal exam: Present: soft. Absent: distended, tenderness, guarding Extremities exam: Present: normal inspection, normal capillary refill. Absent: pedal edema Neurological exam: Present: alert, oriented X3, CN II-XII intact. Absent: motor sensory deficit Psychiatric exam: Present: normal affect, normal mood Skin exam: Present: warm, dry, intact. Absent: cyanosis, diaphoretic Course Vital Signs 11/19/21 07:04 Temperature 97.8 F Pulse Rate 99 Respiratory 20 Rate Blood Pressure 166/106 O2 Sat by Pulse 97 Oximetry Medical Decision Making - Medical Decision Making 76-year-old male with chronic pain. Patient prescribed 3 days of 3 tablets daily. 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 Disposition Clinical Impression: Encounter for medication refill Disposition: HOME SELF-CARE Condition: Fair Instructions (If sedation given, give patient instructions): Chronic Pain (ED), Medicine Refill (ED) Additional Instructions: Please follow up with your primary care physician. Prescriptions: HYDROcodone/APAP 10-325MG [[place] 10-325] 1 tab PO TID 3 Days #9 tab Is patient prescribed a controlled substance at d/c from ED?: No Referrals: Nonstaff,Physician [Primary Care Provider] - 1-2 days Time of Disposition: 07:30
== END 2021-11-19 07:42 | disposition home or self-care (01) ==
LOC: EC 06:55
DX: Z76.0 Encounter for issue of repeat prescription (principal); J45.909 Unspecified asthma, uncomplicated; E11.9 Type 2 diabetes mellitus without complications; E78.5 Hyperlipidemia, unspecified; M19.90 Unspecified osteoarthritis, unspecified site; F43.10 Post-traumatic stress disorder, unspecified; I10 Essential (primary) hypertension; Z86.711 Personal history of pulmonary embolism; Z87.891 Personal history of nicotine dependence; Z79.4 Long term (current) use of insulin
CPT/HCPCS: 99291

== ENCOUNTER 2021-11-23 10:25 | Emergency (ER) | payer OTHER ==
[2021-11-23 10:30] VITALS: BP 186/88; PULSE 94; RESP 18; TEMP 97.5
[2021-11-23] MEDS ORDERED: HYDROcodone/APAP 5-325MG 1 EACH TAB PO STA (10:52)
--- NOTE | 2021-11-23 10:55 | ED ---
General Adult HPI - General Chief complaint: Recheck/Abnormal Lab/Rx Stated complaint: med refill Time Seen by Provider: 11/23/21 10:37 Source: patient, RN notes reviewed Mode of arrival: wheelchair Limitations: no limitations - History of Present Illness Initial comments: Patient is a pleasant 76-year-old male presenting to the emergency department requesting pain medication. Patient is chronic pain. Patient states he normally takes for hydrocodone daily. Patient states he has been doing this for years. Patient had a dispute with his pain clinic. Patient has been cut off from his medications. Patient primary care physician does not prescribe narcotics. Patient is unable to see his old pain clinic because they do not want to see him either. Patient's pain is chronic and diffuse. No specific area. No new pain. Patient recently was in the emergency Department with similar problems. - Related Data Home Medications Medication Instructions Recorded Confirmed HYDROcodone/APAP 10-325MG [[place] 1 tab PO 5XD PRN 05/03/16 08/16/18 10-325] Insulin Glargine [Lantus] 40 unit INJ QAM 05/03/16 08/16/18 glipiZIDE [Glucotrol] 10 mg PO BID 05/03/16 08/16/18 hydroCHLOROthiazide [Hydrodiuril] 25 mg PO DAILY 05/03/16 08/16/18 lisinopriL 40 mg PO DAILY 05/03/16 08/16/18 metFORMIN HCL [Glucophage] 1,000 mg PO BID 05/03/16 08/16/18 Atorvastatin [Lipitor] 20 mg PO HS 05/15/18 08/16/18 Multivitamins, Thera [Multivitamin 1 tab PO DAILY 05/15/18 08/16/18 (formulary)] Pseudoephedrine HCl [Sudafed] 120 mg PO BID PRN 05/15/18 08/16/18 traZODone HCL 150 mg PO HS 07/31/18 08/16/18 Nasal Sprays (Unknown Names) 1 spray EA NOSTRIL DIRECTED PRN 08/10/18 08/16/18 Previous Rx's Medication Instructions Recorded Omeprazole [PriLOSEC] 40 mg PO ERNESTINE-HEIDY #14 capsule. 08/01/18 HYDROcodone/APAP 10-325MG [[place] 1 tab PO Q4HR PRN 4 Days #15 tab 01/06/21 10-325] HYDROcodone/APAP 10-325MG [[place] 1 tab PO Q6H PRN #15 tab 12/03/20 10-325] HYDROcodone/APAP 10-325MG [[place] 1 tab PO Q6H PRN #12 tab 09/03/21 10-325] HYDROcodone/APAP 10-325MG [[place] 1 tab PO Q8HR PRN #90 tab 09/21/21 10-325] HYDROcodone/APAP 10-325MG [[place] 1 tab PO TID 3 Days #9 tab 11/19/21 10-325] Allergies Allergy/AdvReac Type Severity Reaction Status Date / Time lovastatin Allergy Muscle Verified 11/23/21 10:30 Weakness sesame oil Allergy Anaphylaxis Verified 11/23/21 10:30 simvastatin Allergy Muscle Verified 11/23/21 10:30 Weakness Review of Systems ROS Statement: Those systems with pertinent positive or pertinent negative responses have been documented in the HPI. ROS Other: All systems not noted in ROS Statement are negative. Constitutional: Denies: fever Eyes: Denies: eye pain ENT: Denies: ear pain Respiratory: Denies: cough Cardiovascular: Denies: chest pain Endocrine: Denies: fatigue Gastrointestinal: Denies: vomiting Genitourinary: Denies: dysuria Musculoskeletal: Reports: as per HPI Skin: Denies: rash Neurological: Denies: weakness Past Medical History Past Medical History: Asthma, Diabetes Mellitus, Hyperlipidemia, Hypertension, Osteoarthritis (OA), Pulmonary Embolus (PE), Sleep Apnea/CPAP/BIPAP Additional Past Medical History / Comment(s): uses c-pap machine, constipation due to norco., states torn left rotator cuff., states constant pain all over, hx of agent orange exposure, ptsd(pt stated if he's sleeping call his name drom door". upper rt dental bridge,hx broken nose, had shingels vaccine-not sure of date. History of Any Multi-Drug Resistant Organisms: None Reported Past Surgical History: Joint Replacement Additional Past Surgical History / Comment(s): [place] total knees, lipoma removed, vasectomy, right rotator cuff., cataracts.lt carpal tunnel release, lt thumb sx, "holes in [place] retina repaired Past Anesthesia/Blood Transfusion Reactions: No Reported Reaction Past Psychological History: PTSD Smoking Status: Former smoker Past Alcohol Use History: None Reported Past Drug Use History: None Reported - Past Family History Father Family Medical History: Cancer Additional Family Medical History / Comment(s): asbestos exposure General Exam Limitations: no limitations General appearance: alert, in no apparent distress Head exam: Present: normocephalic Eye exam: Present: normal appearance Neck exam: Present: normal inspection Respiratory exam: Present: normal lung sounds bilaterally Cardiovascular Exam: Present: regular rate, normal rhythm GI/Abdominal exam: Present: soft. Absent: tenderness Extremities exam: Present: normal inspection Neurological exam: Present: alert Psychiatric exam: Present: normal affect, normal mood Skin exam: Present: normal color Course Vital Signs 11/23/21 10:26 Temperature 97.5 F L Pulse Rate 94 Respiratory 18 Rate Blood Pressure 186/88 O2 Sat by Pulse 99 Oximetry Medical Decision Making - Medical Decision Making Patient requesting specifically hydrocodone. Patient requests prescription. Patient is made aware of recent visit and being notified at that time of limitation for prescribing narcotics. Patient will be given 2 [place] at this time. Patient is advised follow-up and given additional pain clinic reference. Disposition Clinical Impression: Chronic pain Disposition: HOME SELF-CARE Condition: Stable Instructions (If sedation given, give patient instructions): Chronic Pain (ED) Additional Instructions: Please follow-up with your primary care physician in the next day or 2 for recheck. Also follow-up with pain clinic, number provided. Return for change or worsening symptoms, uncontrolled heart rate or blood pressure, vomiting, or any other concerns. Is patient prescribed a controlled substance at d/c from ED?: No Referrals: Diamond Trejo MD [Primary Care Provider] - 1-2 days Saúl Locke MD [STAFF PHYSICIAN] - 1-2 days Time of Disposition: 10:55
== END 2021-11-23 11:20 | disposition home or self-care (01) ==
LOC: EC 10:25
DX: Z76.0 Encounter for issue of repeat prescription (principal); G89.29 Other chronic pain; J45.909 Unspecified asthma, uncomplicated; E11.9 Type 2 diabetes mellitus without complications; E78.5 Hyperlipidemia, unspecified; I10 Essential (primary) hypertension; M19.90 Unspecified osteoarthritis, unspecified site; F43.10 Post-traumatic stress disorder, unspecified; Z79.4 Long term (current) use of insulin; Z79.84 Long term (current) use of oral hypoglycemic drugs; Z86.711 Personal history of pulmonary embolism; Z96.653 Presence of artificial knee joint, bilateral; Z87.891 Personal history of nicotine dependence
CPT/HCPCS: 99281

== ENCOUNTER 2022-01-01 05:41 | Emergency (ER) | payer OTHER ==
--- NOTE | 2022-01-01 07:57 | ED ---
General Adult HPI - General Chief complaint: Recheck/Abnormal Lab/Rx Stated complaint: Wants med refill Time Seen by Provider: 01/01/22 07:00 Source: patient, RN notes reviewed, old records reviewed Mode of arrival: ambulatory Limitations: no limitations - History of Present Illness Initial comments: This is a 76-year-old male presents emergency Department stating he has chronic pain and he takes 5 like the day. He can't get anyone to fill his Vicodin prescription so he wants me to feels like a prescription. Patient denies any new pain or any new problems. Patient states chronic pain in his knees and shoulders he states all over the place. Patient has no specific area pain that he wants looked at or fixed he just wants his prescription filled. Patient states if I don't give him pain medicines come back 20 times in the next month and he does not have the patient on because [employer] insurance pays for it. - Related Data Home Medications Medication Instructions Recorded Confirmed HYDROcodone/APAP 10-325MG [[place] 1 tab PO TID PRN 11/23/21 11/23/21 10-325] Allergies Allergy/AdvReac Type Severity Reaction Status Date / Time lovastatin Allergy Muscle Verified 01/01/22 05:49 Weakness sesame oil Allergy Anaphylaxis Verified 01/01/22 05:49 simvastatin Allergy Muscle Verified 01/01/22 05:49 Weakness Review of Systems ROS Statement: Those systems with pertinent positive or pertinent negative responses have been documented in the HPI. ROS Other: All systems not noted in ROS Statement are negative. Past Medical History Past Medical History: Asthma, Diabetes Mellitus, Hyperlipidemia, Hypertension, Osteoarthritis (OA), Pulmonary Embolus (PE), Sleep Apnea/CPAP/BIPAP Additional Past Medical History / Comment(s): uses c-pap machine, constipation due to norco., states torn left rotator cuff., states constant pain all over, hx of agent orange exposure, ptsd(pt stated if he's sleeping call his name drom door". upper rt dental bridge,hx broken nose, had shingels vaccine-not sure of date. History of Any Multi-Drug Resistant Organisms: None Reported Past Surgical History: Joint Replacement Additional Past Surgical History / Comment(s): Nemesio total knees, lipoma removed, vasectomy, right rotator cuff., cataracts.lt carpal tunnel release, lt thumb sx, "holes in nemesio retina repaired Past Anesthesia/Blood Transfusion Reactions: No Reported Reaction Past Psychological History: PTSD Smoking Status: Former smoker Past Alcohol Use History: None Reported Past Drug Use History: None Reported - Past Family History Father Family Medical History: Cancer Additional Family Medical History / Comment(s): asbestos exposure General Exam - General Exam Comments Initial Comments: GENERAL Patient is well-developed and well-nourished. Patient is in mild distress SKIN Unremarkable NEURO The patient is alert and oriented 3. Cranial nerves II through XII are grossly intact. PYSCH Patient has normal interpersonal interactions. Limitations: no limitations Course Vital Signs 01/01/22 05:47 Temperature 98.4 F Pulse Rate 111 H Respiratory 20 Rate Blood Pressure 160/111 O2 Sat by Pulse 98 Oximetry Disposition Clinical Impression: Medication refill Disposition: HOME SELF-CARE Condition: Good Is patient prescribed a controlled substance at d/c from ED?: No Referrals: Diamond Trejo MD [Primary Care Provider] - 1-2 days Time of Disposition: 07:57
[2022-01-01 08:20] VITALS: BP 168/102; PULSE 92; RESP 18; TEMP 97.9
== END 2022-01-01 08:20 | disposition home or self-care (01) ==
LOC: EC 05:41
DX: Z76.0 Encounter for issue of repeat prescription (principal); G89.29 Other chronic pain; J45.909 Unspecified asthma, uncomplicated; E11.9 Type 2 diabetes mellitus without complications; E78.5 Hyperlipidemia, unspecified; I10 Essential (primary) hypertension; M19.90 Unspecified osteoarthritis, unspecified site; F43.10 Post-traumatic stress disorder, unspecified; Z86.711 Personal history of pulmonary embolism; Z96.653 Presence of artificial knee joint, bilateral; Z98.52 Vasectomy status; Z87.891 Personal history of nicotine dependence
CPT/HCPCS: 99281

== ENCOUNTER 2022-01-12 15:01 | Inpatient (IN) | payer OTHER, MEDICARE ==
[2022-01-12 16:06] LABS: Basophils % (A) 0 %; Eosinophils # (A) 0.1 k/uL (0-0.7); Eosinophils % (A) 2 %; HCT 47.2 % (39.0-53.0); HGB 15.8 gm/dL (13.0-17.5); Lymphocytes # (A) 2.1 k/uL (1.0-4.8); Lymphocytes % (A) 26 %; MCHC 33.4 g/dL (31.0-37.0); MCV 95.7 fL (80.0-100.0); Mean Platelet Volume 7.5; Monocytes # (A) 0.4 k/uL (0-1.0); Monocytes % (A) 5 %; Neutrophils # (A) 5.2 k/uL (1.3-7.7); Neutrophils % (A) 65 %; Platelet Count 226 k/uL (150-450); RBC 4.94 m/uL (4.30-5.90); RDW 13.4 % (11.5-15.5)
--- NOTE | 2022-01-12 16:08 | XR ---
EXAMINATION TYPE: XR chest 2V DATE OF EXAM: 01/12/2022 COMPARISON: Chest x-ray 07/31/2018 HISTORY: Difficulty breathing TECHNIQUE: Frontal and lateral views of the chest are obtained. FINDINGS: There is some persistent nodularity towards the right costophrenic angle level, no pleural effusion, or pneumothorax seen. The cardiac silhouette size is within normal limits. There are over lying leads. The osseous structures are intact. IMPRESSION: Stable basilar nodularity as described. No acute cardiopulmonary disease is evident..
[2022-01-12 16:14] LABS: Albumin 4.5 g/dL (3.5-5.0); Calcium 9.3 mg/dL (8.4-10.2); Potassium 4.3 mmol/L (3.5-5.1); Total Bilirubin 0.8 mg/dL (0.2-1.3); Total Protein 7.7 g/dL (6.3-8.2)
[2022-01-12 16:22] LABS: INR 1.1 (<1.2); Partial Thromboplastin Time 23.5 sec (22.0-30.0); Prothrombin Time 11.5 sec (9.0-12.0)
--- NOTE | 2022-01-12 16:30 | ED ---
SOB HPI - General Chief Complaint: Shortness of Breath Stated Complaint: WANG Time Seen by Provider: 01/12/22 15:32 Source: patient Mode of arrival: ambulatory - History of Present Illness Initial Comments: Prince is a 76 yo M with extensive past medical history most significant for pulmonary embolism which developed in June 2021 with the patient had COVID- 19. He was hospitalized at [facility] at that time. Patient was discharged home on L Mellisa reports he's been compliant with that medication. In addition the patient is on chronic narcotics for chronic pain. Patient reports he takes Vicodin 4-6 times daily. He states he's been out for 2 days. Patient reports he's been feeling short of breath and fatigued for a couple of days but that coupled with his chronic joint pain made unbearable so he came to ER today. Patient denies any chest pain him a says he does feel like his heart races when he walks and he can't catch his breath. - Related Data Home Medications Medication Instructions Recorded Confirmed HYDROcodone/APAP 10-325MG [[place] 1 tab PO Q4H PRN 11/23/21 01/12/22 10-325] Atorvastatin [Lipitor] 20 mg PO HS 01/12/22 01/12/22 Allergies Allergy/AdvReac Type Severity Reaction Status Date / Time lovastatin Allergy Muscle Verified 01/12/22 16:26 Weakness sesame oil Allergy Anaphylaxis Verified 01/12/22 16:26 simvastatin Allergy Muscle Verified 01/12/22 16:26 Weakness Review of Systems ROS Statement: Those systems with pertinent positive or pertinent negative responses have been documented in the HPI. ROS Other: All systems not noted in ROS Statement are negative. Past Medical History Past Medical History: Asthma, Diabetes Mellitus, Hyperlipidemia, Hypertension, Osteoarthritis (OA), Pulmonary Embolus (PE), Sleep Apnea/CPAP/BIPAP Additional Past Medical History / Comment(s): uses c-pap machine, constipation due to norco., states torn left rotator cuff., states constant pain all over, hx of agent orange exposure, ptsd(pt stated if he's sleeping call his name drom door". upper rt dental bridge,hx broken nose, had shingels vaccine-not sure of date. History of Any Multi-Drug Resistant Organisms: None Reported Past Surgical History: Joint Replacement Additional Past Surgical History / Comment(s): K[place] total knees, lipoma removed, vasectomy, right rotator cuff., cataracts.lt carpal tunnel release, lt thumb sx, "holes in kiko retina repaired Past Anesthesia/Blood Transfusion Reactions: No Reported Reaction Past Psychological History: PTSD Smoking Status: Former smoker Past Alcohol Use History: None Reported Past Drug Use History: None Reported - Past Family History Father Family Medical History: Cancer Additional Family Medical History / Comment(s): asbestos exposure General Exam - General Exam Comments Initial Comments: Physical Exam GENERAL: Patient is well-developed and well-nourished. Patient is nontoxic and well- hydrated and is in no distress. HENT: Normocephalic, Atraumatic. EYES: PERRL, EOMI PULMONARY: Unlabored respirations. No audible rales rhonchi or wheezing was noted. CARDIOVASCULAR: Irregularly irregular, tachycardic ABDOMEN: Soft and nontender with normal bowel sounds. SKIN: Skin is clear with no lesions or rashes and otherwise unremarkable. : Deferred NEUROLOGIC: Patient is alert and oriented x3. Moving all extremities spontaneously MUSCULOSKELETAL: Normal extremities with adequate strength and full range of motion. No lower extremity swelling or edema. No calf tenderness. PSYCHIATRIC: Normal psychiatric evaluation. Course Vital Signs 01/12/22 01/12/22 15:20 15:54 Temperature 96.9 F L Pulse Rate 72 109 H Respiratory 18 18 Rate Blood Pressure 184/105 163/114 O2 Sat by Pulse 99 99 Oximetry Medical Decision Making - Medical Decision Making She was seen and evaluated history is obtained from the patient 76-year-old gentleman reporting shortness of breath, arrival he was tachycardic with heart rates in the 1 teens, EKG was A. fib, upon review of medical record patient has no history of this. Patient's heart rate 108 when resting. By mouth metoprolol was ordered Labs were unremarkable Patient is on L Mellisa therefore anticoagulation not indicated at this time. Considering that this is a new onset atrial fibrillation with RVR patient will be admitted to the hospital for cardiology evaluation. Patient was agreeable to this. - Lab Data Result diagrams: 01/12/22 15:52 01/12/22 15:52 Lab Results 01/12/22 01/12/22 01/12/22 Range/Units 15:52 15:52 15:52 WBC 8.0 (3.8-10.6) k/uL RBC 4.94 (4.30-5.90) m/uL Hgb 15.8 (13.0-17.5) gm/dL Hct 47.2 (39.0-53.0) % MCV 95.7 (80.0-100.0) fL MCH 32.0 (25.0-35.0) pg MCHC 33.4 (31.0-37.0) g/dL RDW 13.4 (11.5-15.5) % Plt Count 226 (150-450) k/uL MPV 7.5 Neutrophils % 65 % Lymphocytes % 26 % Monocytes % 5 % Eosinophils % 2 % Basophils % 0 % Neutrophils # 5.2 (1.3-7.7) k/uL Lymphocytes # 2.1 (1.0-4.8) k/uL Monocytes # 0.4 (0-1.0) k/uL Eosinophils # 0.1 (0-0.7) k/uL Basophils # 0.0 (0-0.2) k/uL PT 11.5 (9.0-12.0) sec INR 1.1 (<1.2) APTT 23.5 (22.0-30.0) sec Sodium 137 (137-145) mmol/L Potassium 4.3 (3.5-5.1) mmol/L Chloride 100 (98-107) mmol/L Carbon Dioxide 26 (22-30) mmol/L Anion Gap 11 mmol/L BUN 15 (9-20) mg/dL Creatinine 1.14 (0.66-1.25) mg/dL Est GFR (CKD-EPI)AfAm 73 (>60 ml/min/1.73 sqM) Est GFR (CKD-EPI)NonAf 63 (>60 ml/min/1.73 sqM) Glucose 168 H (74-99) mg/dL Plasma Lactic Acid Juan Jose (0.7-2.0) mmol/L Calcium 9.3 (8.4-10.2) mg/dL Total Bilirubin 0.8 (0.2-1.3) mg/dL AST 22 (17-59) U/L ALT 19 (4-49) U/L Alkaline Phosphatase 60 (38-126) U/L Troponin I (0.000-0.034) ng/mL NT-Pro-B Natriuret Pep pg/mL Total Protein 7.7 (6.3-8.2) g/dL Albumin 4.5 (3.5-5.0) g/dL 01/12/22 01/12/22 01/12/22 Range/Units 15:52 15:52 15:52 WBC (3.8-10.6) k/uL RBC (4.30-5.90) m/uL Hgb (13.0-17.5) gm/dL Hct (39.0-53.0) % MCV (80.0-100.0) fL MCH (25.0-35.0) pg MCHC (31.0-37.0) g/dL RDW (11.5-15.5) % Plt Count (150-450) k/uL MPV Neutrophils % % Lymphocytes % % Monocytes % % Eosinophils % % Basophils % % Neutrophils # (1.3-7.7) k/uL Lymphocytes # (1.0-4.8) k/uL Monocytes # (0-1.0) k/uL Eosinophils # (0-0.7) k/uL Basophils # (0-0.2) k/uL PT (9.0-12.0) sec INR (<1.2) APTT (22.0-30.0) sec Sodium (137-145) mmol/L Potassium (3.5-5.1) mmol/L Chloride (98-107) mmol/L Carbon Dioxide (22-30) mmol/L Anion Gap mmol/L BUN (9-20) mg/dL Creatinine (0.66-1.25) mg/dL Est GFR (CKD-EPI)AfAm (>60 ml/min/1.73 sqM) Est GFR (CKD-EPI)NonAf (>60 ml/min/1.73 sqM) Glucose (74-99) mg/dL Plasma Lactic Acid Juan Jose 2.1 H* (0.7-2.0) mmol/L Calcium (8.4-10.2) mg/dL Total Bilirubin (0.2-1.3) mg/dL AST (17-59) U/L ALT (4-49) U/L Alkaline Phosphatase (38-126) U/L Troponin I 0.014 (0.000-0.034) ng/mL NT-Pro-B Natriuret Pep 3100 pg/mL Total Protein (6.3-8.2) g/dL Albumin (3.5-5.0) g/dL - EKG Data -: EKG Interpreted by Me EKG Comments: EKG was obtained due to tachycardia, EKG was obtained at 1533 rate is 116 rhythm is a narrow complex irregularly irregular rhythm consistent with a atrial fi brillation with RVR. There is no acute ST elevations or depressions no evidence of ischemia or infarction. Disposition Clinical Impression: New onset a-fib Disposition: ADMITTED IP TO THIS HOSP Condition: Serious Is patient prescribed a controlled substance at d/c from ED?: No Referrals: Diamond Trejo MD [Primary Care Provider] - 1-2 days
[2022-01-12] MEDS ORDERED: NALOXONE 0.4 MG/ML 1 ML VIAL IV PRN (16:51)
[2022-01-12] MEDS ORDERED: METOPROLOL SUCCINATE (ER) 25 MG TAB.ER.24H PO STA (16:52)
[2022-01-12] MEDS: HYDROcodone/APAP 10-325MG 1 EACH TAB PO PRN ×2 (17:02→21:02)
[2022-01-12] MEDS: APIXABAN 5 MG TAB PO SCH (19:53)
[2022-01-12] MEDS: METOPROLOL TARTRATE 25 MG TAB PO SCH (19:54)
[2022-01-13] MEDS: HYDROcodone/APAP 10-325MG 1 EACH TAB PO PRN ×6 (00:57→21:33)
[2022-01-13 06:38] LABS: Glucose,Whole Blood 173 mg/dL (75-99)
[2022-01-13] MEDS: METOPROLOL TARTRATE 25 MG TAB PO SCH (09:38)
[2022-01-13] MEDS: APIXABAN 5 MG TAB PO SCH ×2 (09:38→21:31)
[2022-01-13] MEDS: FAMOTIDINE 20 MG/2 ML VIAL IV SCH ×2 (09:39→21:31)
[2022-01-13] MEDS ORDERED: METOPROLOL TARTRATE 25 MG TAB PO STA (10:24)
--- NOTE | 2022-01-13 10:39 | P.CRDCN ---
History of Present Illness Consult date: 01/13/22 History of present illness: HISTORY OF PRESENT ILLNESS: This is a 76-year-old male with a past medical history significant for chronic back pain, pulmonary embolism on Eliquis and Covid in 2020. Patient does not follow with a research spec. We have been asked to see the patient in consultation for ARicardo olivarez with RVR. Patient examined at the bedside. patient presented to the emergency room with a chief complaint of shortness of breath. Patient denied having any chest pain or pressure. He denied having any palpitations. EKG completed in the emergency room revealed atrial fibrillation with RVR. The patient was started on oral metoprolol. Patient is already prescribed anticoagulation in the form of Eliquis. Patient states he has been compliant with his Eliquis at home. Patient remains in atrial fibrillation this morning with a heart rate ranging between 90-100. Patient denies any nicotine use. He denies any alcohol or drug use. * EKG reveals atrial fibrillation with RVR * Chest xray stable basilar nodularity as described. No acute cardiopulmonary disease evident. * Laboratory data: WBC 8.0. Hemoglobin 15.8. Platelet count 226. Sodium 137. Potassium 4.3. BUN 15. Creatinine 1.14. troponin negative 1. ProBNP 3100. * Current home cardiac medications include Eliquis 5mg BID and Lipitor 40mg at HS * Most recent echocardiogram obtained in 2018 revealed ejection fraction 55-60%, mild MR, trace TR REVIEW OF SYSTEMS: At the time of my exam: CONSTITUTIONAL: Denies fever or chills. HEENT: Denies blurred vision, vision changes, or eye pain. Denies hemoptysis CARDIOVASCULAR: Denies chest pain. Denies orthopnea. Denies PND. Denies palpitations RESPIRATORY: Denies shortness of breath. GASTROINTESTINAL: Denies abdominal pain. Denies nausea or vomiting. HEMATOLOGIC: Denies bleeding disorders. GENITOURINARY: Denies any blood in urine. SKIN: Denies pruitis. Denies rash. PHYSICAL EXAM: VITAL SIGNS: Reviewed. GENERAL: Well-developed in no acute distress. HEENT: Head is normocephalic. Pupils are equal, round. Sclerae anicteric. Mucous membranes of the mouth are moist. Neck supple. No JVD or thyromegaly LUNGS: Respirations even and unlabored. Lungs essentially clear to auscultation bilaterally. HEART: Irregular rate and rhythm. S1 and S2 heard. ABDOMEN: Soft. Nondistended. Nontender. EXTREMITIES: Normal range of motion. No clubbing or cyanosis. Peripheral puls es intact. No lower extremity edema NEUROLOGIC: Awake and alert. Oriented x 3. ASSESSMENT: Shortness of breath New-onset atrial fibrillation with RVR History of pulmonary embolism on Eliquis History of Covid 2020 Hyperlipidemia Chronic back pain PLAN: Obtain 2D echo to assess cardiac structure and function Check TSH Continue Eliquis Increase metoprolol to 50mg BID Continue telemetry monitoring Further recommendations pending patient course Nurse practitioner note has been reviewed by physician. Signing provider agrees with the documented findings, assessment, and plan of care. Past Medical History Past Medical History: Asthma, Diabetes Mellitus, Hyperlipidemia, Hypertension, Osteoarthritis (OA), Pulmonary Embolus (PE), Sleep Apnea/CPAP/BIPAP Additional Past Medical History / Comment(s): uses c-pap machine, constipation due to norco., states torn left rotator cuff., states constant pain all over, hx of agent orange exposure, ptsd(pt stated if he's sleeping call his name drom door". upper rt dental bridge,hx broken nose, had shingels vaccine-not sure of date. Tinnitus. History of Any Multi-Drug Resistant Organisms: None Reported Past Surgical History: Joint Replacement Additional Past Surgical History / Comment(s): Nemesio total knees, lipoma removed, vasectomy, right rotator cuff., cataracts.lt carpal tunnel release, lt thumb sx, "holes in nemesio retina repaired Past Anesthesia/Blood Transfusion Reactions: No Reported Reaction Past Psychological History: PTSD Smoking Status: Never smoker Past Alcohol Use History: None Reported Additional Past Alcohol Use History / Comment(s): started smoking at age 20 [place] 5pp[place] 2[place] and on till he quit 1997.quit drinking 2007 Past Drug Use History: None Reported - Past Family History Father Family Medical History: Cancer Additional Family Medical History / Comment(s): asbestos exposure Medications and Allergies Home Medications Medication Instructions Recorded Confirmed Type HYDROcodone/APAP 10-325MG [[place] 1 tab PO Q4H PRN 11/23/21 01/12/22 History 10-325] Apixaban [Eliquis] 5 mg PO BID 01/12/22 01/12/22 History Atorvastatin [Lipitor] 20 mg PO HS 01/12/22 01/12/22 History Allergies Allergy/AdvReac Type Severity Reaction Status Date / Time lovastatin Allergy Muscle Verified 01/12/22 16:26 Weakness sesame oil Allergy Anaphylaxis Verified 01/12/22 16:26 simvastatin Allergy Muscle Verified 01/12/22 16:26 Weakness Physical Exam Vitals: Vital Signs Temp Pulse Pulse Resp BP BP Pulse Ox 01/13/22 08:00 97.6 F 86 16 168/99 97 01/13/22 05:00 87 17 133/83 98 01/12/22 23:15 78 18 127/78 97 01/12/22 19:50 98 F 88 19 158/93 98 01/12/22 18:45 98.4 F 89 18 171/109 100 01/12/22 18:27 105 H 18 142/96 98 01/12/22 17:45 98 16 142/98 97 01/12/22 15:54 109 H 18 163/114 99 01/12/22 15:20 96.9 F L 72 18 184/105 99 Intake and Output 01/12/22 01/13/22 01/13/22 22:59 06:59 14:59 Other: # Voids 2 Weight 113.398 kg Results 01/12/22 15:52 01/12/22 15:52 Cardiac Enzymes 01/12/22 01/12/22 Range/Units 15:52 15:52 AST 22 (17-59) U/L Troponin I 0.014 (0.000-0.034) ng/mL Coagulation 01/12/22 Range/Units 15:52 PT 11.5 (9.0-12.0) sec APTT 23.5 (22.0-30.0) sec CBC 01/12/22 Range/Units 15:52 WBC 8.0 (3.8-10.6) k/uL RBC 4.94 (4.30-5.90) m/uL Hgb 15.8 (13.0-17.5) gm/dL Hct 47.2 (39.0-53.0) % Plt Count 226 (150-450) k/uL Comprehensive Metabolic Panel 01/12/22 Range/Units 15:52 Sodium 137 (137-145) mmol/L Potassium 4.3 (3.5-5.1) mmol/L Chloride 100 (98-107) mmol/L Carbon Dioxide 26 (22-30) mmol/L BUN 15 (9-20) mg/dL Creatinine 1.14 (0.66-1.25) mg/dL Glucose 168 H (74-99) mg/dL Calcium 9.3 (8.4-10.2) mg/dL AST 22 (17-59) U/L ALT 19 (4-49) U/L Alkaline Phosphatase 60 (38-126) U/L Total Protein 7.7 (6.3-8.2) g/dL Albumin 4.5 (3.5-5.0) g/dL Current Medications Generic Name Dose Route Start Last Admin Trade Name Freq PRN Reason Stop Dose Admin Hydrocodone Bitart/Acetaminophen 1 each 01/12/22 16:52 01/13/22 09:38 Hydrocodone/Apap 10-325mg 1 Each Tab PO 1 each Q4H PRN Administration Pain Apixaban 5 mg 01/12/22 21:00 01/13/22 09:38 Apixaban 5 Mg Tab PO 5 mg BID GUANAKITO Administration Protocol Famotidine 20 mg 01/13/22 09:00 01/13/22 09:39 Famotidine 20 Mg/2 Ml Vial IV 20 mg Q12HR GUANAKITO Administration Metoprolol Tartrate 50 mg 01/13/22 21:00 Metoprolol Tartrate 50 Mg Tab PO BID GUANAKITO Naloxone HCl 0.2 mg 01/12/22 16:51 Naloxone 0.4 Mg/Ml 1 Ml Vial IV Q2M PRN Opioid Reversal Intake and Output 01/12/22 01/13/22 01/13/22 22:59 06:59 14:59 Other: # Voids 2 Weight 113.398 kg 01/12/22 15:52 01/12/22 15:52
[2022-01-13 11:19] LABS: Glucose,Whole Blood 174 mg/dL (75-99)
--- NOTE | 2022-01-13 11:51 | P.HPIM ---
History of Present Illness This is a pleasant 76 years old male with past medical history of asthma, Diabetes Mellitus, Hyperlipidemia, Hypertension, Osteoarthritis , Pulmonary Embolus on Eliquis, Sleep Apnea/CPAP/BIPAP. He follows up with , he is on vicoden as he claims and ran out of his medication , his next appointment with him is on 01/21 Patient presents because of dyspnea on on off for the last 2-3 days. Denies chest pain or coughing. No abdominal pain, nausea vomiting or dysuria. No headache weakness or numbness On admission patient was hypertensive with blood pressure 184/105, currently blood pressure is better controlled 133/83, patient is afebrile. He is saturating 98% on room air. Labs including CBC, INR, BMP are unremarkable, glucose is slightly elevated 173, elevated lactic acid came back to normal Liver enzymes, troponin are normal ProBNP is 3100. EKG showing atrial fibrillation at [address]-T changes and 50 mL 86 Chest patient is started on metoprolol x-ray: Stable basilar nodularity with no acute cardiopulmonary process Review of Systems CONSTITUTIONAL: No fever, no malaise, no fatigue. HEENT: No recent visual problems or hearing problems. Denied any sore throat. CARDIOVASCULAR: No orthopnea, PND, no palpitations, no syncope. PULMONARY: No shortness of breath, no cough, no hemoptysis. GASTROINTESTINAL: No diarrhea, no nausea, no vomiting, no abdominal pain. Normoactive bowel sounds. NEUROLOGICAL: No headaches, no weakness, no numbness. HEMATOLOGICAL: Denies any bleeding or petechiae. GENITOURINARY: Denies any burning micturition, frequency, or urgency. MUSCULOSKELETAL/RHEUMATOLOGICAL: Denies any joint pain, swelling, or any muscle pain. ENDOCRINE: Denies any polyuria or polydipsia. Past Medical History Past Medical History: Asthma, Diabetes Mellitus, Hyperlipidemia, Hypertension, Osteoarthritis (OA), Pulmonary Embolus (PE), Sleep Apnea/CPAP/BIPAP Additional Past Medical History / Comment(s): uses c-pap machine, constipation due to norco., states torn left rotator cuff., states constant pain all over, hx of agent orange exposure, ptsd(pt stated if he's sleeping call his name drom door". upper rt dental bridge,hx broken nose, had shingels vaccine-not sure of date. Tinnitus. History of Any Multi-Drug Resistant Organisms: None Reported Past Surgical History: Joint Replacement Additional Past Surgical History / Comment(s): Nemesio total knees, lipoma removed, vasectomy, right rotator cuff., cataracts.lt carpal tunnel release, lt thumb sx, "holes in nemesio retina repaired Past Anesthesia/Blood Transfusion Reactions: No Reported Reaction Past Psychological History: PTSD Smoking Status: Never smoker Past Alcohol Use History: None Reported Additional Past Alcohol Use History / Comment(s): started smoking at age 20 [place]ppd [place] 2[place] off and on till he quit 1997.quit drinking 2007 Past Drug Use History: None Reported - Past Family History Father Family Medical History: Cancer Additional Family Medical History / Comment(s): asbestos exposure Medications and Allergies Home Medications Medication Instructions Recorded Confirmed Type HYDROcodone/APAP 10-325MG [Alpine 1 tab PO Q4H PRN 11/23/21 01/12/22 History 10-325] Apixaban [Eliquis] 5 mg PO BID 01/12/22 01/12/22 History Atorvastatin [Lipitor] 20 mg PO HS 01/12/22 01/12/22 History Allergies Allergy/AdvReac Type Severity Reaction Status Date / Time lovastatin Allergy Muscle Verified 01/12/22 16:26 Weakness sesame oil Allergy Anaphylaxis Verified 01/12/22 16:26 simvastatin Allergy Muscle Verified 01/12/22 16:26 Weakness Physical Exam Vitals: Vital Signs Temp Pulse Pulse Resp BP BP Pulse Ox 01/13/22 05:00 87 17 133/83 98 01/12/22 23:15 78 18 127/78 97 01/12/22 19:50 98 F 88 19 158/93 98 01/12/22 18:45 98.4 F 89 18 171/109 100 01/12/22 18:27 105 H 18 142/96 98 01/12/22 17:45 98 16 142/98 97 01/12/22 15:54 109 H 18 163/114 99 01/12/22 15:20 96.9 F L 72 18 184/105 99 Intake and Output 01/12/22 01/13/22 01/13/22 22:59 06:59 14:59 Other: # Voids 2 Weight 113.398 kg GENERAL: The patient is alert and oriented x3, not in any acute distress. Well developed, well nourished. HEENT: Pupils are round and equally reacting to light. EOMI. No scleral icterus. No conjunctival pallor. Normocephalic, atraumatic. No pharyngeal erythema. No thyromegaly. CARDIOVASCULAR: S1 and S2 present. No murmurs, rubs, or gallops. PULMONARY: Chest is clear to auscultation, no wheezing or crackles. ABDOMEN: Soft, nontender, nondistended, normoactive bowel sounds. No palpable organomegaly. MUSCULOSKELETAL: No joint swelling or deformity. EXTREMITIES: No cyanosis, clubbing, or pedal edema. NEUROLOGICAL: Gross neurological examination did not reveal any focal deficits. SKIN: No rashes. No petechiae Results CBC & Chem 7: 01/12/22 15:52 01/12/22 15:52 Labs: Abnormal Lab Results - Last 24 Hours (Table) 01/12/22 01/12/22 01/13/22 Range/Units 15:52 15:52 06:36 Glucose 168 H (74-99) mg/dL POC Glucose (mg/dL) 173 H (75-99) mg/dL Plasma Lactic Acid Juan Jose 2.1 H* (0.7-2.0) mmol/L Thrombosis Risk Factor Assmnt - Choose All That Apply Any of the Below Risk Factors Present?: No Each Factor Represents 1 point: Obesity (BMI >25) Other Risk Factors: Yes Each Risk Factor Represents 2 Points: Age 61-74 years Each Risk Factor Represents 3 Points: History of DVT/PE Other congenital or acquired thrombophilia - If yes, enter type in comment: No Thrombosis Risk Factor Assessment Total Risk Factor Score: 6 Thrombosis Risk Factor Assessment Level: High Risk Assessment and Plan Assessment: New-onset atrial fibrillation Hypertension Hyperlipidemia Diabetes mellitus chronic pain History of asthma, not in activation History of pulmonary embolism on Eliquis Plan: This is a pleasant 76 years old male presents with A. fib, new onset Continue with Eliquis continue with metoprolol Cardiology consult Labs and medication were reviewed.. Continue same treatment. Continue with sym ptomatic treatment. Resume home medication. Monitor lytes and vitals. DVT and GI prophylaxis. Further recommendations depends on the clinical course of the patient DVT prophylaxis: Eliquis GI Prophylaxis: Pepcid
[2022-01-13 12:23] LABS: T4, Free (Free Thyroxine) 1.13 ng/dL (0.78-2.19)
[2022-01-13] MEDS: FLECAINIDE 50 MG TAB PO SCH ×2 (13:12→23:09)
[2022-01-13 16:36] LABS: Glucose,Whole Blood 151 mg/dL (75-99)
[2022-01-13] MEDS: FUROSEMIDE 10 MG/ML 4 ML VIAL IV SCH (16:58)
--- NOTE | 2022-01-13 19:24 | ECHOF ---
Referral Reason:LV function MEASUREMENTS -------- HEIGHT: 182.9 cm WEIGHT: 113.4 kg BP: 168/99 RVIDd: 3.9 cm (< 3.3) IVSd: 1.6 cm (0.6 - 1.1) LVIDd: 5.2 cm (3.9 - 5.3) LVPWd: 1.6 cm (0.6 - 1.1) IVSs: 2.3 cm LVIDs: 4.2 cm LVPWs: 2.2 cm LA Diam: 5.1 cm (2.7 - 3.8) LAESV Index (A-L): 32.74 ml/m Ao Diam: 4.1 cm (2.0 - 3.7) AV Cusp: 2.3 cm (1.5 - 2.6) MV EXCURSION: 17.459 mm (> 18.000) MV EF SLOPE: 42 mm/s (70 - 150) EPSS: 1.5 cm AR PHT: 454 ms RAP: 5.00 mmHg RVSP: 43.93 mmHg FINDINGS -------- Atrial fibrillation. This was a technically adequate study. The left ventricular size is normal. There is moderate concentric left ventricular hypertrophy. O verall left ventricular systolic function is mild-moderately impaired with, an EF between 40 - 45 %. The right ventricle is moderately enlarged. LA is midly dilated 29-33ml/m2. The right atrium is normal in size. Interatrial and interventricular septum intact. There is mild aortic valve sclerosis. There is mild aortic regurgitation. The mitral valve leaflets are mildly thickened. Mild mitral annular calcification present. Modera pf-sy-ootaif mitral regurgitation is present. Mild tricuspid regurgitation present. There is mild pulmonary hypertension. The right ventricular systolic pressure, as measured by Doppler, is 43.93mmHg. The pulmonic valve is normal. The aortic root is dilated measuring 4.1cm. IVC Not well visulized. There is a trivial pericardial effusion present. CONCLUSIONS -------- 1. The left ventricular size is normal. 2. There is moderate concentric left ventricular hypertrophy. 3. Overall left ventricular systolic function is mild-moderately impaired with, an EF between 40 - 45 %. 4. The right ventricle is moderately enlarged. 5. LA is midly dilated 29-33ml/m2. 6. There is mild aortic valve sclerosis. 7. There is mild aortic regurgitation. 8. The mitral valve leaflets are mildly thickened. 9. Mild mitral annular calcification present. 10. Vibtllcf-wu-viqtve mitral regurgitation is present. 11. Mild tricuspid regurgitation present. 12. There is mild pulmonary hypertension. 13. The right ventricular systolic pressure, as measured by Doppler, is 43.93mmHg. 14. The aortic root is dilated measuring 4.1cm. 15. There is a trivial pericardial effusion present. PUBLIC HEALTH PROGRAM MANAGER: PATRICA Crook
[2022-01-13 20:01] LABS: Glucose,Whole Blood 161 mg/dL (75-99)
[2022-01-13] MEDS ORDERED: ATORVASTATIN 20 MG TAB PO SCH (21:00)
[2022-01-13] MEDS: METOPROLOL TARTRATE 50 MG TAB PO SCH (21:31)
[2022-01-13] MEDS: hydrOXYzine HCL 25 MG TAB PO SCH (21:33)
[2022-01-13] MEDS ORDERED: diphenhydrAMINE 25 MG CAP PO PRN (22:00)
[2022-01-14 04:59] VITALS: TEMP 97.9
[2022-01-14 06:13] LABS: Glucose,Whole Blood 190 mg/dL (75-99)
[2022-01-14] MEDS: METOPROLOL TARTRATE 50 MG TAB PO SCH (08:50)
[2022-01-14] MEDS: hydrOXYzine HCL 25 MG TAB PO SCH ×2 (08:50→12:31)
[2022-01-14] MEDS: APIXABAN 5 MG TAB PO SCH (08:50)
[2022-01-14] MEDS: FLECAINIDE 50 MG TAB PO SCH (08:50)
[2022-01-14] MEDS: FUROSEMIDE 10 MG/ML 4 ML VIAL IV SCH (08:51)
[2022-01-14] MEDS: FAMOTIDINE 20 MG/2 ML VIAL IV SCH (08:51)
[2022-01-14] MEDS ORDERED: HYDROcodone/APAP 10-325MG 1 EACH TAB PO PRN (09:10)
[2022-01-14 09:53] VITALS: RESP 20
[2022-01-14 11:46] LABS: Glucose,Whole Blood 183 mg/dL (75-99)
[2022-01-14 11:47] VITALS: BP 126/79; PULSE 78
--- NOTE | 2022-01-14 12:45 | P.PN ---
Subjective Progress Note Date: 01/14/22 HISTORY OF PRESENT ILLNESS: This is a 76-year-old male with a past medical history significant for chronic back pain, pulmonary embolism on Eliquis and Covid in 2020. Patient does not follow with a clinical data analyst. We have been asked to see the patient in consultation for ARicardo olivarez with RVR. Patient examined at the bedside. patient presented to the emergency room with a chief complaint of shortness of breath. Patient denied having any chest pain or pressure. He denied having any pa lpitations. EKG completed in the emergency room revealed atrial fibrillation with RVR. The patient was started on oral metoprolol. Patient is already prescribed anticoagulation in the form of Eliquis. Patient states he has been compliant with his Eliquis at home. Patient remains in atrial fibrillation this morning with a heart rate ranging between 90-100. Patient denies any nicotine use. He denies any alcohol or drug use. * EKG reveals atrial fibrillation with RVR * Chest xray stable basilar nodularity as described. No acute cardiopulmonary disease evident. * Laboratory data: WBC 8.0. Hemoglobin 15.8. Platelet count 226. Sodium 137. Potassium 4.3. BUN 15. Creatinine 1.14. troponin negative 1. ProBNP 3100. * Current home cardiac medications include Eliquis 5mg BID and Lipitor 40mg at HS * Most recent echocardiogram obtained in 2018 revealed ejection fraction 55-60%, mild MR, trace TR 01/14/2022 Patient examined this morning at the bedside. Patient denies chest pain or pressure. He denies shortness of breath. Telemetry reveals atrial fibrillation with a heart rate in the 90s. Patient is currently receiving metoprolol 50 mg twice a day. Echocardiogram completed revealing ejection fraction 40-45%, mild aortic regurgitation, moderate to severe mitral regurgitation, mild tricuspid regurgitation and mild pulmonary hypertension. PHYSICAL EXAM: VITAL SIGNS: Reviewed. GENERAL: Well-developed in no acute distress. HEENT: Head is normocephalic. Pupils are equal, round. Sclerae anicteric. Mucous membranes of the mouth are moist. Neck supple. No JVD or thyromegaly LUNGS: Respirations even and unlabored. Lungs essentially clear to auscultation bilaterally. HEART: Irregular rate and rhythm. S1 and S2 heard. ABDOMEN: Soft. Nondistended. Nontender. EXTREMITIES: Normal range of motion. No clubbing or cyanosis. Peripheral puls es intact. No lower extremity edema NEUROLOGIC: Awake and alert. Oriented x 3. ASSESSMENT: Shortness of breath New-onset atrial fibrillation with RVR History of pulmonary embolism on Eliquis History of Covid 2020 Hyperlipidemia Chronic back pain PLAN: Continue Eliquis Increase metoprolol 75 mg twice a day Discontinue IV Lasix. Begin oral Lasix 20 mg daily Patient may be discharged home today from a cardiac standpoint and follow up on an outpatient basis Nurse practitioner note has been reviewed by physician. Signing provider agrees with the documented findings, assessment, and plan of care. Objective - Vital Signs Vital signs: Vital Signs Temp 97.9 F 01/14/22 11:47 Pulse 78 01/14/22 11:47 Resp 20 01/14/22 11:47 BP 126/79 01/14/22 11:47 Pulse Ox 99 01/14/22 11:47 Intake & Output 01/13/22 01/14/22 01/14/22 18:59 06:59 18:59 Intake Total 120 Output Total 0 Balance 120 Weight 112.8 kg Intake: Oral 120 Output: Urine 0 Stool 0 Urine/Stool Mix 0 Other: # Voids 1 1 0 # Bowel Movements 0 - Labs CBC & Chem 7: 01/12/22 15:52 01/12/22 15:52 Labs: Abnormal Lab Results - Last 24 Hours (Table) 01/13/22 01/13/22 01/14/22 Range/Units 16:34 20:00 06:12 POC Glucose (mg/dL) 151 H 161 H 190 H (75-99) mg/dL 01/14/22 Range/Units 11:44 POC Glucose (mg/dL) 183 H (75-99) mg/dL
[2022-01-14] MEDS ORDERED: METOPROLOL TARTRATE 25 MG TAB PO SCH (21:00)
[2022-01-15] MEDS ORDERED: FUROSEMIDE 20 MG TAB PO SCH (09:00)
--- NOTE | 2022-01-15 09:04 | P.DS ---
Providers Date of admission: 01/12/22 16:51 Attending physician: Cesar Deshpande Consults: 01/12/22 16:51 Consult Physician Urgent Consulting Provider: [facility] Consult Reason/Comments: new afib Do you want consulting provider notified?: Yes [facility]: Diagnoses: New-onset atrial fibrillation Hypertension Hyperlipidemia Diabetes mellitus chronic pain History of asthma, not in activation History of pulmonary embolism on [facility] course: This is a pleasant 76 years old male with past medical history of asthma, Diabetes Mellitus, Hyperlipidemia, Hypertension, Osteoarthritis , Pulmonary Embolus on Eliquis, Sleep Apnea/CPAP/BIPAP. He follows up with , he is on vicoden as he claims and ran out of his medication , his next appointment with him is on 01/21 Patient presents because of dyspnea on and off for the last 2-3 days. Patient found to have new onset A. fib and RVR Patient evaluated by spot welder line. On the day of discharge he was asymptomatic, no chest pain, no dyspnea, no change in urine or bowel habits. No fever. Patient discharged on flecainide 50 mg, metoprolol 75 mg and Lasix daily Problems and management plan were discussed with the patient and he verbalized understanding and acceptance Patient was found stable and can be discharged home however he needs follow-up as an outpatient. Patient was instructed to follow up with PCP Dr. ames within one week and patient agrees Patient was instructed to follow up with spot welder line Dr. Arizmendi in one week and he agrees to call and make appointment as well as with his been Dr. Friend in 1-3 days and he agrees Physical exam Gen: patient is a AAOx3, no distress CVS: S1-S2, RRR, no murmur Lungs: B/L CTA, no wheezing Abdomen: soft, no distention, no tenderness, positive bowel sounds Extremity: no leg edema or induration Time spent more than 35 minutes Patient Condition at Discharge: Serious Plan - Discharge Summary Discharge Rx Participant: No New Discharge Prescriptions: New Metoprolol Tartrate [Lopressor] 75 mg PO BID #180 tab Flecainide [Tambocor] 50 mg PO Q12HR #60 tab Furosemide [Lasix] 20 mg PO DAILY #30 tab Continue Atorvastatin [Lipitor] 20 mg PO HS HYDROcodone/APAP 10-325MG [Currie 10-325] 1 tab PO Q4H PRN PRN Reason: Pain Apixaban [Eliquis] 5 mg PO BID Discharge Medication List HYDROcodone/APAP 10-325MG [Currie 10-325] 1 tab PO Q4H PRN 11/23/21 [History] Apixaban [Eliquis] 5 mg PO BID 01/12/22 [History] Atorvastatin [Lipitor] 20 mg PO HS 01/12/22 [History] Flecainide [Tambocor] 50 mg PO Q12HR #60 tab 01/14/22 [Rx] Furosemide [Lasix] 20 mg PO DAILY #30 tab 01/14/22 [Rx] Metoprolol Tartrate [Lopressor] 75 mg PO BID #180 tab 01/14/22 [Rx] Follow up Appointment(s)/Referral(s): Diamond Trejo MD [Primary Care Provider] - 01/28/22 8:30 am Enzo Friend MD [STAFF PHYSICIAN] - 1-2 Days Farooq Arizmendi MD [STAFF PHYSICIAN] - 1 Week (office will call to make follow up appointment) Patient Instructions/Handouts: Heart Healthy Diet (DC) Activity/Diet/Wound Care/Special Instructions: Activity is restricted until you see your doctor heart healthy diet Discharge Disposition: HOME SELF-CARE
== END 2022-01-14 14:28 | disposition home or self-care (01) | DRG 310 ==
LOC: EC 15:01 → 3SCARD 16:51
PROVIDERS: ADMIT Hospitalist; ATTEND Hospitalist
DX: I48.91 Unspecified atrial fibrillation (principal); E11.9 Type 2 diabetes mellitus without complications; E78.5 Hyperlipidemia, unspecified; F43.10 Post-traumatic stress disorder, unspecified; I08.1 Rheumatic disorders of both mitral and tricuspid valves; M54.9 Dorsalgia, unspecified; G89.29 Other chronic pain; M19.90 Unspecified osteoarthritis, unspecified site; I10 Essential (primary) hypertension; J45.909 Unspecified asthma, uncomplicated; Z79.01 Long term (current) use of anticoagulants; Z79.891 Long term (current) use of opiate analgesic; Z79.899 Other long term (current) drug therapy; Z86.16 Personal history of COVID-19; Z86.711 Personal history of pulmonary embolism; Z87.891 Personal history of nicotine dependence; Z88.8 Allergy status to other drugs, medicaments and biological substances; Z96.653 Presence of artificial knee joint, bilateral; Z98.49 Cataract extraction status, unspecified eye
CPT/HCPCS: 36415; 71046; 80053; 83605; 83880; 84439; 84443; 84484; 85025; 85610; 85730; 93005; 93306; 99285

== ENCOUNTER → 2022-01-27 | Outpatient (CLI) | payer OTHER ==
--- NOTE | 2022-01-27 15:14 | US ---
EXAMINATION TYPE: US kidneys/renal and bladder DATE OF EXAM: 01/27/2022 COMPARISON: 10/12/2021 CLINICAL HISTORY: N18.9 CHRONIC KIDNEY DISEASE, UNSPECIFIED. EXAM MEASUREMENTS: Right Kidney: 12.0 x 6.4 x 4.8 cm Left Kidney: 11.5 x 5.4 x 4.8 cm Right Kidney: Cyst measuring 1.6 x 1.5 x 1.6cm Left Kidney: Cyst measuring 3.0 x 1.7 x 2.1cm Bladder: wnl IMPRESSION: 1. Bilateral renal cysts
== END | disposition home or self-care (01) ==
LOC: RADUSWWP 13:51
PROVIDERS: ATTEND Internal Medicine
DX: N28.1 Cyst of kidney, acquired (principal)
CPT/HCPCS: 76770

== ENCOUNTER → 2022-01-28 | Outpatient (CLI) | payer OTHER ==
--- NOTE | 2022-01-28 10:45 | XR ---
EXAM TYPE: LUMBAR SPINE X RAY SERIES COMPARISON: NONE HISTORY: Pain TECHNIQUE: 4 views are submitted. FINDINGS: Alignment is anatomic. The pedicles are intact. The transverse processes are intact. Vascular calci fications noted. Hypertrophic and degenerative changes of the spine is marked at L2-3 and L5-S1. Betsy re facet arthropathy with grade 1 anterolisthesis L4 on L5. IMPRESSION: 1. Multilevel degenerative disc disease with facet arthropathy and grade 1 anterolisthesis L4 on L5. Recommend follow-up MRI.
--- NOTE | 2022-01-28 10:53 | XR ---
EXAMINATION TYPE: XR cervical spine comp DATE OF EXAM: 01/28/2022 COMPARISON: NONE HISTORY: Neck pain TECHNIQUE: Four views are submitted. FINDINGS: The odontoid is intact. There are no compression deformities. The prevertebral soft tissue structur es are within normal limits. Severe degenerative change C5-6 and C6-C7 with posterior spondylosis. C alcifications are seen in the soft tissues of the neck likely related to dense carotid artery calcifi cation. Facet arthropathy at multiple levels with multilevel foraminal encroachment. IMPRESSION: 1. Multilevel severe degenerative disc disease with multilevel facet arthropathy and foraminal encroa chment. Recommend MRI.
== END | disposition home or self-care (01) ==
LOC: RADXRMAIN 09:56
PROVIDERS: ATTEND Family Medicine
DX: M51.37 Other intervertebral disc degeneration, lumbosacral region (principal); M47.817 Spondylosis without myelopathy or radiculopathy, lumbosacral region; M43.16 Spondylolisthesis, lumbar region; M50.323 Other cervical disc degeneration at C6-C7 level; M47.812 Spondylosis without myelopathy or radiculopathy, cervical region
CPT/HCPCS: 72050; 72110

== ENCOUNTER 2022-02-15 02:26 | Emergency (ER) | payer OTHER ==
[2022-02-15 02:33] VITALS: TEMP 98.6
[2022-02-15] MEDS ORDERED: FUROSEMIDE 10 MG/ML 4 ML VIAL IV STA (03:08)
[2022-02-15] MEDS ORDERED: NITROGLYCERIN OINT 1 INCH/GM PACKET TOPICAL STA (03:08)
[2022-02-15] MEDS ORDERED: ASPIRIN 81 MG PO STA (03:10)
[2022-02-15 03:12] LABS: Basophils % (A) 1 %; Eosinophils # (A) 0.2 k/uL (0-0.7); Eosinophils % (A) 3 %; HCT 41.4 % (39.0-53.0); HGB 13.9 gm/dL (13.0-17.5); Lymphocytes # (A) 1.8 k/uL (1.0-4.8); Lymphocytes % (A) 26 %; MCH 32.6 pg (25.0-35.0); MCHC 33.5 g/dL (31.0-37.0); MCV 97.3 fL (80.0-100.0); Mean Platelet Volume 7.5; Monocytes # (A) 0.3 k/uL (0-1.0); Monocytes % (A) 5 %; Neutrophils # (A) 4.4 k/uL (1.3-7.7); Neutrophils % (A) 64 %; Platelet Count 192 k/uL (150-450); RBC 4.26 m/uL (4.30-5.90); RDW 14.1 % (11.5-15.5); WBC 6.8 k/uL (3.8-10.6)
--- NOTE | 2022-02-15 03:18 | ED ---
SOB HPI - General Source: patient, RN notes reviewed Mode of arrival: wheelchair - History of Present Illness MD Complaint: shortness of breath <Sylvester Buckley - Last Filed: 02/15/22 04:31> <Aleksander Herrera - Last Filed: 02/15/22 06:29> - General Chief Complaint: Shortness of Breath Stated Complaint: WANG Time Seen by Provider: 02/15/22 02:48 - History of Present Illness Initial Comments: This is a pleasant 76-year-old male with history of hypertension, pulmonary embolism, asthma, and diabetes mellitus. Patient states up until recently he was on furosemide. Patient states she's been unable to get that medication. He states he's been out of it for about 2 weeks. He states skin about 15 pounds in the last week and a half. Patient denying any overt chest pain but has some chest tightness. Patient states she started having shortness of breath. Patient is on anticoagulation therapy for the previous pulmonary embolus. He states his been taking all of her medications appropriately. States the only medicine he has been out of is the diuretic. Patient states all of his symptoms seemed to start after he got COVID-19. Patient was recently diagnosed with atrial fibrillation as well. 15 pound weight gain, No headache, no fever or chills, no changes in vision or hearing, no sore throat or difficulty with speech, no neck pain, no abdominal pain, no nausea or vomiting, no changes in urination or bowel movements, no numbness or tingling, no extremity pain, no skin rashes or lesions. (Sylvester Buckley) - Related Data Home Medications Medication Instructions Recorded Confirmed HYDROcodone/APAP 10-325MG [[place] 1 tab PO Q4H PRN 11/23/21 01/12/22 10-325] Apixaban [Eliquis] 5 mg PO BID 01/12/22 01/12/22 Atorvastatin [Lipitor] 20 mg PO HS 01/12/22 01/12/22 Previous Rx's Medication Instructions Recorded Flecainide [Tambocor] 50 mg PO Q12HR #60 tab 01/14/22 Furosemide [Lasix] 20 mg PO DAILY #30 tab 01/14/22 Metoprolol Tartrate [Lopressor] 75 mg PO BID #180 tab 01/14/22 Furosemide [Lasix] 20 mg PO DAILY #20 tab 02/15/22 Allergies Allergy/AdvReac Type Severity Reaction Status Date / Time lovastatin Allergy Muscle Verified 02/15/22 02:33 Weakness sesame oil Allergy Anaphylaxis Verified 02/15/22 02:33 simvastatin Allergy Muscle Verified 02/15/22 02:33 Weakness Review of Systems ROS Other: All systems not noted in ROS Statement are negative. <Sylvester Buckley - Last Filed: 02/15/22 04:31> ROS Other: All systems not noted in ROS Statement are negative. <Aleksander Herrera - Last Filed: 02/15/22 06:29> ROS Statement: Those systems with pertinent positive or pertinent negative responses have been documented in the HPI. Past Medical History Past Medical History: Asthma, Diabetes Mellitus, Hyperlipidemia, Hypertension, Osteoarthritis (OA), Pulmonary Embolus (PE), Sleep Apnea/CPAP/BIPAP Additional Past Medical History / Comment(s): uses c-pap machine, constipation due to norco., states torn left rotator cuff., states constant pain all over, hx of agent orange exposure, ptsd(pt stated if he's sleeping call his name drom door". upper rt dental bridge,hx broken nose, had shingels vaccine-not sure of date. Tinnitus. History of Any Multi-Drug Resistant Organisms: None Reported Past Surgical History: Joint Replacement Additional Past Surgical History / Comment(s): [place] total knees, lipoma removed, vasectomy, right rotator cuff., cataracts.lt carpal tunnel release, lt thumb sx, "holes in kiko retina repaired Past Anesthesia/Blood Transfusion Reactions: No Reported Reaction Past Psychological History: PTSD Smoking Status: Never smoker Past Alcohol Use History: None Reported Past Drug Use History: None Reported - Past Family History Father Family Medical History: Cancer Additional Family Medical History / Comment(s): asbestos exposure <Sylvester Buckley - Last Filed: 02/15/22 04:31> General Exam General appearance: obese Head exam: Present: atraumatic, normocephalic, normal inspection Eye exam: Present: normal appearance, PERRL, EOMI. Absent: scleral icterus, conjunctival injection, periorbital swelling ENT exam: Present: normal exam, normal oropharynx, mucous membranes moist Neck exam: Present: normal inspection, full ROM. Absent: tenderness, meningismus, lymphadenopathy Respiratory exam: Present: rales. Absent: respiratory distress, wheezes, rhonchi, stridor, chest wall tenderness, accessory muscle use Cardiovascular Exam: Present: normal rhythm, tachycardia (Minimal tachycardia at 100 form and as I'm assessing the patient), normal heart sounds. Absent: systolic murmur, diastolic murmur, rubs, gallop, clicks GI/Abdominal exam: Present: soft, normal bowel sounds. Absent: distended, tenderness, guarding, rebound, rigid Extremities exam: Present: normal inspection, full ROM, normal capillary refill. Absent: tenderness, pedal edema, joint swelling, calf tenderness Back exam: Present: normal inspection Neurological exam: Present: alert, oriented X3, CN II-XII intact Psychiatric exam: Present: normal affect, normal mood Skin exam: Present: warm, dry, intact, normal color. Absent: rash <Sylvester Buckley - Last Filed: 02/15/22 04:31> - General Exam Comments Initial Comments: Obese 76-year-old male in minimal distress. Patient does not appear to be ill or toxic. (Sylvester Buckley) Course Vital Signs 02/15/22 02/15/22 02/15/22 02:28 03:33 04:42 Temperature 98.6 F Pulse Rate 118 H 106 H 105 H Respiratory 20 18 16 Rate Blood Pressure 181/104 140/92 139/107 O2 Sat by Pulse 98 98 97 Oximetry Medical Decision Making - Lab Data Result diagrams: 02/15/22 02:56 02/15/22 02:56 <Sylvester Buckley - Last Filed: 02/15/22 04:31> - Lab Data Result diagrams: 02/15/22 02:56 02/15/22 02:56 <Aleksander Herrera - Last Filed: 02/15/22 06:29> - Medical Decision Making Patient septostomy most consistent with congestive heart failure as he has had a 15 pound weight gain in a week and a half. During this time he has been without his furosemide. Patient has no definitive diagnosis of CHF previously but has recently had new onset atrial fibrillation after having COVID-19. Patient is anticoagulated on Eliquis. Patient will be endorsed ED attending physician for further treatment and disposition. (Sylvester Buckley) - Lab Data Lab Results 02/15/22 02/15/22 02/15/22 Range/Units 02:56 02:56 02:56 WBC 6.8 (3.8-10.6) k/uL RBC 4.26 L (4.30-5.90) m/uL Hgb 13.9 (13.0-17.5) gm/dL Hct 41.4 (39.0-53.0) % MCV 97.3 (80.0-100.0) fL MCH 32.6 (25.0-35.0) pg MCHC 33.5 (31.0-37.0) g/dL RDW 14.1 (11.5-15.5) % Plt Count 192 (150-450) k/uL MPV 7.5 Neutrophils % 64 % Lymphocytes % 26 % Monocytes % 5 % Eosinophils % 3 % Basophils % 1 % Neutrophils # 4.4 (1.3-7.7) k/uL Lymphocytes # 1.8 (1.0-4.8) k/uL Monocytes # 0.3 (0-1.0) k/uL Eosinophils # 0.2 (0-0.7) k/uL Basophils # 0.0 (0-0.2) k/uL PT 11.6 (9.0-12.0) sec INR 1.1 (<1.2) APTT 23.4 (22.0-30.0) sec Sodium 136 L (137-145) mmol/L Potassium 4.7 (3.5-5.1) mmol/L Chloride 106 (98-107) mmol/L Carbon Dioxide 23 (22-30) mmol/L Anion Gap 7 mmol/L BUN 19 (9-20) mg/dL Creatinine 1.22 (0.66-1.25) mg/dL Est GFR (CKD-EPI)AfAm 67 (>60 ml/min/1.73 sqM) Est GFR (CKD-EPI)NonAf 58 (>60 ml/min/1.73 sqM) Glucose 197 H (74-99) mg/dL Calcium 8.6 (8.4-10.2) mg/dL Magnesium 1.8 (1.6-2.3) mg/dL Total Bilirubin 0.6 (0.2-1.3) mg/dL AST 50 (17-59) U/L ALT 41 (4-49) U/L Alkaline Phosphatase 62 (38-126) U/L Troponin I (0.000-0.034) ng/mL NT-Pro-B Natriuret Pep pg/mL Total Protein 6.7 (6.3-8.2) g/dL Albumin 3.8 (3.5-5.0) g/dL 02/15/22 02/15/22 Range/Units 02:56 02:56 WBC (3.8-10.6) k/uL RBC (4.30-5.90) m/uL Hgb (13.0-17.5) gm/dL Hct (39.0-53.0) % MCV (80.0-100.0) fL MCH (25.0-35.0) pg MCHC (31.0-37.0) g/dL RDW (11.5-15.5) % Plt Count (150-450) k/uL MPV Neutrophils % % Lymphocytes % % Monocytes % % Eosinophils % % Basophils % % Neutrophils # (1.3-7.7) k/uL Lymphocytes # (1.0-4.8) k/uL Monocytes # (0-1.0) k/uL Eosinophils # (0-0.7) k/uL Basophils # (0-0.2) k/uL PT (9.0-12.0) sec INR (<1.2) APTT (22.0-30.0) sec Sodium (137-145) mmol/L Potassium (3.5-5.1) mmol/L Chloride (98-107) mmol/L Carbon Dioxide (22-30) mmol/L Anion Gap mmol/L BUN (9-20) mg/dL Creatinine (0.66-1.25) mg/dL Est GFR (CKD-EPI)AfAm (>60 ml/min/1.73 sqM) Est GFR (CKD-EPI)NonAf (>60 ml/min/1.73 sqM) Glucose (74-99) mg/dL Calcium (8.4-10.2) mg/dL Magnesium (1.6-2.3) mg/dL Total Bilirubin (0.2-1.3) mg/dL AST (17-59) U/L ALT (4-49) U/L Alkaline Phosphatase (38-126) U/L Troponin I <0.012 (0.000-0.034) ng/mL NT-Pro-B Natriuret Pep 3540 pg/mL Total Protein (6.3-8.2) g/dL Albumin (3.5-5.0) g/dL - EKG Data EKG Comments: EKG was done at 2:47 AM and reviewed with ED attending physician. Atrial fibrillation with rapid ventricular response, heart rate 102. Remainder of the intervals are normal. No evidence of acute ST or T wave changes. Left axis deviation. When compared to the previous study from 01/12/2022 there is no significant change. (Sylvester Buckley) Disposition <Sylvester Buckley - Last Filed: 02/15/22 04:31> Is patient prescribed a controlled substance at d/c from ED?: No <Aleksander Herrera - Last Filed: 02/15/22 06:29> Clinical Impression: CHF exacerbation, Chronic atrial fibrillation Disposition: HOME SELF-CARE Condition: Good Instructions (If sedation given, give patient instructions): Heart Failure (ER) Prescriptions: Furosemide [Lasix] 20 mg PO DAILY #20 tab Referrals: Diamond Trejo MD [Primary Care Provider] - 1-2 days
[2022-02-15 03:24] LABS: INR 1.1 (<1.2); Partial Thromboplastin Time 23.4 sec (22.0-30.0); Prothrombin Time 11.6 sec (9.0-12.0)
--- NOTE | 2022-02-15 03:37 | XR ---
EXAMINATION TYPE: XR chest 1V portable DATE OF EXAM: 02/15/2022 COMPARISON: NONE HISTORY: 01/12/2022 TECHNIQUE: Short of breath FINDINGS: Heart is enlarged. There is some pulmonary vascular congestion. There is mild pulmonary int erstitial edema. There are chest leads. Bony thorax appears intact. IMPRESSION: Mild congestive heart failure that appears new compared to old exam.
[2022-02-15 04:01] LABS: Albumin 3.8 g/dL (3.5-5.0); Calcium 8.6 mg/dL (8.4-10.2); Magnesium 1.8 mg/dL (1.6-2.3); Potassium 4.7 mmol/L (3.5-5.1); Total Bilirubin 0.6 mg/dL (0.2-1.3); Total Protein 6.7 g/dL (6.3-8.2)
[2022-02-15 06:34] VITALS: BP 149/94; PULSE 86; RESP 18
== END 2022-02-15 06:41 | disposition home or self-care (01) ==
LOC: EC 02:26
DX: I48.20 Chronic atrial fibrillation, unspecified (principal); I50.9 Heart failure, unspecified; Z91.018 Allergy to other foods; J45.909 Unspecified asthma, uncomplicated; I10 Essential (primary) hypertension; Z88.8 Allergy status to other drugs, medicaments and biological substances
CPT/HCPCS: 36415; 93005; 83880; 80053; 83735; 84484; 85025; 85610; 85730; 71045; 99285; 96374; J1940

== ENCOUNTER 2022-02-17 21:44 | Emergency (ER) | payer OTHER ==
[2022-02-17 22:30] LABS: Basophils # (A) 0.1 k/uL (0-0.2); Basophils % (A) 1 %; Eosinophils # (A) 0.2 k/uL (0-0.7); Eosinophils % (A) 3 %; HCT 43.3 % (39.0-53.0); Lymphocytes # (A) 2.5 k/uL (1.0-4.8); Lymphocytes % (A) 34 %; MCH 30.9 pg (25.0-35.0); MCHC 32.3 g/dL (31.0-37.0); MCV 95.9 fL (80.0-100.0); Mean Platelet Volume 7.5; Monocytes # (A) 0.5 k/uL (0-1.0); Monocytes % (A) 7 %; Neutrophils # (A) 3.9 k/uL (1.3-7.7); Neutrophils % (A) 53 %; Platelet Count 191 k/uL (150-450); RBC 4.52 m/uL (4.30-5.90); RDW 13.2 % (11.5-15.5); WBC 7.4 k/uL (3.8-10.6)
[2022-02-17 22:43] LABS: Albumin 4.2 g/dL (3.5-5.0); Calcium 8.9 mg/dL (8.4-10.2); Magnesium 1.7 mg/dL (1.6-2.3); Potassium 4.4 mmol/L (3.5-5.1); Total Bilirubin 0.8 mg/dL (0.2-1.3); Total Protein 7.3 g/dL (6.3-8.2)
[2022-02-17 22:49] LABS: INR 1.1 (<1.2); Prothrombin Time 11.4 sec (9.0-12.0)
--- NOTE | 2022-02-18 00:58 | ED ---
Recheck HPI - General Chief Complaint: Chest Pain Stated Complaint: SOB High blood pressure 179/129 Time Seen by Provider: 02/18/22 00:50 Source: patient, RN notes reviewed, old records reviewed Mode of arrival: wheelchair Limitations: no limitations - History of Present Illness Initial Comments: This is a 76-year-old male to the ER for evaluation today. Patient is known to facility for multiple different complaints. Blood coming in today for chest pain and shortness of breath. Recent diagnosis of atrial fibrillation which follows with coronavirus diagnosis. Patient states his chest pain is improved here in the ER and shortness of breath is improving. He denies swelling of the lower extremities. Patient is on a water pill at home has been taking all medications as directed. No fevers no travel history no sick contacts no other complaints. MD Complaint: other (Concern for shortness of breath with chest pain, atrial fibrillation) -: hour(s) Returns Today for: persistent/worsening pain related to initial visit, other (Shortness of breath worse with exertion) Symptoms Since Prior Visit: worsening swelling (Patient has no lower extremity swelling) Context: planned re-check Associated Symptoms: chest pain, shortness of breath Treatments Prior to Arrival: other medications, home treatments - Related Data Home Medications Medication Instructions Recorded Confirmed HYDROcodone/APAP 10-325MG [[place] 1 tab PO Q4H PRN 11/23/21 01/12/22 10-325] Apixaban [Eliquis] 5 mg PO BID 01/12/22 01/12/22 Atorvastatin [Lipitor] 20 mg PO HS 01/12/22 01/12/22 Previous Rx's Medication Instructions Recorded Flecainide [Tambocor] 50 mg PO Q12HR #60 tab 01/14/22 Furosemide [Lasix] 20 mg PO DAILY #30 tab 01/14/22 Metoprolol Tartrate [Lopressor] 75 mg PO BID #180 tab 01/14/22 Furosemide [Lasix] 20 mg PO DAILY #20 tab 02/15/22 Allergies Allergy/AdvReac Type Severity Reaction Status Date / Time lovastatin Allergy Muscle Verified 02/17/22 21:53 Weakness sesame oil Allergy Anaphylaxis Verified 02/17/22 21:53 simvastatin Allergy Muscle Verified 02/17/22 21:53 Weakness Review of Systems ROS Statement: Those systems with pertinent positive or pertinent negative responses have been documented in the HPI. ROS Other: All systems not noted in ROS Statement are negative. Past Medical History Past Medical History: Asthma, Diabetes Mellitus, Hyperlipidemia, Hypertension, Osteoarthritis (OA), Pulmonary Embolus (PE), Sleep Apnea/CPAP/BIPAP Additional Past Medical History / Comment(s): uses c-pap machine, constipation due to norco., states torn left rotator cuff., states constant pain all over, hx of agent orange exposure, ptsd(pt stated if he's sleeping call his name drom door". upper rt dental bridge,hx broken nose, had shingels vaccine-not sure of date. Tinnitus. History of Any Multi-Drug Resistant Organisms: None Reported Past Surgical History: Joint Replacement Additional Past Surgical History / Comment(s): Nemesio total knees, lipoma removed, vasectomy, right rotator cuff., cataracts.lt carpal tunnel release, lt thumb sx, "holes in nemesio retina repaired Past Anesthesia/Blood Transfusion Reactions: No Reported Reaction Past Psychological History: PTSD Smoking Status: Never smoker Past Alcohol Use History: None Reported Past Drug Use History: None Reported - Past Family History Father Family Medical History: Cancer Additional Family Medical History / Comment(s): asbestos exposure General Exam General appearance: alert, in no apparent distress, anxious Head exam: Present: atraumatic, normocephalic, normal inspection Eye exam: Present: normal appearance, PERRL, EOMI. Absent: scleral icterus, conjunctival injection, periorbital swelling ENT exam: Present: normal exam, mucous membranes moist Neck exam: Present: normal inspection. Absent: tenderness, meningismus, l ymphadenopathy Respiratory exam: Present: normal lung sounds bilaterally. Absent: respiratory distress, wheezes, rales, rhonchi, stridor Cardiovascular Exam: Present: tachycardia, irregular rhythm, normal heart sounds. Absent: systolic murmur, diastolic murmur, rubs, gallop, clicks GI/Abdominal exam: Present: soft, normal bowel sounds. Absent: distended, tenderness, guarding, rebound, rigid Extremities exam: Present: normal inspection, full ROM, normal capillary refill. Absent: tenderness, pedal edema, joint swelling, calf tenderness Back exam: Present: normal inspection Neurological exam: Present: alert, oriented X3, CN II-XII intact Psychiatric exam: Present: normal affect, normal mood Skin exam: Present: warm, dry, intact, normal color. Absent: rash Course Vital Signs 02/17/22 02/18/22 21:49 01:55 Temperature 97.4 F L Pulse Rate 101 H Respiratory 18 22 Rate Blood Pressure 161/109 O2 Sat by Pulse 99 Oximetry - Reevaluation(s) Reevaluation #1: 02/18/22 02:27 Medical record is reviewed Reevaluation #2: 02/18/22 02:27 Patient is in no distress here in the ER, currently not short of breath but also has normal Reevaluation #3: 02/18/22 02:27 Patient informed of results and questions have been answered Reevaluation #4: 02/18/22 02:28 Patient states he feels much improved here in the ER reassured by improved blood pressure and good oxygen with like discharge home Medical Decision Making - Medical Decision Making 76 male well-known to our facility coming in for evaluation of shortness of breath and chest pain concern for worsening atrial fibrillation her CHF. X-rays negative lab values normal patient can be discharged home - Lab Data Result diagrams: 02/17/22 22:14 02/17/22 22:14 Lab Results 02/17/22 02/17/22 02/17/22 Range/Units 22:14 22:14 22:14 WBC 7.4 (3.8-10.6) k/uL RBC 4.52 (4.30-5.90) m/uL Hgb 14.0 (13.0-17.5) gm/dL Hct 43.3 (39.0-53.0) % MCV 95.9 (80.0-100.0) fL MCH 30.9 (25.0-35.0) pg MCHC 32.3 (31.0-37.0) g/dL RDW 13.2 (11.5-15.5) % Plt Count 191 (150-450) k/uL MPV 7.5 Neutrophils % 53 % Lymphocytes % 34 % Monocytes % 7 % Eosinophils % 3 % Basophils % 1 % Neutrophils # 3.9 (1.3-7.7) k/uL Lymphocytes # 2.5 (1.0-4.8) k/uL Monocytes # 0.5 (0-1.0) k/uL Eosinophils # 0.2 (0-0.7) k/uL Basophils # 0.1 (0-0.2) k/uL PT 11.4 (9.0-12.0) sec INR 1.1 (<1.2) APTT 24.0 (22.0-30.0) sec Sodium 136 L (137-145) mmol/L Potassium 4.4 (3.5-5.1) mmol/L Chloride 102 (98-107) mmol/L Carbon Dioxide 24 (22-30) mmol/L Anion Gap 10 mmol/L BUN 22 H (9-20) mg/dL Creatinine 1.39 H (0.66-1.25) mg/dL Est GFR (CKD-EPI)AfAm 58 (>60 ml/min/1.73 sqM) Est GFR (CKD-EPI)NonAf 50 (>60 ml/min/1.73 sqM) Glucose 165 H (74-99) mg/dL Calcium 8.9 (8.4-10.2) mg/dL Magnesium 1.7 (1.6-2.3) mg/dL Total Bilirubin 0.8 (0.2-1.3) mg/dL AST 29 (17-59) U/L ALT 29 (4-49) U/L Alkaline Phosphatase 64 (38-126) U/L Troponin I (0.000-0.034) ng/mL NT-Pro-B Natriuret Pep pg/mL Total Protein 7.3 (6.3-8.2) g/dL Albumin 4.2 (3.5-5.0) g/dL 02/17/22 02/18/22 Range/Units 22:14 01:02 WBC (3.8-10.6) k/uL RBC (4.30-5.90) m/uL Hgb (13.0-17.5) gm/dL Hct (39.0-53.0) % MCV (80.0-100.0) fL MCH (25.0-35.0) pg MCHC (31.0-37.0) g/dL RDW (11.5-15.5) % Plt Count (150-450) k/uL MPV Neutrophils % % Lymphocytes % % Monocytes % % Eosinophils % % Basophils % % Neutrophils # (1.3-7.7) k/uL Lymphocytes # (1.0-4.8) k/uL Monocytes # (0-1.0) k/uL Eosinophils # (0-0.7) k/uL Basophils # (0-0.2) k/uL PT (9.0-12.0) sec INR (<1.2) APTT (22.0-30.0) sec Sodium (137-145) mmol/L Potassium (3.5-5.1) mmol/L Chloride (98-107) mmol/L Carbon Dioxide (22-30) mmol/L Anion Gap mmol/L BUN (9-20) mg/dL Creatinine (0.66-1.25) mg/dL Est GFR (CKD-EPI)AfAm (>60 ml/min/1.73 sqM) Est GFR (CKD-EPI)NonAf (>60 ml/min/1.73 sqM) Glucose (74-99) mg/dL Calcium (8.4-10.2) mg/dL Magnesium (1.6-2.3) mg/dL Total Bilirubin (0.2-1.3) mg/dL AST (17-59) U/L ALT (4-49) U/L Alkaline Phosphatase (38-126) U/L Troponin I <0.012 (0.000-0.034) ng/mL NT-Pro-B Natriuret Pep 2510 pg/mL Total Protein (6.3-8.2) g/dL Albumin (3.5-5.0) g/dL - EKG Data -: EKG Interpreted by Me (EKG is A. fib with RVR 104 QRS 150 QTC 416) - Radiology Data Radiology results: report reviewed (Chest x-rays negative for acute disease), image reviewed Disposition Clinical Impression: Atypical chest pain, Chest pain, Chronic atrial fibrillation Disposition: HOME SELF-CARE Condition: Good Instructions (If sedation given, give patient instructions): Chest Pain (ED) Is patient prescribed a controlled substance at d/c from ED?: No Referrals: Diamond Trejo MD [Primary Care Provider] - 1-2 days
--- NOTE | 2022-02-18 01:21 | XR ---
EXAMINATION TYPE: XR chest 1V portable DATE OF EXAM: 02/18/2022 COMPARISON: 02/15/2022 HISTORY: Short of breath TECHNIQUE: Single view FINDINGS: Heart and mediastinum are normal. Lungs are clear. Diaphragm is normal. Bony thorax is inta ct. IMPRESSION: Normal chest. There is clearing of the pleural reaction and subsegmental atelectasis at t he lung bases compared to old exam.
[2022-02-18 02:34] VITALS: BP 144/84; PULSE 78; RESP 18; TEMP 98
== END 2022-02-18 02:33 | disposition home or self-care (01) ==
LOC: EC 21:44
DX: I48.20 Chronic atrial fibrillation, unspecified (principal); J44.9 Chronic obstructive pulmonary disease, unspecified; I10 Essential (primary) hypertension; Z88.8 Allergy status to other drugs, medicaments and biological substances; Z91.018 Allergy to other foods
CPT/HCPCS: 36415; 71045; 80053; 83735; 83880; 84484; 85025; 85610; 85730; 93005; 99285

== ENCOUNTER 2022-04-17 08:14 | Emergency (ER) | payer OTHER ==
[2022-04-17 08:21] VITALS: BP 142/92; PULSE 87; RESP 18; TEMP 97.5
--- NOTE | 2022-04-17 08:44 | ED ---
General Adult HPI - General Chief complaint: Skin/Abscess/Foreign Body Stated complaint: med reaction Time Seen by Provider: 04/17/22 08:15 Source: patient, RN notes reviewed, old records reviewed Mode of arrival: ambulatory Limitations: no limitations - History of Present Illness Initial comments: This is a 76-year-old male presents emergency department stating that after he was using an [id number] arthritis medication for his ankle pain he started developing a rash per patient states she went to his neurobiologist and he was prescribed some hydrocortisone for the rash. Patient states he started using vacation on and the rash is looking better but he wanted to have it checked out to make sure it wasn't infected. Patient states the redness is going down and the rash seems to be drying up and scabbing over. Patient states he definitively sees improvement of the rash since . Patient denies any fever chills per patient denies any other symptoms at this time. - Related Data Home Medications Medication Instructions Recorded Confirmed HYDROcodone/APAP 10-325MG [[place] 1 tab PO Q4H PRN 11/23/21 01/12/22 10-325] Apixaban [Eliquis] 5 mg PO BID 01/12/22 01/12/22 Atorvastatin [Lipitor] 20 mg PO HS 01/12/22 01/12/22 Previous Rx's Medication Instructions Recorded Flecainide [Tambocor] 50 mg PO Q12HR #60 tab 01/14/22 Furosemide [Lasix] 20 mg PO DAILY #30 tab 01/14/22 Metoprolol Tartrate [Lopressor] 75 mg PO BID #180 tab 01/14/22 Furosemide [Lasix] 20 mg PO DAILY #20 tab 02/15/22 Allergies Allergy/AdvReac Type Severity Reaction Status Date / Time lovastatin Allergy Muscle Verified 04/17/22 08:21 Weakness sesame oil Allergy Anaphylaxis Verified 04/17/22 08:21 simvastatin Allergy Muscle Verified 04/17/22 08:21 Weakness Review of Systems ROS Statement: Those systems with pertinent positive or pertinent negative responses have been documented in the HPI. ROS Other: All systems not noted in ROS Statement are negative. Past Medical History Past Medical History: Asthma, Diabetes Mellitus, Hyperlipidemia, Hypertension, Osteoarthritis (OA), Pulmonary Embolus (PE), Sleep Apnea/CPAP/BIPAP Additional Past Medical History / Comment(s): uses c-pap machine, constipation due to norco., states torn left rotator cuff., states constant pain all over, hx of agent orange exposure, ptsd(pt stated if he's sleeping call his name drom door". upper rt dental bridge,hx broken nose, had shingels vaccine-not sure of date. Tinnitus. History of Any Multi-Drug Resistant Organisms: None Reported Past Surgical History: Joint Replacement Additional Past Surgical History / Comment(s): Nemesio total knees, lipoma removed, vasectomy, right rotator cuff., cataracts.lt carpal tunnel release, lt thumb sx, "holes in nemesio retina repaired Past Anesthesia/Blood Transfusion Reactions: No Reported Reaction Past Psychological History: PTSD Smoking Status: Never smoker Past Alcohol Use History: None Reported Past Drug Use History: None Reported - Past Family History Father Family Medical History: Cancer Additional Family Medical History / Comment(s): asbestos exposure General Exam - General Exam Comments Initial Comments: GENERAL Patient is well-developed and well-nourished. Patient is in mild distress. EYES Patient's pupils are equal and round. Extraocular motion is intact SKIN Unremarkable NEURO The patient is alert and oriented 3 PYSCH Patient has normal interpersonal interactions. MUSCULOSKELETAL Left foot has some small areas of mild erythema that are not warm consistent with some inflammation of the skin on the medial and anterior aspect of the ankle areas are nontender. There is no signs of streaking. Limitations: no limitations Course Vital Signs 04/17/22 08:15 Temperature 97.5 F L Pulse Rate 87 Respiratory 18 Rate Blood Pressure 142/92 O2 Sat by Pulse 98 Oximetry Disposition Clinical Impression: Dermatitis of left foot Disposition: HOME SELF-CARE Condition: Good Instructions (If sedation given, give patient instructions): Dermatitis (ED) Additional Instructions: Patient should continue using hydrocortisone. Is patient prescribed a controlled substance at d/c from ED?: No Referrals: Diamond Trejo MD [Primary Care Provider] - 1-2 days Time of Disposition: 08:44
== END 2022-04-17 08:53 | disposition home or self-care (01) ==
LOC: EC 08:14
DX: L30.9 Dermatitis, unspecified (principal); E11.9 Type 2 diabetes mellitus without complications; E78.5 Hyperlipidemia, unspecified; J45.909 Unspecified asthma, uncomplicated; I10 Essential (primary) hypertension; Z88.8 Allergy status to other drugs, medicaments and biological substances; Z91.018 Allergy to other foods

== ENCOUNTER 2022-08-16 03:50 | Emergency (ER) | payer OTHER ==
[2022-08-16 03:57] VITALS: TEMP 97.8
--- NOTE | 2022-08-16 04:16 | ED ---
SOB HPI - General Chief Complaint: Shortness of Breath Stated Complaint: Shortness of breath Time Seen by Provider: 08/16/22 04:03 Source: patient, RN notes reviewed, old records reviewed Mode of arrival: wheelchair - History of Present Illness Initial Comments: This is a 77-year-old male DF for evaluation patient Dese for evaluation of shortness of breath woke up from sleep. Patient came became very anxious after shortness of breath with Compazine recent medical history of covert blood clots etc. History of heart disease. Patient has no current chest pain accident arrival to ER patient states he feels improved from prior. No travel history or sick contacts no other complaints MD Complaint: shortness of breath, cough, anxiety -: hour(s) Radiation: back Severity: moderate Severity scale (1-10): 7 Quality: aching Consistency: intermittent, now resolved Improves With: nothing Worsens With: nothing Known History Of: COPD, congestive heart failure Context: recent URI, anxiety Associated Symptoms: denies other symptoms - Related Data Home Medications Medication Instructions Recorded Confirmed HYDROcodone/APAP 10-325MG [[place] 1 tab PO Q4H PRN 11/23/21 01/12/22 10-325] Apixaban [Eliquis] 5 mg PO BID 01/12/22 01/12/22 Atorvastatin [Lipitor] 20 mg PO HS 01/12/22 01/12/22 Previous Rx's Medication Instructions Recorded Flecainide [Tambocor] 50 mg PO Q12HR #60 tab 01/14/22 Furosemide [Lasix] 20 mg PO DAILY #30 tab 01/14/22 Metoprolol Tartrate [Lopressor] 75 mg PO BID #180 tab 01/14/22 Furosemide [Lasix] 20 mg PO DAILY #20 tab 02/15/22 Allergies Allergy/AdvReac Type Severity Reaction Status Date / Time lovastatin Allergy Muscle Verified 08/16/22 03:58 Weakness sesame oil Allergy Anaphylaxis Verified 08/16/22 03:58 simvastatin Allergy Muscle Verified 08/16/22 03:58 Weakness Review of Systems ROS Statement: Those systems with pertinent positive or pertinent negative responses have been documented in the HPI. ROS Other: All systems not noted in ROS Statement are negative. Past Medical History Past Medical History: Atrial Fibrillation, Asthma, Diabetes Mellitus, Hyperlipidemia, Hypertension, Osteoarthritis (OA), Pulmonary Embolus (PE), Sleep Apnea/CPAP/BIPAP Additional Past Medical History / Comment(s): uses c-pap machine, constipation due to norco., states torn left rotator cuff., states constant pain all over, hx of agent orange exposure, ptsd(pt stated if he's sleeping call his name drom door". upper rt dental bridge,hx broken nose, had shingels vaccine-not sure of date. Tinnitus. History of Any Multi-Drug Resistant Organisms: None Reported Past Surgical History: Joint Replacement Additional Past Surgical History / Comment(s): Nemesio total knees, lipoma removed, vasectomy, right rotator cuff., cataracts.lt carpal tunnel release, lt thumb sx, "holes in nemesio retina repaired Past Anesthesia/Blood Transfusion Reactions: No Reported Reaction Past Psychological History: PTSD Smoking Status: Never smoker Past Alcohol Use History: None Reported Past Drug Use History: None Reported - Past Family History Father Family Medical History: Cancer Additional Family Medical History / Comment(s): asbestos exposure General Exam General appearance: alert, in no apparent distress Head exam: Present: atraumatic, normocephalic, normal inspection Eye exam: Present: normal appearance, PERRL, EOMI. Absent: scleral icterus, conjunctival injection, periorbital swelling ENT exam: Present: normal exam, mucous membranes moist Neck exam: Present: normal inspection. Absent: tenderness, meningismus, lymphadenopathy Respiratory exam: Present: wheezes, decreased breath sounds, prolonged expiratory. Absent: normal lung sounds bilaterally, respiratory distress, rales, rhonchi, stridor Cardiovascular Exam: Present: tachycardia, irregular rhythm, normal heart sounds. Absent: systolic murmur, diastolic murmur, rubs, gallop, clicks GI/Abdominal exam: Present: soft, normal bowel sounds. Absent: distended, tenderness, guarding, rebound, rigid Extremities exam: Present: normal inspection, full ROM, normal capillary refill. Absent: tenderness, pedal edema, joint swelling, calf tenderness Back exam: Present: normal inspection Neurological exam: Present: alert, oriented X3, CN II-XII intact Psychiatric exam: Present: normal affect, normal mood Skin exam: Present: warm, dry, intact, normal color. Absent: rash Course Vital Signs 08/16/22 08/16/22 08/16/22 03:54 04:34 04:40 Temperature 97.8 F Pulse Rate 115 H 102 H 106 H Respiratory 18 Rate Blood Pressure 158/83 O2 Sat by Pulse 95 Oximetry 08/16/22 08/16/22 08/16/22 05:26 05:37 05:54 Temperature Pulse Rate 107 H 108 H 91 Respiratory 24 24 Rate Blood Pressure 139/114 132/96 O2 Sat by Pulse 95 96 96 Oximetry - Reevaluation(s) Reevaluation #1: 08/16/22 05:09 Medical record is reviewed Reevaluation #2: 08/16/22 06:02 patient patient symptoms improved after breathing treatment and heart rate control Reevaluation #3: 08/16/22 06:02 Patient informed results questions answered feels improved and can be discharged home Medical Decision Making - Medical Decision Making 77 male DF for evaluation patient presents today for evaluation of severe shortn ess of breath with cough congestion, patient having difficulty catching his breath which awoke him from sleep like his heart was racing with history of atrial fibrillation. Patient reiterates he symptoms urgency of blood clots and Coronavirus, No fevers. No current chest pain. Patient feels improved and can be discharged home - Lab Data Result diagrams: 08/16/22 04:31 08/16/22 04:31 Lab Results 08/16/22 08/16/22 08/16/22 Range/Units 04:31 04:31 04:31 WBC 7.5 (3.8-10.6) k/uL RBC 4.53 (4.30-5.90) m/uL Hgb 14.9 (13.0-17.5) gm/dL Hct 43.3 (39.0-53.0) % MCV 95.5 (80.0-100.0) fL MCH 32.9 (25.0-35.0) pg MCHC 34.5 (31.0-37.0) g/dL RDW 13.0 (11.5-15.5) % Plt Count 197 (150-450) k/uL MPV 8.3 Neutrophils % 61 % Lymphocytes % 27 % Monocytes % 6 % Eosinophils % 3 % Basophils % 1 % Neutrophils # 4.5 (1.3-7.7) k/uL Lymphocytes # 2.0 (1.0-4.8) k/uL Monocytes # 0.4 (0-1.0) k/uL Eosinophils # 0.2 (0-0.7) k/uL Basophils # 0.1 (0-0.2) k/uL PT 11.6 (9.0-12.0) sec INR 1.1 (<1.2) APTT 24.9 (22.0-30.0) sec Sodium 135 L (137-145) mmol/L Potassium 4.5 (3.5-5.1) mmol/L Chloride 98 (98-107) mmol/L Carbon Dioxide 25 (22-30) mmol/L Anion Gap 12 mmol/L BUN 23 H (9-20) mg/dL Creatinine 1.26 H (0.66-1.25) mg/dL Est GFR (CKD-EPI)AfAm 64 (>60 ml/min/1.73 sqM) Est GFR (CKD-EPI)NonAf 55 (>60 ml/min/1.73 sqM) Glucose 256 H (74-99) mg/dL Plasma Lactic Acid Juan Jose (0.7-2.0) mmol/L Calcium 9.1 (8.4-10.2) mg/dL Magnesium 1.8 (1.6-2.3) mg/dL Total Bilirubin 0.8 (0.2-1.3) mg/dL AST 25 (17-59) U/L ALT 23 (4-49) U/L Alkaline Phosphatase 84 (38-126) U/L Troponin I (0.000-0.034) ng/mL NT-Pro-B Natriuret Pep pg/mL Total Protein 6.9 (6.3-8.2) g/dL Albumin 4.2 (3.5-5.0) g/dL 08/16/22 08/16/22 08/16/22 Range/Units 04:31 04:31 04:31 WBC (3.8-10.6) k/uL RBC (4.30-5.90) m/uL Hgb (13.0-17.5) gm/dL Hct (39.0-53.0) % MCV (80.0-100.0) fL MCH (25.0-35.0) pg MCHC (31.0-37.0) g/dL RDW (11.5-15.5) % Plt Count (150-450) k/uL MPV Neutrophils % % Lymphocytes % % Monocytes % % Eosinophils % % Basophils % % Neutrophils # (1.3-7.7) k/uL Lymphocytes # (1.0-4.8) k/uL Monocytes # (0-1.0) k/uL Eosinophils # (0-0.7) k/uL Basophils # (0-0.2) k/uL PT (9.0-12.0) sec INR (<1.2) APTT (22.0-30.0) sec Sodium (137-145) mmol/L Potassium (3.5-5.1) mmol/L Chloride (98-107) mmol/L Carbon Dioxide (22-30) mmol/L Anion Gap mmol/L BUN (9-20) mg/dL Creatinine (0.66-1.25) mg/dL Est GFR (CKD-EPI)AfAm (>60 ml/min/1.73 sqM) Est GFR (CKD-EPI)NonAf (>60 ml/min/1.73 sqM) Glucose (74-99) mg/dL Plasma Lactic Acid Juan Jose 1.4 (0.7-2.0) mmol/L Calcium (8.4-10.2) mg/dL Magnesium (1.6-2.3) mg/dL Total Bilirubin (0.2-1.3) mg/dL AST (17-59) U/L ALT (4-49) U/L Alkaline Phosphatase (38-126) U/L Troponin I 0.013 (0.000-0.034) ng/mL NT-Pro-B Natriuret Pep 4290 pg/mL Total Protein (6.3-8.2) g/dL Albumin (3.5-5.0) g/dL - EKG Data -: EKG Interpreted by Me (EKG is A. fib RVR 101 QRS 122 QTC 422) - Radiology Data Radiology results: report reviewed (Chest x-rays negative for acute disease), image reviewed Disposition Clinical Impression: Acute exacerbation of chronic obstructive pulmonary disease, Congestive heart failure, Atrial fibrillation with RVR Disposition: HOME SELF-CARE Condition: Good Instructions (If sedation given, give patient instructions): Acute Bronchitis (ED) Is patient prescribed a controlled substance at d/c from ED?: No Referrals: None,Stated [Primary Care Provider] - 1-2 days Time of Disposition: 06:10
[2022-08-16] MEDS ORDERED: SODIUM CHLORIDE 0.9% 1,000 ML IV STA (04:17)
[2022-08-16] MEDS ORDERED: IPRATROPIUM-ALBUTEROL 3 ML NEB INHALATION STA (04:17)
[2022-08-16 04:41] LABS: Basophils # (A) 0.1 k/uL (0-0.2); Basophils % (A) 1 %; Eosinophils # (A) 0.2 k/uL (0-0.7); Eosinophils % (A) 3 %; HCT 43.3 % (39.0-53.0); HGB 14.9 gm/dL (13.0-17.5); Lymphocytes % (A) 27 %; MCH 32.9 pg (25.0-35.0); MCHC 34.5 g/dL (31.0-37.0); MCV 95.5 fL (80.0-100.0); Mean Platelet Volume 8.3; Monocytes # (A) 0.4 k/uL (0-1.0); Monocytes % (A) 6 %; Neutrophils # (A) 4.5 k/uL (1.3-7.7); Neutrophils % (A) 61 %; Platelet Count 197 k/uL (150-450); RBC 4.53 m/uL (4.30-5.90); WBC 7.5 k/uL (3.8-10.6)
--- NOTE | 2022-08-16 04:41 | XR ---
EXAMINATION TYPE: XR chest 1V portable DATE OF EXAM: 08/16/2022 COMPARISON: 02/18/2022 HISTORY: Short of breath TECHNIQUE: Single view FINDINGS: There is no heart failure nor confluent pneumonic infiltrate. There are chest leads. Costop hrenic angles are clear. IMPRESSION: No active cardiopulmonary disease. Inspiration decreased compared to the old exam.
[2022-08-16 04:51] LABS: Albumin 4.2 g/dL (3.5-5.0); Calcium 9.1 mg/dL (8.4-10.2); INR 1.1 (<1.2); Magnesium 1.8 mg/dL (1.6-2.3); Partial Thromboplastin Time 24.9 sec (22.0-30.0); Potassium 4.5 mmol/L (3.5-5.1); Prothrombin Time 11.6 sec (9.0-12.0); Total Bilirubin 0.8 mg/dL (0.2-1.3); Total Protein 6.9 g/dL (6.3-8.2)
[2022-08-16] MEDS ORDERED: MORPHINE SULFATE 4 MG/ML SYRINGE IVP STA (05:07)
[2022-08-16] MEDS ORDERED: LORazepam 2 MG/ML INJ IV STA (05:07)
[2022-08-16] MEDS ORDERED: DEXAMETHASONE SOD PHOSPHATE 10 MG/ML 1 ML VIAL IVP STA (05:07)
[2022-08-16 05:38] VITALS: BP 132/96
[2022-08-16 05:55] VITALS: PULSE 91
[2022-08-16 06:21] VITALS: RESP 20
== END 2022-08-16 06:21 | disposition home or self-care (01) ==
LOC: EC 03:50
DX: J44.1 Chronic obstructive pulmonary disease with (acute) exacerbation (principal); I48.91 Unspecified atrial fibrillation; E11.9 Type 2 diabetes mellitus without complications; E78.5 Hyperlipidemia, unspecified; I11.0 Hypertensive heart disease with heart failure; I50.9 Heart failure, unspecified; Z86.711 Personal history of pulmonary embolism; Z88.8 Allergy status to other drugs, medicaments and biological substances; Z91.048 Other nonmedicinal substance allergy status; Z79.01 Long term (current) use of anticoagulants; Z79.899 Other long term (current) drug therapy
CPT/HCPCS: 36415; 94640; 93005; 83880; 80053; 83605; 83735; 84484; 85025; 85610; 85730; 71045; 99285; 96374; 96375; J2060; J1100

== ENCOUNTER 2022-09-15 08:59 | Day surgery (SDC) | payer OTHER ==
[2022-09-14 12:14] VITALS: BMI 35.2
[~2022-09-15 08:59] MED LIST changes: -DEXAMETHASONE SOD PHOS (MDV) 100 MG/10 ML VIAL ONE; -DEXAMETHASONE SOD PHOSPHATE 10 MG/ML 1 ML VIAL IV ONE; -DEXAMETHASONE SOD PHOSPHATE 4 MG/ML 1 ML VIAL IV ONE; -FAMOTIDINE 20 MG/2 ML VIAL IV ONE; -HYDROmorphone 1 MG/ML 1 ML SYRINGE IVP ONE; -INSULIN ASPART 100 UNIT/ML 1 ML 10 ML VIAL SQ ONE; -IV FLUID CONTINUATION 1,000 ML IV ONE; -LACTATED RINGERS 1,000 ML IV ONE; +LACTATED RINGERS 1,000 ML IV SCH; -LIDOCAINE 1% INJ 10MG/ML (20 ML MDV) ONE; -LIDOCAINE 1%-EPI 1:100,000 30 ML VIAL SUBMUCOSAL ONE; -MIDAZOLAM 2 MG/2 ML VIAL IVP ONE; -MIDAZOLAM 2 MG/2 ML VIAL ONE; -ONDANSETRON 4 MG/2 ML VIAL IVP ONE; -PROPOFOL 10 MG/ML 20 ML VIAL IV ONE; +SODIUM CHLORIDE 0.9% 1,000 ML IV SCH; -SUCCINYLCHOLINE CHLORIDE VIAL 200 MG/10 ML VIAL IV ONE; -ceFAZolin 1,000 MG in DEXTROSE/WATER 1 50ML.BAG IV ONE; -fentaNYL (PF) 50 MCG/ML 2 ML AMP ONE
[2022-09-15 09:44] LABS: Glucose,Whole Blood 169 mg/dL (70-110)
[2022-09-15 09:47] VITALS: TEMP 97.9
[2022-09-15] MEDS ORDERED: LIDOCAINE 2% INJ 20 MG/ML (2 ML VIAL) ONE (10:20)
[2022-09-15] MEDS ORDERED: PROPOFOL 10 MG/ML 20 ML VIAL IV ONE (10:20)
[2022-09-15 11:00] VITALS: RESP 16
--- NOTE | 2022-09-15 11:48 | PCN ---
PROCEDURE NOTE PROCEDURES PERFORMED: Transesophageal echocardiogram. INDICATIONS: Persistent atrial fibrillation to rule out intracardiac thrombus prior to cardioversion. PROCEDURE NOTE: After obtaining informed consent, transesophageal echocardiogram was performed in left lateral position using an Omniplane probe. Local and IV sedation were obtained by the mold forms builder. The patient tolerated the procedure well without any obvious immediate complications. FINDINGS: 1. There is no intracardiac thrombus within the left atrial appendage, left atrium, right atrium, right ventricular, or left ventricle. 2. Left atrium appears mildly enlarged. 3. Right atrium and right ventricle seen within normal limits. 4. Left ventricle has normal size, shows diffuse global hypokinesis with moderate LV dysfunction with an ejection fraction of 40%. Mitral valve is anatomically normal. There is [id number] central mitral regurgitation noted, tricuspid valve shows moderate tricuspid regurgitation. 5. Aortic valve shows mild aortic regurgitation. There is no evidence of left-to- right shunt by color-flow Doppler or [id number] shunt via agitated saline contrast study. CONCLUSIONS: 1. No intracardiac thrombus within the left atrial appendage. 2. Ncpibmbj-ft-yhigrk mitral regurgitation. 3. Moderate left ventricular systolic dysfunction. PLAN: The patient will undergo cardioversion. MMODL / IJN: [id number] /
--- NOTE | 2022-09-15 11:55 | PCN ---
PROCEDURE NOTE PROCEDURE PERFORMED: Cardioversion. INDICATIONS: Persistent atrial fibrillation. PROCEDURE NOTE: After obtaining informed consent, electrical cardioversion was performed using 120 and 150 joules of synchronized DC current and the patient converted to sinus rhythm following the 2nd shock. He will continue his anticoagulation. We have ruled out an intracardiac thrombus and ensured that the patient was taking anticoagulant regularly. RAND / LUZ ELENAN: [id number] /
[2022-09-15 12:44] VITALS: PULSE 72
[2022-09-15 12:54] VITALS: BP 121/76
== END 2022-09-15 12:30 | disposition home or self-care (01) ==
LOC: CATHCVL 08:59
PROVIDERS: ATTEND Internal Medicine Cardiovascular Disease
DX: I48.11 Longstanding persistent atrial fibrillation (principal); E11.9 Type 2 diabetes mellitus without complications; I10 Essential (primary) hypertension; F17.210 Nicotine dependence, cigarettes, uncomplicated
CPT/HCPCS: 93312; 93320; 93325; 92960; J2704; J2001

== ENCOUNTER → 2022-11-19 | Outpatient (CLI) | payer OTHER ==
[2022-11-19 14:42] LABS: HCT 40.7 % (39.6-50.0); HGB 13.5 g/dL (13.0-17.0); MCH 31.8 pg (27.0-32.0); MCHC 33.2 g/dL (32.0-37.0); Mean Platelet Volume 9.9 fL (9.5-12.2); NRBC Per 100 WBC 0 /100 WBCS (0.0-0.0); Platelet Count 209 X 10*3/uL (140-440); RBC 4.24 X 10*6/uL (4.40-5.60); RDW 12.3 % (11.5-14.5); WBC 6.07 X 10*3/uL (4.50-10.00)
[2022-11-19 18:45] LABS: % Iron Saturation 27.76 (15.00-50.00); African American GFR (CKD) 68.2 (60.0-200.0); Albumin 4.3 g/dL (3.8-4.9); Albumin/Globulin Ratio 1.59 (1.60-3.17); Anion Gap 12.1 mmol/L (10.00-18.00); BUN/Creat Ratio 13.33 Ratio (12.00-20.00); Calcium 9.3 mg/dL (8.7-10.3); Carbon Dioxide 25.6 mmol/L (20.0-27.5); Globulin 2.7 g/dL (1.6-3.3); Magnesium 1.8 mg/dL (1.5-2.4); Non-African American GFR(CKD) 58.8 (60.0-200.0); Phosphorus 2.7 mg/dL (2.4-5.1); Potassium 4.8 mmol/L (3.5-5.5); Total Bilirubin 0.3 mg/dL (0.30-1.20); Uric Acid 3.5 mg/dL (3.7-8.7)
[2022-11-19 19:00] LABS: Appearance,Urine Clear (Clear); Bilirubin,Urine Negative (Negative); Blood,Urine Negative (Negative); Color,Urine Yellow (Yellow); Ketones,Urine Trace mg/dL (Negative); Nitrite,Urine Negative (Negative); PH, Urine 5.5 (5.0-8.0); Specific Gravity,Urine 1.024 (1.001-1.030); Urobilinogen,Urine 0.2 (0.2,1.0)
[2022-11-19 19:38] LABS: Ferritin 3.7 ng/mL (22.0-322.0)
== END | disposition home or self-care (01) ==
LOC: LABWHC1 10:36
PROVIDERS: ATTEND Nurse Practitioner Family
DX: N25.81 Secondary hyperparathyroidism of renal origin (principal); N39.0 Urinary tract infection, site not specified; E55.9 Vitamin D deficiency, unspecified; M10.9 Gout, unspecified; D63.1 Anemia in chronic kidney disease; N18.9 Chronic kidney disease, unspecified
CPT/HCPCS: 36415; 80053; 81003; 82043; 82306; 82570; 82728; 83540; 83550; 83735; 83970; 84100; 84550; 85027

== ENCOUNTER → 2023-03-01 | Outpatient (CLI) | payer OTHER ==
[2023-03-01 14:06] LABS: ALT 53 U/L (10-49); AST 37 U/L (14-35); African American GFR (CKD) 68.1 (60.0-200.0); Albumin 4.5 g/dL (3.8-4.9); Albumin/Globulin Ratio 1.73 (1.60-3.17); Alkaline Phosphatase 60 U/L (41-126); BUN/Creat Ratio 11.42 Ratio (12.00-20.00); Blood Urea Nitrogen 13.7 mg/dL (9.0-27.0); Calcium 9.6 mg/dL (8.7-10.3); Carbon Dioxide 26.7 mmol/L (20.0-27.5); Chloride 98 mmol/L (96-109); Globulin 2.6 g/dL (1.6-3.3); Glucose 253 mg/dL (70-110); LDL Cholesterol,Calculated 98.6 mg/dL (0.0-131.0); Non-African American GFR(CKD) 58.8 (60.0-200.0); Potassium 4.3 mmol/L (3.5-5.5); Sodium 137 mmol/L (135-145); Total Protein 7.1 g/dL (6.2-8.2)
== END | disposition home or self-care (01) ==
LOC: LABWHC1 07:03
PROVIDERS: ATTEND Internal Medicine Endocrinology, Diabetes & Metabolism
DX: E11.65 Type 2 diabetes mellitus with hyperglycemia (principal)
CPT/HCPCS: 36415; 80053; 80061; 82043; 82570; 83036; 84443

== ENCOUNTER → 2023-05-02 | Outpatient (CLI) | payer OTHER ==
[2023-05-02 12:21] LABS: ALT 49 U/L (10-49); AST 27 U/L (14-35); Albumin 4.2 d/dL (3.8-4.9); Albumin/Globulin Ratio 1.75 Ratio (1.60-3.17); Alkaline Phosphatase 50 U/L (41-126); BUN/Creat Ratio 12.09 Ratio (12.00-20.00); Blood Urea Nitrogen 13.3 mg/dL (9.0-27.0); Calcium 9.1 mg/dL (8.7-10.3); Carbon Dioxide 24.3 mmol/L (21.6-31.8); Chloride 100 mmol/L (96-109); Chol/HDL Ratio 3.65 Ratio; Globulin 2.4 d/dL (1.6-3.3); Glucose 257 mg/dL (70-110); Potassium 4.4 mmol/L (3.5-5.5); Sodium 137 mmol/L (135-145); Total Bilirubin 0.6 mg/dL (0.3-1.2); Total Protein 6.6 d/dL (6.2-8.2)
== END | disposition home or self-care (01) ==
LOC: LABWHC1 07:04
PROVIDERS: ATTEND Internal Medicine Endocrinology, Diabetes & Metabolism
DX: E11.65 Type 2 diabetes mellitus with hyperglycemia (principal)
CPT/HCPCS: 36415; 80053; 80061; 82043; 82570; 83036; 84443

== ENCOUNTER → 2023-05-31 | Outpatient (CLI) | payer OTHER ==
[2023-05-31 19:50] LABS: ALT 43 U/L (10-49); AST 25 U/L (14-35); Albumin 4.3 d/dL (3.8-4.9); Albumin/Globulin Ratio 1.87 Ratio (1.60-3.17); Alkaline Phosphatase 60 U/L (41-126); BUN/Creat Ratio 13.67 Ratio (12.00-20.00); Blood Urea Nitrogen 16.4 mg/dL (9.0-27.0); Calcium 9.5 mg/dL (8.7-10.3); Carbon Dioxide 24.4 mmol/L (21.6-31.8); Chloride 100 mmol/L (96-109); Globulin 2.3 d/dL (1.6-3.3); Glucose 383 mg/dL (70-110); Potassium 4.6 mmol/L (3.5-5.5); Sodium 136 mmol/L (135-145); Total Bilirubin 0.5 mg/dL (0.3-1.2); Total Protein 6.6 d/dL (6.2-8.2)
[2023-05-31 21:32] LABS: HCT 42.6 % (39.6-50.0); HGB 14.5 d/dL (13.0-17.0); MCH 32.6 pg (27.0-32.0); MCV 95.7 FL (80.0-97.0); Mean Platelet Volume 10.8 FL (9.5-12.2); NRBC Per 100 WBC 0 X 10*3/uL (0.00-0.01); Platelet Count 187 X 10*3/uL (140-440); RBC 4.45 X 10*6/uL (4.40-5.60); RDW 12.4 % (11.5-14.5); WBC 5.04 X 10*3/uL (4.50-10.00)
== END | disposition home or self-care (01) ==
LOC: LABWHC1 13:52
PROVIDERS: ATTEND Internal Medicine Cardiovascular Disease
DX: I48.20 Chronic atrial fibrillation, unspecified (principal)
CPT/HCPCS: 36415; 80053; 85027

== ENCOUNTER → 2023-06-27 | Outpatient (CLI) | payer OTHER | END | disposition home or self-care (01) | LOC: LABWHC1 08:15 | PROVIDERS: ATTEND Internal Medicine | DX: Z53.9 Procedure and treatment not carried out, unspecified reason (principal) ==

== ENCOUNTER → 2023-07-25 | Outpatient (CLI) | payer OTHER ==
[2023-07-25 08:18] VITALS: BP 166/101; PULSE 82; RESP 16
--- NOTE | 2023-07-25 14:34 | P.PAINPG ---
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 Pt states pain level is provoked at 10 /10 in intensity, constant, localized in the cervical spine and axial joints, sharp in character without shooting pain. Pain is provoked by cold weather. Pain is alleviated by PT years ago, hot showers, repositioning and rest. PMH: OA, aFib, Asthma, DM II, Hyperlipidemia, HTN, PE, TIM, PTSD PSH: BL Total Knee Replacement, Lipoma Resection, Vasectomy, R RCT Repair, Cataracts Removal, L CTR, L Thumb SUrgery, Nasal Bridge Repair SH: Negative x3. Agent [place] Exposure FH: Fa- Lung CA secondary to Asbestos Exposure All: See list Meds: See list REVIEW OF ORGAN SYSTEMS: CONSTITUTIONAL: No fevers or chills. No recent weight loss. NEUROLOGICAL: + numbness and tingling along the distal extremities. No seizure disorders or headaches. MUSCULOSKELETAL: + pain PSYCHIATRIC: Denies current depression or suicidal though ts. Physical Examinations : Constitutional : Cooperative , not in acute distress . Neurologic : Cranial nerve II to XII intact. No focal neurological deficits. Psychiatric : alert & oriented x 3. Matching mood & appropriate affect. Judgment & insight intact. Musculoskeletal : Cervical Spine Motor strength in the deltoid and biceps: Normal right side. Normal Left side Motor strength biceps and the wrist extensors: Normal right side . Normal left side Motor strength in the triceps muscle: Normal right side. Normal left side Deep tendon reflexes: Normal at the biceps. Normal at Brachioradialis. Normal at triceps Vertebral body tenderness to deep palpation over Cervical facet loading test: positive bilaterally Spurling test: positive bilaterally Neck distraction test: positive bilaterally Volodymyr sign: positive bilaterally Lumbar spine Motor strength lower extremities ,thigh and legs 5/5 Right side , 5/5 Left side Deep tendon reflexes : Normal Knee Jerk. Normal Ankle Jerk Vertebral body tenderness over Gil Test positive Lumbar facet Loading Test: positive Right / positive Left Range of motion of the lumbar spine Flexion 30 degrees, extension 10 degrees Straight Leg Raise test: Left/ Right positive at degree Jackie test: positive right / positive left. Severe tenderness over the Sacroiliac joint on the Right / Left sides Gaenslen test: positive bilaterally Seated flexion test: positive bilaterally. Sacral spine : Severe tenderness over the Sacroiliac joint: right side / left side Range of motion: Flexion of the lumbar spine <60 degrees Range of motion: Extension of the lumbar spine <20 degrees Gaenslen's Test positive Joselo's Test positive Jackie test: positive right side / left side Thigh Thrust Test Sacral Thrust Test Imaging: None on file Assessment/ Plan : Poly arthralgias Recommendation of RONA but pt disinterested at this time. All questions answered. I have spent greater than 30 minutes on patient care today. Dr Locke was available by phone for the evaluation of this patient. The time was used to review the medical records including relevant urine studies and Prescription history (MAPs), review of the available imaging, evaluation and examination of the patient, coordination of care with the medical staff and if applicable referring physicians, as well as creation of the medical record PQRS Narrative: Smoking Status Former smoker Home Medications: Ambulatory Orders HYDROcodone/APAP 10-325MG [[place] 10-325] 1 tab PO Q4H PRN 11/23/21 Apixaban [Eliquis] 5 mg PO BID 01/12/22 Cholecalciferol [Vitamin D3 (25 Mcg = 1000 Iu)] 50 mcg PO DAILY 09/14/22 Cyanocobalamin (Vitamin B-12) [Vitamin B-12] 1,000 mcg PO DAILY 09/14/22 Flecainide [Tambocor] 100 mg PO Q12HR 09/14/22 Furosemide [Lasix] 20 mg PO HS 09/14/22 Metoprolol Succinate (ER) [Toprol Xl] 100 mg PO DAILY 09/14/22 Omeprazole 20 mg PO DAILY 09/14/22 Rosuvastatin Calcium 5 mg PO DAILY 09/14/22 bisacodyL [Dulcolax] 5 mg PO BID 09/14/22 diphenhydrAMINE [Benadryl] 25 mg PO HS PRN 09/14/22 lisinopriL [Zestril] 5 mg PO DAILY 09/14/22 metFORMIN HCL 1,000 mg PO BID 09/14/22 Controlled Substance Measures - Controlled Substance Measures Is patient prescribed a controlled substance at discharge?: No
== END ==
LOC: PNWHC3 07:21
PROVIDERS: ATTEND Specialist
DX: M13.0 Polyarthritis, unspecified (principal); I48.91 Unspecified atrial fibrillation; E11.9 Type 2 diabetes mellitus without complications; E78.5 Hyperlipidemia, unspecified; I10 Essential (primary) hypertension; G47.33 Obstructive sleep apnea (adult) (pediatric); F43.10 Post-traumatic stress disorder, unspecified; J45.909 Unspecified asthma, uncomplicated; Z86.718 Personal history of other venous thrombosis and embolism; Z87.891 Personal history of nicotine dependence; Z79.899 Other long term (current) drug therapy; Z91.018 Allergy to other foods; Z88.8 Allergy status to other drugs, medicaments and biological substances; Z79.84 Long term (current) use of oral hypoglycemic drugs; Z79.01 Long term (current) use of anticoagulants
CPT/HCPCS: 99211

== ENCOUNTER 2023-08-21 05:01 | Emergency (ER) | payer OTHER ==
[2023-08-21 05:31] VITALS: BP 141/89; PULSE 87; RESP 18; TEMP 98.4
[2023-08-21] MEDS ORDERED: HYDROcodone/APAP 10-325MG 1 EACH TAB PO ONE (05:44)
--- NOTE | 2023-08-21 05:44 | ED ---
Recheck HPI - General Chief Complaint: Recheck/Abnormal Lab/Rx Stated Complaint: Medication Refill Time Seen by Provider: 08/21/23 05:11 Source: patient, RN notes reviewed, old records reviewed Mode of arrival: ambulatory Limitations: no limitations - History of Present Illness Initial Comments: This is a 78-year-old male who is here for medication refill today. Patient states he contacted his pain medications filled as an outpatient presents to the ER for evaluation of need for medication refill MD Complaint: medication refill request -: days(s) Returns Today for: persistent/worsening pain related to initial visit Symptoms Since Prior Visit: worsening pain Context: ran out of medication Treatments Prior to Arrival: Given Pain Meds on - Related Data Home Medications Medication Instructions Recorded Confirmed HYDROcodone/APAP 10-325MG [[place] 1 tab PO Q4H PRN 11/23/21 07/25/23 10-325] Apixaban [Eliquis] 5 mg PO BID 01/12/22 07/25/23 Cholecalciferol [Vitamin D3 (25 50 mcg PO DAILY 09/14/22 07/25/23 Mcg = 1000 Iu)] Cyanocobalamin (Vitamin B-12) 1,000 mcg PO DAILY 09/14/22 07/25/23 [Vitamin B-12] Flecainide [Tambocor] 100 mg PO Q12HR 09/14/22 07/25/23 Furosemide [Lasix] 20 mg PO HS 09/14/22 07/25/23 Metoprolol Succinate (ER) [Toprol 100 mg PO DAILY 09/14/22 07/25/23 Xl] Omeprazole 20 mg PO DAILY 09/14/22 07/25/23 Rosuvastatin Calcium 5 mg PO DAILY 09/14/22 07/25/23 bisacodyL [Dulcolax] 5 mg PO BID 09/14/22 07/25/23 diphenhydrAMINE [Benadryl] 25 mg PO HS PRN 09/14/22 07/25/23 lisinopriL [Zestril] 5 mg PO DAILY 09/14/22 07/25/23 metFORMIN HCL 1,000 mg PO BID 09/14/22 07/25/23 Previous Rx's Medication Instructions Recorded HYDROcodone/APAP 10-325MG [[place] 1 tab PO Q6H PRN #28 tab 08/21/23 10-325] HYDROcodone/APAP 5-325MG [[place] 1 tab PO Q6HR PRN 3 Days #12 tab 08/28/23 5-325] Allergies Allergy/AdvReac Type Severity Reaction Status Date / Time lovastatin Allergy Muscle Verified 08/21/23 05:14 Weakness sesame oil Allergy Anaphylaxis Verified 08/21/23 05:14 simvastatin Allergy Muscle Verified 08/21/23 05:14 Weakness Review of Systems ROS Statement: Those systems with pertinent positive or pertinent negative responses have been documented in the HPI. ROS Other: All systems not noted in ROS Statement are negative. Past Medical History Past Medical History: Atrial Fibrillation, Asthma, Diabetes Mellitus, Hyperlipidemia, Hypertension, Osteoarthritis (OA), Pulmonary Embolus (PE), Sleep Apnea/CPAP/BIPAP Additional Past Medical History / Comment(s): wt loss of 50#,has bruising to left leg from fall,uses c-pap machine, constipation due to norco., states torn left rotator cuff., states constant pain all over, hx of agent orange exposure, ptsd-touch foot if need to arouse pt-don't stand over pt. upper rt dental bridge,hx broken nose, had shingels vaccine-not sure of date. Tinnitus,covid infection caused blood clots in lungs 2020 History of Any Multi-Drug Resistant Organisms: None Reported Past Surgical History: Joint Replacement Additional Past Surgical History / Comment(s): Nemesio total knees, lipoma removed, vasectomy, right rotator cuff., cataracts.lt carpal tunnel release, lt thumb sx, "holes in nemesio retina repaired,deviated septal repair Past Anesthesia/Blood Transfusion Reactions: No Reported Reaction Past Psychological History: PTSD Smoking Status: Former smoker Past Alcohol Use History: None Reported Past Drug Use History: None Reported - Past Family History Father Family Medical History: Cancer Mother Additional Family Medical History / Comment(s): at age 40,had OK in her sleep and cirrhosis of liver General Exam Limitations: no limitations General appearance: alert, in no apparent distress Head exam: Present: atraumatic, normocephalic, normal inspection Eye exam: Present: normal appearance, PERRL, EOMI. Absent: scleral icterus, conjunctival injection, periorbital swelling ENT exam: Present: normal exam, mucous membranes moist Neck exam: Present: normal inspection. Absent: tenderness, meningismus, lymphadenopathy Respiratory exam: Present: normal lung sounds bilaterally. Absent: respiratory distress, wheezes, rales, rhonchi, stridor Cardiovascular Exam: Present: regular rate, normal rhythm, normal heart sounds. Absent: systolic murmur, diastolic murmur, rubs, gallop, clicks GI/Abdominal exam: Present: soft, normal bowel sounds. Absent: distended, tenderness, guarding, rebound, rigid Extremities exam: Present: normal inspection, full ROM, normal capillary refill. Absent: tenderness, pedal edema, joint swelling, calf tenderness Back exam: Present: normal inspection Neurological exam: Present: alert, oriented X3, CN II-XII intact Psychiatric exam: Present: normal affect, normal mood Skin exam: Present: warm, dry, intact, normal color. Absent: rash Course Vital Signs 08/21/23 05:12 Temperature 98.4 F Pulse Rate 87 Respiratory 18 Rate Blood Pressure 141/89 O2 Sat by Pulse 96 Oximetry - Reevaluation(s) Reevaluation #1: Medical records reviewed Reevaluation #2: Patient symptoms improved Reevaluation #3: Patient informed results questions answered Reevaluation #4: Was pt. sent in by a medical professional or institution (, PA, ROSS FURNACE OPERATOR, urgent care, hospital, or longterm...) When possible be specific @ -no Did you speak to anyone other than the patient for history (EMS, parent, family, police, friend...)? What history was obtained from this source @ -no Did you review nursing and triage notes (agree or disagree)? Why? @ -agree Are old charts reviewed (outside hosp., previous admission, EMS record, old EKG, old radiological studies, urgent care reports/EKG's, longterm records)? Report findings @ -yes Differential Diagnosis (chest pain, altered mental status, abdominal pain women, abdominal pain men, vaginal bleeding, weakness, fever, dyspnea, syncope, headache, dizziness, GI bleed, back pain, seizure, CVA, palpatations, mental health, musculoskeletal)? @ -prior EKG interpreted by me (3pts min.). @ -no X-rays interpreted by me (1pt min.). @ -no CT interpreted by me (1pt min.). @ -no U/S interpreted by me (1pt. min.). @ -no What testing was considered but not performed or refused? (CT, X-rays, U/S, labs)? Why? @ -none What meds were considered but not given or refused? Why? @ -none Did you discuss the management of the patient with other professionals (professionals i.e. , PA, ROSS FURNACE OPERATOR, lab, RT, psych nurse, social sciences lecturer, lunch wagon operator, teacher, chief sustainability officer, case planner)? Give summary @ -no Was smoking cessation discussed for >3mins.? @ -no Was critical care preformed (if so, how long)? @ -no Were there social determinants of health that impacted care today? How? (Homelessness, low income, unemployed, alcoholism, drug addiction, transportation, low edu. Level, literacy, decrease access to med. care, [facility], rehab)? @ -none Was there de-escalation of care discussed even if they declined (Discuss DNR or withdrawal of care, Hospice)? DNR status @ -no What co-morbidities impacted this encounter? (DM, HTN, Smoking, COPD, CAD, Cancer, CVA, ARF, Chemo, Hep., AIDS, mental health diagnosis, sleep apnea, morbid obesity)? @ -none Was patient admitted / discharged? Hospital course, mention meds given and route, prescriptions, significant lab abnormalities, going to OR and other pertinent info. @ - 78 male to the emergency department for evaluation medication refill. Patient will medication refill here in the ER and can be discharged home Discharge Undiagnosed new problem with uncertain prognosis? @ -no Drug Therapy requiring intensive monitoring for toxicity (Heparin, Nitro, Insulin, Cardizem)? @ -no Were any procedures done? @ -no Diagnosis/symptom? @ -Medical decision refill Acute, or Chronic, or Acute on Chronic? @ -Acute Uncomplicated (without systemic symptoms) or Complicated (systemic symptoms)? @ -Complicated Side effects of treatment? @ -no Exacerbation, Progression, or Severe Exacerbation? @ -exacerbation Poses a threat to life or bodily function? How? (Chest pain, [place], [place], pneumonia, PE, COPD, DKA, ARF, appy, cholecystitis, CVA, Diverticulitis, Homicidal, Suicidal, threat to staff... and all critical care pts) @ -yes Medical Decision Making - Medical Decision Making 78 male to the emergency department for evaluation medication refill. Patient will medication refill here in the ER and can be discharged home Disposition Clinical Impression: Encounter for medication refill Disposition: HOME SELF-CARE Condition: Fair Instructions (If sedation given, give patient instructions): Medicine Refill (ED) Prescriptions: HYDROcodone/APAP 10-325MG [[place] 10-325] 1 tab PO Q6H PRN #28 tab PRN Reason: Pain Is patient prescribed a controlled substance at d/c from ED?: Yes When asked, does pt state using other controlled substances?: Yes If prescribed controlled substance>3 days was MAPS reviewed?: Yes If opioid is for acute pain is fill amount 7 days or less?: Yes If Rx opioid, was Start Talking consent form obtained?: Yes Referrals: Diamond Trejo MD [Primary Care Provider] - 1-2 days Time of Disposition: 05:45
== END 2023-08-21 05:58 | disposition home or self-care (01) ==
LOC: EC 05:01
DX: Z76.0 Encounter for issue of repeat prescription (principal); E11.36 Type 2 diabetes mellitus with diabetic cataract; I10 Essential (primary) hypertension; J45.909 Unspecified asthma, uncomplicated; I48.91 Unspecified atrial fibrillation; E78.5 Hyperlipidemia, unspecified; Z79.84 Long term (current) use of oral hypoglycemic drugs; Z79.01 Long term (current) use of anticoagulants; Z79.899 Other long term (current) drug therapy; Z87.891 Personal history of nicotine dependence; Z86.711 Personal history of pulmonary embolism; Z86.16 Personal history of COVID-19
CPT/HCPCS: 99283

== ENCOUNTER 2023-08-28 05:54 | Emergency (ER) | payer OTHER ==
[2023-08-28 06:41] VITALS: BP 180/100; PULSE 89; RESP 18; TEMP 97.8
--- NOTE | 2023-08-28 06:42 | ED ---
General Adult HPI - General Chief complaint: Recheck/Abnormal Lab/Rx Stated complaint: Med Refill Time Seen by Provider: 08/28/23 06:03 Source: patient, RN notes reviewed Mode of arrival: wheelchair Limitations: no limitations - History of Present Illness Initial comments: 78-year-old male presents emergency Department requesting refill of his [place] 10/325. Patient was seen here 1 week ago and received medication refill. Patient has not follow-up was primary care physician or pain management. The patient states that his pain management physician retired and was notified 3 months ago. Patient follow-up with pain management here but he refused injections and other treatments stating that he only wants his pain meds. Patient has not discussed as well as primary care physician. Patient offers no new injuries. Patient offers no other complaints. - Related Data Home Medications Medication Instructions Recorded Confirmed HYDROcodone/APAP 10-325MG [[place] 1 tab PO Q4H PRN 11/23/21 07/25/23 10-325] Apixaban [Eliquis] 5 mg PO BID 01/12/22 07/25/23 Cholecalciferol [Vitamin D3 (25 50 mcg PO DAILY 09/14/22 07/25/23 Mcg = 1000 Iu)] Cyanocobalamin (Vitamin B-12) 1,000 mcg PO DAILY 09/14/22 07/25/23 [Vitamin B-12] Flecainide [Tambocor] 100 mg PO Q12HR 09/14/22 07/25/23 Furosemide [Lasix] 20 mg PO HS 09/14/22 07/25/23 Metoprolol Succinate (ER) [Toprol 100 mg PO DAILY 09/14/22 07/25/23 Xl] Omeprazole 20 mg PO DAILY 09/14/22 07/25/23 Rosuvastatin Calcium 5 mg PO DAILY 09/14/22 07/25/23 bisacodyL [Dulcolax] 5 mg PO BID 09/14/22 07/25/23 diphenhydrAMINE [Benadryl] 25 mg PO HS PRN 09/14/22 07/25/23 lisinopriL [Zestril] 5 mg PO DAILY 09/14/22 07/25/23 metFORMIN HCL 1,000 mg PO BID 09/14/22 07/25/23 Previous Rx's Medication Instructions Recorded HYDROcodone/APAP 10-325MG [[place] 1 tab PO Q6H PRN #28 tab 08/21/23 10-325] Allergies Allergy/AdvReac Type Severity Reaction Status Date / Time lovastatin Allergy Muscle Verified 08/21/23 05:14 Weakness sesame oil Allergy Anaphylaxis Verified 08/21/23 05:14 simvastatin Allergy Muscle Verified 08/21/23 05:14 Weakness Review of Systems ROS Statement: Those systems with pertinent positive or pertinent negative responses have been documented in the HPI. ROS Other: All systems not noted in ROS Statement are negative. Past Medical History Past Medical History: Atrial Fibrillation, Asthma, Diabetes Mellitus, Hyperlipidemia, Hypertension, Osteoarthritis (OA), Pulmonary Embolus (PE), Sleep Apnea/CPAP/BIPAP Additional Past Medical History / Comment(s): wt loss of 50#,has bruising to left leg from fall,uses c-pap machine, constipation due to norco., states torn left rotator cuff., states constant pain all over, hx of agent orange exposure, ptsd-touch foot if need to arouse pt-don't stand over pt. upper rt dental bridge,hx broken nose, had shingels vaccine-not sure of date. Tinnitus,covid i nfection caused blood clots in lungs 2020 History of Any Multi-Drug Resistant Organisms: None Reported Past Surgical History: Joint Replacement Additional Past Surgical History / Comment(s): Nemesio total knees, lipoma removed, vasectomy, right rotator cuff., cataracts.lt carpal tunnel release, lt thumb sx, "holes in nemesio retina repaired,deviated septal repair Past Anesthesia/Blood Transfusion Reactions: No Reported Reaction Past Psychological History: PTSD Smoking Status: Former smoker Past Alcohol Use History: None Reported Past Drug Use History: None Reported - Past Family History Father Family Medical History: Cancer Mother Additional Family Medical History / Comment(s): at age 40,had [place] in her sleep and cirrhosis of liver General Exam Limitations: no limitations General appearance: alert, in no apparent distress Head exam: Present: atraumatic, normocephalic, normal inspection Respiratory exam: Present: normal lung sounds bilaterally. Absent: respiratory distress, wheezes, rales, rhonchi, stridor Cardiovascular Exam: Present: regular rate, normal rhythm, normal heart sounds. Absent: systolic murmur, diastolic murmur, rubs, gallop, clicks Course Vital Signs 08/28/23 05:57 Temperature 97.8 F Pulse Rate 89 Respiratory 18 Rate Blood Pressure 180/100 O2 Sat by Pulse 95 Oximetry Medical Decision Making - Medical Decision Making Was pt. sent in by a medical professional or institution (JOJO Bell, WEB RETAILER, urgent care, hospital, or group home...) When possible be specific @ -No Did you speak to anyone other than the patient for history (EMS, parent, family, police, friend...)? What history was obtained from this source @ -No Did you review nursing and triage notes (agree or disagree)? Why? @ -I reviewed and agree with nursing and triage notes Were old charts reviewed (outside hosp., previous admission, EMS record, old EKG, old radiological studies, urgent care reports/EKG's, group home records)? Report findings @ -Reviewed prior charts Differential Diagnosis (chest pain, altered mental status, abdominal pain women, abdominal pain men, vaginal bleeding, weakness, fever, dyspnea, syncope, headache, dizziness, GI bleed, back pain, seizure, CVA, palpatations, mental health, musculoskeletal)? @ -Chronic pain, medication refill EKG interpreted by me (3pts min.). @ -None X-rays interpreted by me (1pt min.). @ -None done CT interpreted by me (1pt min.). @ -None done U/S interpreted by me (1pt. min.). @ -None done What testing was considered but not performed or refused? (CT, X-rays, U/S, labs)? Why? @ -None What meds were considered but not given or refused? Why? @ -None Did you discuss the management of the patient with other professionals (professionals i.e. JOJO Bell, WEB RETAILER, lab, RT, psych nurse, social media specialist, senior quality engineer, teacher, compliance officer, leather case finisher)? Give summary @ -No Was smoking cessation discussed for >3mins.? @ -No Was critical care preformed (if so, how long)? @ -No Were there social determinants of health that impacted care today? How? (Homelessness, low income, unemployed, alcoholism, drug addiction, transportation, low edu. Level, literacy, decrease access to med. care, nursing home, rehab)? @ -No Was there de-escalation of care discussed even if they declined (Discuss DNR or withdrawal of care, Hospice)? DNR status @ -No What co-morbidities impacted this encounter? (DM, HTN, Smoking, COPD, CAD, Cancer, CVA, ARF, Chemo, Hep., AIDS, mental health diagnosis, sleep apnea, morbid obesity)? @ -Chronic pain Was patient admitted / discharged? Hospital course, mention meds given and route, prescriptions, significant lab abnormalities, going to OR and other pertinent info. @ -Discharge patient is advised follow-up with his PCP for medication refill or pain management as this is a chronic condition and long-term opiate pain meds. Undiagnosed new problem with uncertain prognosis? @ -No Drug Therapy requiring intensive monitoring for toxicity (Heparin, Nitro, Insulin, Cardizem)? @ -No Were any procedures done? @ -No Diagnosis/symptom? @ -Chronic pain Acute, or Chronic, or Acute on Chronic? @ -Chronic Uncomplicated (without systemic symptoms) or Complicated (systemic symptoms)? @ -Uncomplicated Side effects of treatment? @ -No Exacerbation, Progression, or Severe Exacerbation? @ -No Poses a threat to life or bodily function? How? (Chest pain, [place], [place], pneumonia, PE, COPD, DKA, ARF, appy, cholecystitis, CVA, Diverticulitis, Homicidal, Suicidal, threat to staff... and all critical care pts) @ -No Disposition Clinical Impression: Chronic pain Disposition: HOME SELF-CARE Additional Instructions: Follow-up with your PCP or pain management for medication refill . Please return to the Emergency Department if symptoms worsen or any other concerns. Is patient prescribed a controlled substance at d/c from ED?: No Referrals: Diaomnd Trejo MD [Primary Care Provider] - 1-2 days Time of Disposition: 06:41
== END 2023-08-28 06:48 | disposition home or self-care (01) ==
LOC: EC 05:54
DX: G89.29 Other chronic pain (principal); I48.91 Unspecified atrial fibrillation; I10 Essential (primary) hypertension; E78.5 Hyperlipidemia, unspecified; E11.9 Type 2 diabetes mellitus without complications; J45.909 Unspecified asthma, uncomplicated; Z87.891 Personal history of nicotine dependence; Z79.84 Long term (current) use of oral hypoglycemic drugs; Z79.899 Other long term (current) drug therapy; Z88.8 Allergy status to other drugs, medicaments and biological substances; Z91.018 Allergy to other foods; Z79.01 Long term (current) use of anticoagulants
CPT/HCPCS: 99283

== ENCOUNTER 2023-08-28 18:48 | Emergency (ER) | payer OTHER ==
[2023-08-28 19:24] VITALS: BP 157/82; PULSE 65; RESP 16; TEMP 98
--- NOTE | 2023-08-28 19:55 | ED ---
General Adult HPI - General Chief complaint: Recheck/Abnormal Lab/Rx Stated complaint: Med Refill Time Seen by Provider: 08/28/23 19:10 Source: patient Mode of arrival: ambulatory Limitations: no limitations - History of Present Illness Initial comments: Dictation was produced using Meme dictation software. please excuse any grammatical, word or spelling errors. Chief Complaint: 78-year-old male presents emergency department for medication refill History of Present Illness: 78-year-old male has history of chronic pain is here in emergency department for medication refill. Patient states he is trying to find a pain specialist or a physician to fill his pain medications he's been on his medication for years. Patient has no medical complaints. The ROS documented in this emergency department record has been reviewed and confirmed by me. Those systems with pertinent positive or negative responses have been documented in the HPI. All other systems are other negative and/or noncontributory. - Related Data Home Medications Medication Instructions Recorded Confirmed HYDROcodone/APAP 10-325MG [[place] 1 tab PO Q4H PRN 11/23/21 07/25/23 10-325] Apixaban [Eliquis] 5 mg PO BID 01/12/22 07/25/23 Cholecalciferol [Vitamin D3 (25 50 mcg PO DAILY 09/14/22 07/25/23 Mcg = 1000 Iu)] Cyanocobalamin (Vitamin B-12) 1,000 mcg PO DAILY 09/14/22 07/25/23 [Vitamin B-12] Flecainide [Tambocor] 100 mg PO Q12HR 09/14/22 07/25/23 Furosemide [Lasix] 20 mg PO HS 09/14/22 07/25/23 Metoprolol Succinate (ER) [Toprol 100 mg PO DAILY 09/14/22 07/25/23 Xl] Omeprazole 20 mg PO DAILY 09/14/22 07/25/23 Rosuvastatin Calcium 5 mg PO DAILY 09/14/22 07/25/23 bisacodyL [Dulcolax] 5 mg PO BID 09/14/22 07/25/23 diphenhydrAMINE [Benadryl] 25 mg PO HS PRN 09/14/22 07/25/23 lisinopriL [Zestril] 5 mg PO DAILY 09/14/22 07/25/23 metFORMIN HCL 1,000 mg PO BID 09/14/22 07/25/23 Previous Rx's Medication Instructions Recorded HYDROcodone/APAP 10-325MG [[place] 1 tab PO Q6H PRN #28 tab 08/21/23 10-325] HYDROcodone/APAP 5-325MG [[place] 1 tab PO Q6HR PRN 3 Days #12 tab 08/28/23 5-325] Allergies Allergy/AdvReac Type Severity Reaction Status Date / Time lovastatin Allergy Muscle Verified 08/21/23 05:14 Weakness sesame oil Allergy Anaphylaxis Verified 08/21/23 05:14 simvastatin Allergy Muscle Verified 08/21/23 05:14 Weakness Review of Systems ROS Statement: Those systems with pertinent positive or pertinent negative responses have been documented in the HPI. ROS Other: All systems not noted in ROS Statement are negative. Past Medical History Past Medical History: Atrial Fibrillation, Asthma, Diabetes Mellitus, Hyperlipidemia, Hypertension, Osteoarthritis (OA), Pulmonary Embolus (PE), Sleep Apnea/CPAP/BIPAP Additional Past Medical History / Comment(s): wt loss of 50#,has bruising to left leg from fall,uses c-pap machine, constipation due to norco., states torn left rotator cuff., states constant pain all over, hx of agent orange exposure, ptsd-touch foot if need to arouse pt-don't stand over pt. upper rt dental bridge,hx broken nose, had shingels vaccine-not sure of date. Tinnitus,covid infection caused blood clots in lungs 2020 History of Any Multi-Drug Resistant Organisms: None Reported Past Surgical History: Joint Replacement Additional Past Surgical History / Comment(s): Nemesio total knees, lipoma removed, vasectomy, right rotator cuff., cataracts.lt carpal tunnel release, lt thumb sx, "holes in nemesio retina repaired,deviated septal repair Past Anesthesia/Blood Transfusion Reactions: No Reported Reaction Past Psychological History: PTSD Smoking Status: Former smoker Past Alcohol Use History: None Reported Past Drug Use History: None Reported - Past Family History Father Family Medical History: Cancer Mother Additional Family Medical History / Comment(s): at age 40,had [place] in her sleep and cirrhosis of liver General Exam - General Exam Comments Initial Comments: PHYSICAL EXAM: General Impression: Alert and oriented x3, not in acute distress HEENT: Normocephalic atraumatic, extra-ocular movements intact, pupils equal and reactive to light bilaterally, mucous membranes moist. Cardiovascular: Heart regular rate and rhythm Chest: Able to complete full sentences, no retractions, no tachypnea Abdomen: abdomen soft, non-tender, non-distended, no organomegaly Musculoskeletal: Pulses present and equal in all extremities, no peripheral edema Motor: no focal deficits noted Neurological: CN II-XII grossly intact, no focal motor or sensory deficits noted Skin: Intact with no visualized rashes Psych: Normal affect and mood Limitations: no limitations Course Vital Signs 08/28/23 19:05 Temperature 98.0 F Pulse Rate 65 Respiratory 16 Rate Blood Pressure 157/82 O2 Sat by Pulse 96 Oximetry Medical Decision Making - Medical Decision Making Was pt. sent in by a medical professional or institution (JOJO Bell, COMMERCIAL CREDIT REVIEWER, urgent care, hospital, or fci...) When possible be specific @ -No Did you speak to anyone other than the patient for history (EMS, parent, family, police, friend...)? What history was obtained from this source @ -No Did you review nursing and triage notes (agree or disagree)? Why? @ -I reviewed and agree with nursing and triage notes Were old charts reviewed (outside hosp., previous admission, EMS record, old EKG, old radiological studies, urgent care reports/EKG's, fci records)? Report findings @ -No old charts were reviewed Differential Diagnosis (chest pain, altered mental status, abdominal pain women, abdominal pain men, vaginal bleeding, musculoskeletal, weakness, fever, dyspnea, syncope, headache, dizziness, GI bleed, back pain, seizure, CVA, palpatations, mental health)? @ -not applicable EKG interpreted by me (3pts min.). @ -None done X-rays interpreted by me (1pt min.). @ -None done CT interpreted by me (1pt min.). @ -None done U/S interpreted by me (1pt. min.). @ -None done What testing was considered but not performed or refused? (CT, X-rays, U/S, labs)? Why? @ -None What meds were considered but not given or refused? Why? @ -None Did you discuss the management of the patient with other professionals (professionals i.e. JOJO Bell, COMMERCIAL CREDIT REVIEWER, lab, RT, psych nurse, social secretary, agency owner, teacher, law enforcement officer, correctional case records supervisor)? Give summary @ -No Was smoking cessation discussed for >3mins.? @ -No Was critical care preformed (if so, how long)? @ -No Were there social determinants of health that impacted care today? How? (Homelessness, low income, unemployed, alcoholism, drug addiction, transportation, low edu. Level, literacy, decrease access to med. care, detention, rehab)? @ -No Was there de-escalation of care discussed even if they declined (Discuss DNR or withdrawal of care, Hospice)? DNR status @ -No What co-morbidities impacted this encounter? (DM, HTN, Smoking, COPD, CAD, Cancer, CVA, ARF, Chemo, Hep., AIDS, mental health diagnosis, sleep apnea, morbid obesity)? @ -None Was patient admitted / discharged? Hospital course, mention meds given and route, prescriptions, significant lab abnormalities, going to OR and other pertinent info. @ -78-year-old male presents emergency department for medication refill. Patient 3 days supply of Albion. Patient warned of the adverse effects of Albion. He is strongly urged to find outpatient provider for future medication refills. Undiagnosed new problem with uncertain prognosis? @ -No Drug Therapy requiring intensive monitoring for toxicity (Heparin, Nitro, Insulin, Cardizem)? @ -No Were any procedures done? @ -No Diagnosis/symptom? Acute, or Chronic, or Acute on Chronic? Uncomplicated (without systemic symptoms) or Complicated (systemic symptoms)? @ -Chronic pain Side effects of treatment? @ -No Exacerbation, Progression, or Severe Exacerbation? @ -No Poses a threat to life or bodily function? How? (Chest pain, USA, [place], pneumonia, PE, COPD, DKA, ARF, appy, cholecystitis, CVA, Diverticulitis, Homicidal, Suicidal, threat to staff... and all critical care pts) @ -No Disposition Clinical Impression: Chronic pain Disposition: HOME SELF-CARE Condition: Good Prescriptions: HYDROcodone/APAP 5-325MG [Al[place] 5-325] 1 tab PO Q6HR PRN 3 Days #12 tab PRN Reason: Severe Pain Is patient prescribed a controlled substance at d/c from ED?: Yes If prescribed controlled substance>3 days was MAPS reviewed?: Prescribed <3 Days Referrals: Diamond Trejo MD [Primary Care Provider] - 1-2 days Time of Disposition: 19:55
== END 2023-08-28 20:06 | disposition home or self-care (01) ==
LOC: EC 18:48
DX: G89.29 Other chronic pain (principal); I10 Essential (primary) hypertension; I48.91 Unspecified atrial fibrillation; J45.909 Unspecified asthma, uncomplicated; G47.30 Sleep apnea, unspecified; M19.90 Unspecified osteoarthritis, unspecified site; E78.5 Hyperlipidemia, unspecified; Z79.01 Long term (current) use of anticoagulants; Z79.84 Long term (current) use of oral hypoglycemic drugs; Z79.899 Other long term (current) drug therapy; Z87.891 Personal history of nicotine dependence; Z86.16 Personal history of COVID-19
CPT/HCPCS: 99282

== ENCOUNTER → 2023-09-05 | Outpatient (CLI) | payer OTHER ==
[2023-09-05 15:57] LABS: ALT 28 U/L (10-49); AST 20 U/L (14-35); Albumin 4.1 g/dL (3.8-4.9); Albumin/Globulin Ratio 1.78 Ratio (1.60-3.17); Alkaline Phosphatase 46 U/L (41-126); BUN/Creat Ratio 13.09 Ratio (12.00-20.00); Blood Urea Nitrogen 14.4 mg/dL (9.0-27.0); Calcium 9.1 mg/dL (8.7-10.3); Carbon Dioxide 27.3 mmol/L (21.6-31.8); Chloride 102 mmol/L (96-109); Chol/HDL Ratio 3.27 Ratio; Globulin 2.3 g/dL (1.6-3.3); Glucose 163 mg/dL (70-110); LDL Cholesterol,Calculated 70.4 mg/dL (0.0-131.0); Potassium 4.4 mmol/L (3.5-5.5); Sodium 138 mmol/L (135-145); Total Bilirubin 0.5 mg/dL (0.3-1.2); Total Protein 6.4 g/dL (6.2-8.2)
[2023-09-05 18:35] LABS: Microalbumin Creatinine Ratio <11 mg/g Cr (0-30)
== END | disposition home or self-care (01) ==
LOC: LABWHC1 08:18
PROVIDERS: ATTEND Internal Medicine Endocrinology, Diabetes & Metabolism
DX: E11.65 Type 2 diabetes mellitus with hyperglycemia (principal)
CPT/HCPCS: 36415; 80053; 80061; 82043; 82570; 83036; 84443

== ENCOUNTER 2023-09-06 05:28 | Emergency (ER) | payer OTHER ==
[2023-09-06 05:39] VITALS: BP 172/92; PULSE 74; RESP 16; TEMP 98
--- NOTE | 2023-09-06 06:10 | ED ---
Recheck HPI - General Chief Complaint: Recheck/Abnormal Lab/Rx Stated Complaint: Med refill Time Seen by Provider: 09/06/23 06:00 Source: patient, RN notes reviewed Mode of arrival: wheelchair Limitations: no limitations - History of Present Illness Initial Comments: 78-year-old male presents emergency Department requesting pain management, medication refill. Patient is requesting [place] 10/325. Patient was advised over 3 months ago that his pain management was retiring and he was advised to follow up with another physician he states that everyone wants to do other avenues including injections but he refuses stating that he only wants narcotic pain meds. Patient has not follow-up with PCP as directed patient has no new symptoms no new injuries - Related Data Home Medications Medication Instructions Recorded Confirmed HYDROcodone/APAP 10-325MG [[place] 1 tab PO Q4H PRN 11/23/21 07/25/23 10-325] Apixaban [Eliquis] 5 mg PO BID 01/12/22 07/25/23 Cholecalciferol [Vitamin D3 (25 50 mcg PO DAILY 09/14/22 07/25/23 Mcg = 1000 Iu)] Cyanocobalamin (Vitamin B-12) 1,000 mcg PO DAILY 09/14/22 07/25/23 [Vitamin B-12] Flecainide [Tambocor] 100 mg PO Q12HR 09/14/22 07/25/23 Furosemide [Lasix] 20 mg PO HS 09/14/22 07/25/23 Metoprolol Succinate (ER) [Toprol 100 mg PO DAILY 09/14/22 07/25/23 Xl] Omeprazole 20 mg PO DAILY 09/14/22 07/25/23 Rosuvastatin Calcium 5 mg PO DAILY 09/14/22 07/25/23 bisacodyL [Dulcolax] 5 mg PO BID 09/14/22 07/25/23 diphenhydrAMINE [Benadryl] 25 mg PO HS PRN 09/14/22 07/25/23 lisinopriL [Zestril] 5 mg PO DAILY 09/14/22 07/25/23 metFORMIN HCL 1,000 mg PO BID 09/14/22 07/25/23 Previous Rx's Medication Instructions Recorded HYDROcodone/APAP 10-325MG [[place] 1 tab PO Q6H PRN #28 tab 08/21/23 10-325] HYDROcodone/APAP 5-325MG [[place]elly 1 tab PO Q6HR PRN 3 Days #12 tab 08/28/23 5-325] Allergies Allergy/AdvReac Type Severity Reaction Status Date / Time lovastatin Allergy Muscle Verified 08/21/23 05:14 Weakness sesame oil Allergy Anaphylaxis Verified 08/21/23 05:14 simvastatin Allergy Muscle Verified 08/21/23 05:14 Weakness Review of Systems ROS Statement: Those systems with pertinent positive or pertinent negative responses have been documented in the HPI. ROS Other: All systems not noted in ROS Statement are negative. Past Medical History Past Medical History: Atrial Fibrillation, Asthma, Diabetes Mellitus, Hyperlipidemia, Hypertension, Osteoarthritis (OA), Pulmonary Embolus (PE), Sleep Apnea/CPAP/BIPAP Additional Past Medical History / Comment(s): wt loss of 50#,has bruising to left leg from fall,uses c-pap machine, constipation due to norco., states torn left rotator cuff., states constant pain all over, hx of agent orange exposure, ptsd-touch foot if need to arouse pt-don't stand over pt. upper rt dental bridge,hx broken nose, had shingels vaccine-not sure of date. Tinnitus,covid infection caused blood clots in lungs 2020 History of Any Multi-Drug Resistant Organisms: None Reported Past Surgical History: Joint Replacement Additional Past Surgical History / Comment(s): Nemesio total knees, lipoma removed, vasectomy, right rotator cuff., cataracts.lt carpal tunnel release, lt thumb sx, "holes in nemesio retina repaired,deviated septal repair Past Anesthesia/Blood Transfusion Reactions: No Reported Reaction Past Psychological History: PTSD Smoking Status: Former smoker Past Alcohol Use History: None Reported Past Drug Use History: None Reported - Past Family History Father Family Medical History: Cancer Mother Additional Family Medical History / Comment(s): at age 40,had [place] in her sleep and cirrhosis of liver General Exam - General Exam Comments Initial Comments: Visual Physical Exam Vital signs reviewed General: Well-appearing, nontoxic, no acute distress. Head: Normocephalic, atraumatic Eyes: PERRLA, EOMI ENT: Airway patent Chest: Nonlabored breathing Skin: No visual rash, normal skin tone Neuro: Alert and oriented 3 Musculoskeletal: No gross abnormalities Limitations: no limitations General appearance: alert, in no apparent distress Head exam: Present: atraumatic, normocephalic, normal inspection Eye exam: Present: normal appearance, PERRL, EOMI. Absent: scleral icterus, conjunctival injection, periorbital swelling Course Vital Signs 09/06/23 05:29 Temperature 98 F Pulse Rate 74 Respiratory 16 Rate Blood Pressure 172/92 O2 Sat by Pulse 97 Oximetry Medical Decision Making - Medical Decision Making Was pt. sent in by a medical professional or institution (JOJO Bell, MONITORING ENGINEER, urgent care, hospital, or alf...) When possible be specific @ -No Did you speak to anyone other than the patient for history (EMS, parent, family, police, friend...)? What history was obtained from this source @ -No Did you review nursing and triage notes (agree or disagree)? Why? @ -I reviewed and agree with nursing and triage notes Were old charts reviewed (outside hosp., previous admission, EMS record, old EKG, old radiological studies, urgent care reports/EKG's, alf records)? Report findings @ -No old charts were reviewed Differential Diagnosis (chest pain, altered mental status, abdominal pain women, abdominal pain men, vaginal bleeding, weakness, fever, dyspnea, syncope, headache, dizziness, GI bleed, back pain, seizure, CVA, palpatations, mental health, musculoskeletal)? @ -Chronic pain, drug-seeking behavior EKG interpreted by me (3pts min.). @ -None X-rays interpreted by me (1pt min.). @ -None done CT interpreted by me (1pt min.). @ -None done U/S interpreted by me (1pt. min.). @ -None done What testing was considered but not performed or refused? (CT, X-rays, U/S, labs)? Why? @ -None What meds were considered but not given or refused? Why? @ -None Did you discuss the management of the patient with other professionals (professionals i.e. JOJO Bell, MONITORING ENGINEER, lab, RT, psych nurse, hospice social worker, it architecture analyst, teacher, deck officer, outsole caser)? Give summary @ -No Was smoking cessation discussed for >3mins.? @ -No Was critical care preformed (if so, how long)? @ -No Were there social determinants of health that impacted care today? How? (Homelessness, low income, unemployed, alcoholism, drug addiction, transportation, low edu. Level, literacy, decrease access to med. care, long term, rehab)? @ -No Was there de-escalation of care discussed even if they declined (Discuss DNR or withdrawal of care, Hospice)? DNR status @ -No What co-morbidities impacted this encounter? (DM, HTN, Smoking, COPD, CAD, Cancer, CVA, ARF, Chemo, Hep., AIDS, mental health diagnosis, sleep apnea, morbid obesity)? @ -[Chronic pain Was patient admitted / discharged? Hospital course, mention meds given and route, prescriptions, significant lab abnormalities, going to OR and other pertinent info. @ -Discharge patient advised and uses see PCP or pain management for medication refill ER is not the appropriate area for chronic pain medication refill. Patient refuses the management options that was provided by other pain management physicians and he states that he only needs his narcotic pain meds. Undiagnosed new problem with uncertain prognosis? @ -No Drug Therapy requiring intensive monitoring for toxicity (Heparin, Nitro, Insulin, Cardizem)? @ -No Were any procedures done? @ -No Diagnosis/symptom? @ -Chronic pain, drug-seeking behavior Acute, or Chronic, or Acute on Chronic? @ -Chronic Uncomplicated (without systemic symptoms) or Complicated (systemic symptoms)? @ -Uncomplicated Side effects of treatment? @ -No Exacerbation, Progression, or Severe Exacerbation? @ -No Poses a threat to life or bodily function? How? (Chest pain, [place], [place], pneumonia, PE, COPD, DKA, ARF, appy, cholecystitis, CVA, Diverticulitis, Homicidal, Suicidal, threat to staff... and all critical care pts) @ -No Disposition Clinical Impression: Drug-seeking behavior, Chronic pain Disposition: HOME SELF-CARE Condition: Stable Additional Instructions: follow-up your primary care physician or pain management for further pain meds. Please return to the Emergency Department if symptoms worsen or any other concerns. Is patient prescribed a controlled substance at d/c from ED?: No Referrals: Diamond Trejo MD [Primary Care Provider] - 1-2 days Time of Disposition: 06:10
== END 2023-09-06 06:14 | disposition home or self-care (01) ==
LOC: EC 05:28
DX: G89.29 Other chronic pain (principal); Z76.5 Malingerer [conscious simulation]; E11.36 Type 2 diabetes mellitus with diabetic cataract; I10 Essential (primary) hypertension; I48.91 Unspecified atrial fibrillation; J45.909 Unspecified asthma, uncomplicated; E78.5 Hyperlipidemia, unspecified; Z79.01 Long term (current) use of anticoagulants; Z79.84 Long term (current) use of oral hypoglycemic drugs; Z79.899 Other long term (current) drug therapy; Z87.891 Personal history of nicotine dependence; Z86.16 Personal history of COVID-19; Z86.711 Personal history of pulmonary embolism; Z88.8 Allergy status to other drugs, medicaments and biological substances; Z91.09 Other allergy status, other than to drugs and biological substances
CPT/HCPCS: 99282

== ENCOUNTER → 2023-10-12 | Outpatient (CLI) | payer OTHER ==
--- NOTE | 2023-10-12 09:02 | US ---
EXAMINATION TYPE: US liver DATE OF EXAM: 10/12/2023 COMPARISON: 2017 CLINICAL INDICATION: Male, 78 years old with history of R93.2 ABNORMAL FINDINGS ON DX IMAGING OF LIVE R AND; Hx of alcoholism TECHNIQUE: Multiple sonographic images of the right upper quadrant are obtained. FINDINGS: EXAM MEASUREMENTS: Liver Length: 15.5 cm Gallbladder Wall: 0.24 cm CBD: 0.37 cm Right Kidney: 11.9 x 6.2 x 5.4 cm INSTALLER METAL FLOORING NOTES: Pancreas: Obscured by bowel gas Liver: Indistinct, hypoechoic area adjacent to gallbladder measuring 4.1 x 4.6 x 5.0 cm Gallbladder: wnl Evidence for sonographic Day's sign: No CBD: wnl Right Kidney: Cystic area measuring 2.5 x 2.1 x 2.6 Limited exam due to patient body habitus and overlying bowel gas IMPRESSION: 1. Hepatic steatosis with focal fatty sparing near the gallbladder. 2. Simple appearing renal cysts.
== END | disposition home or self-care (01) ==
LOC: RADUSWWP 08:10
DX: K76.0 Fatty (change of) liver, not elsewhere classified (principal); N28.1 Cyst of kidney, acquired; R93.2 Abnormal findings on diagnostic imaging of liver and biliary tract
CPT/HCPCS: 76705

== ENCOUNTER → 2023-10-19 | Outpatient (CLI) | payer OTHER ==
--- NOTE | 2023-10-19 07:57 | US ---
EXAMINATION TYPE: US kidneys/renal and bladder DATE OF EXAM: 10/19/2023 COMPARISON: 2021 CLINICAL INDICATION: Male, 78 years old with history of N18.31 STAGE 3 CKD; EXAM MEASUREMENTS: Right Kidney: 12.3 x 5.8 x 5.0 cm Left Kidney: 12.7 x 5.6 x 4.7 cm Post Void Residual Volume: 0 mL Right Kidney: Multiple cysts noted; largest measuring 2.3 x 1.8 x 1.9 cm Left Kidney: Irregular contour; cyst measuring 3.2 x 1.9 x 2.4 cm Bladder: Anechoic Bilateral Jets seen: No Normal Post Void Residual: Yes There is no evidence for hydronephrosis at this point in time. No nephrolithiasis is seen. No master s are identified. The urinary bladder is anechoic. Bilateral ureteral jets are seen. IMPRESSION: 1. Bilateral renal cysts.
== END | disposition home or self-care (01) ==
LOC: RADUSWWP 06:50
PROVIDERS: ATTEND Internal Medicine Nephrology
DX: N28.1 Cyst of kidney, acquired (principal); N18.31 Chronic kidney disease, stage 3a
CPT/HCPCS: 76770

== ENCOUNTER → 2023-10-19 | Outpatient (CLI) | payer OTHER ==
[2023-10-19 09:07] LABS: Appearance,Urine Clear (Clear); Bilirubin,Urine Negative (Negative); Blood,Urine Moderate (Negative); Color,Urine Light Yellow; Glucose,Urine (UA) 4+ (Negative); Ketones,Urine Negative (Negative); Leukocyte Esterase,Urine Negative (Negative); Mucus,Urine Rare /hpf; Nitrite,Urine Negative (Negative); PH, Urine 5.5 (5.0-8.0); Protein,Urine Negative (Negative); RBC,Urine 34 /hpf (0-5); Specific Gravity,Urine 1.043 (1.001-1.035); Urobilinogen,Urine <2.0 mg/dL (<2.0); WBC,Urine 3 /hpf (0-5)
[2023-10-19 11:11] LABS: HCT 40.9 % (39.6-50.0); HGB 13.5 g/dL (13.0-17.0); MCH 31.9 pg (27.0-32.0); MCV 96.7 FL (80.0-97.0); Mean Platelet Volume 10.4 FL (9.5-12.2); NRBC Per 100 WBC 0 X 10*3/uL (0.00-0.01); Platelet Count 170 X 10*3/uL (140-440); RBC 4.23 X 10*6/uL (4.40-5.60); RDW 12.8 % (11.5-14.5); WBC 4.23 X 10*3/uL (4.50-10.00)
[2023-10-19 11:35] LABS: % Iron Saturation 39.26 (15.00-50.00); ALT 20 U/L (10-49); AST 17 U/L (14-35); Albumin/Globulin Ratio 1.82 Ratio (1.60-3.17); Alkaline Phosphatase 51 U/L (41-126); BUN/Creat Ratio 14.91 Ratio (12.00-20.00); Blood Urea Nitrogen 16.4 mg/dL (9.0-27.0); Calcium 9.2 mg/dL (8.7-10.3); Chloride 103 mmol/L (96-109); Ferritin 7.3 ng/mL (22.0-322.0); Globulin 2.2 g/dL (1.6-3.3); Glucose 222 mg/dL (70-110); Iron 137 UG/DL (65-175); Magnesium 1.9 mg/dL (1.5-2.4); Phosphorus 3.3 mg/dL (2.4-5.1); Sodium 140 mmol/L (135-145); Total Bilirubin 0.5 mg/dL (0.3-1.2); Total Iron Binding Capacity 349 UG/DL (228-460); Total Protein 6.2 g/dL (6.2-8.2); Uric Acid 2.2 mg/dL (3.7-8.7)
[2023-10-19 12:10] LABS: Microalbumin Creatinine Ratio <14 mg/g Cr (0-30); Urine Creatinine 88.4 mg/dL (39.0-259.0)
== END | disposition home or self-care (01) ==
LOC: LABWHC1 06:54
PROVIDERS: ATTEND Nurse Practitioner Family
DX: N18.31 Chronic kidney disease, stage 3a (principal); D63.1 Anemia in chronic kidney disease; N39.0 Urinary tract infection, site not specified; N25.81 Secondary hyperparathyroidism of renal origin; E55.9 Vitamin D deficiency, unspecified; M10.9 Gout, unspecified; R80.9 Proteinuria, unspecified
CPT/HCPCS: 36415; 80053; 81001; 82043; 82306; 82570; 82728; 83540; 83550; 83735; 83970; 84100; 84550; 85027

== ENCOUNTER 2023-12-20 08:07 | Emergency (ER) | payer OTHER ==
--- NOTE | 2023-12-20 08:25 | ED ---
General Adult HPI - General Chief complaint: Recheck/Abnormal Lab/Rx Stated complaint: Pain Med Refill Time Seen by Provider: 12/20/23 08:11 Source: patient, RN notes reviewed, old records reviewed Mode of arrival: ambulatory Limitations: no limitations - History of Present Illness Initial comments: 78-year-old male presenting with chief complaint of chronic pain requesting medication refill. Patient has chronic pain and has taken [place] for 20 years. He states that he is having a difficult time getting this prescription refilled. No new complaints. - Related Data Home Medications Medication Instructions Recorded Confirmed HYDROcodone/APAP 10-325MG [[place] 1 tab PO Q4H PRN 11/23/21 07/25/23 10-325] Apixaban [Eliquis] 5 mg PO BID 01/12/22 07/25/23 Cholecalciferol [Vitamin D3 (25 50 mcg PO DAILY 09/14/22 07/25/23 Mcg = 1000 Iu)] Cyanocobalamin (Vitamin B-12) 1,000 mcg PO DAILY 09/14/22 07/25/23 [Vitamin B-12] Flecainide [Tambocor] 100 mg PO Q12HR 09/14/22 07/25/23 Furosemide [Lasix] 20 mg PO HS 09/14/22 07/25/23 Metoprolol Succinate (ER) [Toprol 100 mg PO DAILY 09/14/22 07/25/23 Xl] Omeprazole 20 mg PO DAILY 09/14/22 07/25/23 Rosuvastatin Calcium 5 mg PO DAILY 09/14/22 07/25/23 bisacodyL [Dulcolax] 5 mg PO BID 09/14/22 07/25/23 diphenhydrAMINE [Benadryl] 25 mg PO HS PRN 09/14/22 07/25/23 lisinopriL [Zestril] 5 mg PO DAILY 09/14/22 07/25/23 metFORMIN HCL 1,000 mg PO BID 09/14/22 07/25/23 Previous Rx's Medication Instructions Recorded HYDROcodone/APAP 10-325MG [[place] 1 tab PO Q6H PRN #28 tab 08/21/23 10-325] HYDROcodone/APAP 5-325MG [[place] 1 tab PO Q6HR PRN 3 Days #12 tab 08/28/23 5-325] HYDROcodone/APAP 5-325MG [[place] 1 tab PO Q6HR PRN #4 tab 12/20/23 5-325] Allergies Allergy/AdvReac Type Severity Reaction Status Date / Time lovastatin Allergy Muscle Verified 12/20/23 08:11 Weakness sesame oil Allergy Anaphylaxis Verified 12/20/23 08:11 simvastatin Allergy Muscle Verified 12/20/23 08:11 Weakness Review of Systems ROS Statement: Those systems with pertinent positive or pertinent negative responses have been documented in the HPI. ROS Other: All systems not noted in ROS Statement are negative. Past Medical History Past Medical History: Atrial Fibrillation, Asthma, Diabetes Mellitus, Hyperlipidemia, Hypertension, Osteoarthritis (OA), Pulmonary Embolus (PE), Sleep Apnea/CPAP/BIPAP Additional Past Medical History / Comment(s): wt loss of 50#,has bruising to left leg from fall,uses c-pap machine, constipation due to norco., states torn left rotator cuff., states constant pain all over, hx of agent orange exposure, ptsd-touch foot if need to arouse pt-don't stand over pt. upper rt dental bridge,hx broken nose, had shingels vaccine-not sure of date. Tinnitus,covid infection caused blood clots in lungs 2020 History of Any Multi-Drug Resistant Organisms: None Reported Past Surgical History: Joint Replacement Additional Past Surgical History / Comment(s): Nemesio total knees, lipoma removed, vasectomy, right rotator cuff., cataracts.lt carpal tunnel release, lt thumb sx, "holes in nemesio retina repaired,deviated septal repair Past Anesthesia/Blood Transfusion Reactions: No Reported Reaction Past Psychological History: PTSD Smoking Status: Former smoker Past Alcohol Use History: None Reported Past Drug Use History: None Reported - Past Family History Father Family Medical History: Cancer Mother Additional Family Medical History / Comment(s): at age 40,had [place] in her sleep and cirrhosis of liver General Exam Limitations: no limitations General appearance: alert, in no apparent distress Head exam: Present: atraumatic, normocephalic Eye exam: Present: normal appearance, PERRL ENT exam: Present: normal exam Neck exam: Present: normal inspection. Absent: tenderness, meningismus Respiratory exam: Present: normal lung sounds bilaterally. Absent: respiratory distress, wheezes Cardiovascular Exam: Present: regular rate, normal rhythm GI/Abdominal exam: Present: soft. Absent: distended, tenderness Neurological exam: Present: alert, oriented X3 Psychiatric exam: Present: normal affect, normal mood Skin exam: Present: warm, dry, intact Course Vital Signs 12/20/23 08:07 Temperature 98 F Pulse Rate 92 Respiratory 18 Rate Blood Pressure 182/107 O2 Sat by Pulse 97 Oximetry Medical Decision Making - Medical Decision Making Was pt. sent in by a medical professional or institution (JOJO Bell, DIRECTOR COUNSELING [employer], urgent care, hospital, or half-way...) When possible be specific @ -No Did you speak to anyone other than the patient for history (EMS, parent, family, police, friend...)? What history was obtained from this source @ -No Did you review nursing and triage notes (agree or disagree)? Why? @ -I reviewed and agree with nursing and triage notes Were old charts reviewed (outside hosp., previous admission, EMS record, old EKG, old radiological studies, urgent care reports/EKG's, half-way records)? Report findings @ -No old charts were reviewed Differential Diagnosis (chest pain, altered mental status, abdominal pain women, abdominal pain men, vaginal bleeding, weakness, fever, dyspnea, syncope, headache, dizziness, GI bleed, back pain, seizure, CVA, palpatations, mental health, musculoskeletal)? @Chronic pain EKG interpreted by me (3pts min.). @ -As above X-rays interpreted by me (1pt min.). @ -None done CT interpreted by me (1pt min.). @ -None done U/S interpreted by me (1pt. min.). @ -None done What testing was considered but not performed or refused? (CT, X-rays, U/S, labs)? Why? @ -None What meds were considered but not given or refused? Why? @ -None Did you discuss the management of the patient with other professionals (professionals i.e. JOJO Bell, DIRECTOR COUNSELING [employer]AU, lab, RT, psych nurse, high school social studies teacher, jet mechanic, teacher, house officer, sample case porter)? Give summary @ -No Was smoking cessation discussed for >3mins.? @ -No Was critical care preformed (if so, how long)? @ -No Were there social determinants of health that impacted care today? How? (H omelessness, low income, unemployed, alcoholism, drug addiction, transportation, low edu. Level, literacy, decrease access to med. care, assisted, rehab)? @ -No Was there de-escalation of care discussed even if they declined (Discuss DNR or withdrawal of care, Hospice)? DNR status @ -No What co-morbidities impacted this encounter? (DM, HTN, Smoking, COPD, CAD, Cancer, CVA, ARF, Chemo, Hep., AIDS, mental health diagnosis, sleep apnea, morbid obesity)? @Chronic pain Was patient admitted / discharged? Hospital course, mention meds given and route, prescriptions, significant lab abnormalities, going to OR and other pertinent info. @Chronic pain, patient prescribed 1 day of [place] 5. He needs to follow-up with his primary care provider or pain specialist. Undiagnosed new problem with uncertain prognosis? @ -No Drug Therapy requiring intensive monitoring for toxicity (Heparin, Nitro, Insulin, Cardizem)? @ -No Were any procedures done? @ -No Diagnosis/symptom? @ -[Chronic pain Acute, or Chronic, or Acute on Chronic? @ -Chronic Uncomplicated (without systemic symptoms) or Complicated (systemic symptoms)? @ -[default Side effects of treatment? @ -No Exacerbation, Progression, or Severe Exacerbation? @ -No Poses a threat to life or bodily function? How? (Chest pain, USA, [place], pneumonia, PE, COPD, DKA, ARF, appy, cholecystitis, CVA, Diverticulitis, Homicidal, Suicidal, threat to staff... and all critical care pts) @ -No Disposition Clinical Impression: Encounter for medication refill Disposition: HOME SELF-CARE Condition: Fair Instructions (If sedation given, give patient instructions): Chronic Pain (ED) Prescriptions: HYDROcodone/APAP 5-325MG [[place] 5-325] 1 tab PO Q6HR PRN #4 tab PRN Reason: Pain Is patient prescribed a controlled substance at d/c from ED?: No Referrals: Diamond Trejo MD [Primary Care Provider] - 1-2 days Time of Disposition: 08:29
[2023-12-20 09:10] VITALS: BP 182/107; PULSE 92; RESP 18; TEMP 98
== END 2023-12-20 08:45 | disposition home or self-care (01) ==
LOC: EC 08:07
DX: Z76.0 Encounter for issue of repeat prescription (principal); E11.9 Type 2 diabetes mellitus without complications; E78.5 Hyperlipidemia, unspecified; I10 Essential (primary) hypertension; J45.909 Unspecified asthma, uncomplicated; I48.91 Unspecified atrial fibrillation; G47.30 Sleep apnea, unspecified; Z87.891 Personal history of nicotine dependence; Z79.899 Other long term (current) drug therapy; Z86.16 Personal history of COVID-19; Z79.84 Long term (current) use of oral hypoglycemic drugs; Z79.01 Long term (current) use of anticoagulants; Z88.8 Allergy status to other drugs, medicaments and biological substances
CPT/HCPCS: 99283

== ENCOUNTER → 2023-12-22 | Outpatient (CLI) | payer OTHER ==
--- NOTE | 2023-12-22 15:40 | XR ---
EXAMINATION TYPE: XR shoulder limited bilateral DATE OF EXAM: 12/22/2023 COMPARISON: NONE HISTORY: 78-year-old male M1 5.0, worsening chronic pain, arthritis TECHNIQUE: Single AP view each side FINDINGS: Moderate degenerative changes bilateral AC joints. Slight narrowing of the subacromial spac e on the left. Otherwise, no acute fracture or dislocation seen. IMPRESSION: 1. Moderate bilateral AC joint OA. 2. There may be an underlying full thickness rotator cuff tear left shoulder given narrowed appearing subacromial space. 3. Overall assessment is limited due to single provided AP views.
--- NOTE | 2023-12-22 15:53 | XR ---
EXAMINATION TYPE: XR spine complete AP and Lat DATE OF EXAM: 12/22/2023 COMPARISON: Cervical spine 01/28/2022 HISTORY: 78-year-old male with worsening chronic pain, and one 5.0. TECHNIQUE: 9 views FINDINGS: Cervical spine: Normal odontoid view. Moderate disc/endplate degenerative change C5-C6. Below C6/C7, the patient's shoulders obscures detail of the cervical spine. Trace grade 1 anterolisthesis C4-C5 an d trace grade 1 retrolisthesis C5-C6. Multilevel hypertrophic facet and uncovertebral joint arthropat hy. No prevertebral soft tissue swelling or predental space widening. Thoracic spine: Moderate disc/endplate degenerative change mid thoracic spine along with endplate scl erosis and some prominent anterior endplate spondylosis. Vertebral body heights are preserved. Alignm ent is maintained. 12 rib bearing thoracic vertebral bodies. All pedicles are visualized. Lumbar spine: 5 lumbar type vertebral bodies. Multilevel moderate degenerative disc disease. Hypertr ophic facet arthropathy mid to lower lumbar spine. Degenerative grade 1 anterolisthesis L4-L5. Verteb ral body heights are preserved. IMPRESSION: 1. Cervical spine: Moderate spondylotic change throughout. Degenerative trace grade 1 spondylolisthes is C4-C5 and C5-C6. No prevertebral soft tissue swelling. 2. Thoracic spine: Moderate spondylotic change mid cervical spine with anterior spondylosis. No verte bral compression collapse or malalignment. 3. Lumbar spine: Moderate multilevel degenerative disc disease. Hypertrophic facet arthropathy mid to lower lumbar spine. Degenerative grade 1 anterolisthesis L4-L5. No vertebral compression collapse.
== END | disposition home or self-care (01) ==
LOC: RADXRMAIN 06:57
PROVIDERS: ATTEND Anesthesiology
DX: M19.011 Primary osteoarthritis, right shoulder (principal); M19.012 Primary osteoarthritis, left shoulder; M47.812 Spondylosis without myelopathy or radiculopathy, cervical region; M43.12 Spondylolisthesis, cervical region; M51.36 Other intervertebral disc degeneration, lumbar region; M47.816 Spondylosis without myelopathy or radiculopathy, lumbar region
CPT/HCPCS: 72082

== ENCOUNTER 2024-01-24 01:23 | Emergency (ER) | payer OTHER ==
[2024-01-24] MEDS: KETOROLAC 15 MG/ML 1 ML VIAL IM STA (01:46)
[2024-01-24] MEDS: HYDROmorphone 0.5 MG/0.5 ML SYRINGE IM STA (01:48)
[2024-01-24 02:03] VITALS: RESP 19; TEMP 97.6
--- NOTE | 2024-01-24 02:43 | XR ---
EXAM: XR Pelvis Complete, 3 or More Views CLINICAL HISTORY: ITS.REASON XR Reason: hip injury TECHNIQUE: Frontal and lateral or oblique views of the pelvis. COMPARISON: No relevant prior studies available. FINDINGS: Bones/joints: No acute fracture. No dislocation. Soft tissues: Unremarkable. IMPRESSION: No acute findings.
--- NOTE | 2024-01-24 02:52 | ED ---
General Adult HPI - General Chief complaint: Extremity Injury, Lower Stated complaint: Hip Pain, Hypertension Time Seen by Provider: 01/24/24 01:27 Source: patient, EMS Mode of arrival: ambulatory - History of Present Illness Initial comments: This patient is a 78-year-old man with chronic hip and back pain who states that he has had worsening of his back pain over the course of past hours. He states he tried taking his home medication without much relief. Patient notes that he thinks he needs stronger home medication but is having difficulty finding pain management physician. Patient denies change in bladder or bowel function no leg weakness -: hour(s) Location: back, lower extremity Quality: aching Consistency: constant Improves with: none Worsens with: none Associated Symptoms: denies other symptoms Treatments Prior to Arrival: other ([place]) - Related Data Home Medications Medication Instructions Recorded Confirmed HYDROcodone/APAP 10-325MG [[place] 1 tab PO Q4H PRN 11/23/21 07/25/23 10-325] Apixaban [Eliquis] 5 mg PO BID 01/12/22 07/25/23 Cholecalciferol [Vitamin D3 (25 50 mcg PO DAILY 09/14/22 07/25/23 Mcg = 1000 Iu)] Cyanocobalamin (Vitamin B-12) 1,000 mcg PO DAILY 09/14/22 07/25/23 [Vitamin B-12] Flecainide [Tambocor] 100 mg PO Q12HR 09/14/22 07/25/23 Furosemide [Lasix] 20 mg PO HS 09/14/22 07/25/23 Metoprolol Succinate (ER) [Toprol 100 mg PO DAILY 09/14/22 07/25/23 Xl] Omeprazole 20 mg PO DAILY 09/14/22 07/25/23 Rosuvastatin Calcium 5 mg PO DAILY 09/14/22 07/25/23 bisacodyL [Dulcolax] 5 mg PO BID 09/14/22 07/25/23 diphenhydrAMINE [Benadryl] 25 mg PO HS PRN 09/14/22 07/25/23 lisinopriL [Zestril] 5 mg PO DAILY 09/14/22 07/25/23 metFORMIN HCL 1,000 mg PO BID 09/14/22 07/25/23 Previous Rx's Medication Instructions Recorded HYDROcodone/APAP 10-325MG [[place] 1 tab PO Q6H PRN #28 tab 08/21/23 10-325] HYDROcodone/APAP 5-325MG [[place] 1 tab PO Q6HR PRN 3 Days #12 tab 08/28/23 5-325] HYDROcodone/APAP 5-325MG [[place] 1 tab PO Q6HR PRN #4 tab 12/20/23 5-325] methocarbamoL [Robaxin-750] 1,500 mg PO TID PRN #30 tab 01/24/24 Allergies Allergy/AdvReac Type Severity Reaction Status Date / Time lovastatin Allergy Muscle Verified 12/20/23 08:11 Weakness sesame oil Allergy Anaphylaxis Verified 12/20/23 08:11 simvastatin Allergy Muscle Verified 12/20/23 08:11 Weakness Review of Systems ROS Statement: Those systems with pertinent positive or pertinent negative responses have been documented in the HPI. ROS Other: All systems not noted in ROS Statement are negative. Constitutional: Denies: fever, chills, weakness Respiratory: Denies: cough, dyspnea Cardiovascular: Denies: chest pain, palpitations, edema Gastrointestinal: Denies: abdominal pain, vomiting, diarrhea, constipation Genitourinary: Denies: dysuria, hematuria, testicular pain Musculoskeletal: Reports: as per HPI, back pain, arthralgia (Hip pain) Skin: Denies: rash Neurological: Denies: headache, weakness, numbness Past Medical History Past Medical History: Atrial Fibrillation, Asthma, Diabetes Mellitus, Hyperlipidemia, Hypertension, Osteoarthritis (OA), Pulmonary Embolus (PE), Sleep Apnea/CPAP/BIPAP Additional Past Medical History / Comment(s): wt loss of 50#,has bruising to left leg from fall,uses c-pap machine, constipation due to norco., states torn left rotator cuff., states constant pain all over, hx of agent orange exposure, ptsd-touch foot if need to arouse pt-don't stand over pt. upper rt dental bridge,hx broken nose, had shingels vaccine-not sure of date. Tinnitus,covid infection caused blood clots in lungs 2020 History of Any Multi-Drug Resistant Organisms: None Reported Past Surgical History: Joint Replacement Additional Past Surgical History / Comment(s): Nemesio total knees, lipoma removed, vasectomy, right rotator cuff., cataracts.lt carpal tunnel release, lt thumb sx, "holes in nemesio retina repaired,deviated septal repair Past Anesthesia/Blood Transfusion Reactions: No Reported Reaction Past Psychological History: PTSD Smoking Status: Former smoker Past Alcohol Use History: None Reported Past Drug Use History: None Reported - Past Family History Father Family Medical History: Cancer Mother Additional Family Medical History / Comment(s): at age 40,had [place] in her sleep and cirrhosis of liver General Exam General appearance: alert, in no apparent distress Head exam: Present: atraumatic, normocephalic Eye exam: Present: normal appearance. Absent: scleral icterus, conjunctival injection Neck exam: Present: normal inspection, full ROM Respiratory exam: Present: normal lung sounds bilaterally. Absent: respiratory distress, wheezes, rales, rhonchi, stridor, accessory muscle use Cardiovascular Exam: Present: regular rate, normal rhythm, normal heart sounds. Absent: systolic murmur, diastolic murmur, rubs, gallop GI/Abdominal exam: Present: soft. Absent: distended, tenderness, pulsatile mass Extremities exam: Present: normal inspection, tenderness, normal capillary refill. Absent: full ROM Back exam: Present: normal inspection. Absent: CVA tenderness (R), CVA tenderness (L), vertebral tenderness Neurological exam: Present: alert Skin exam: Present: warm, dry, intact, normal color. Absent: rash Course Vital Signs 01/24/24 01/24/24 01:25 02:56 Temperature 97.6 F Pulse Rate 87 82 Respiratory 19 19 Rate Blood Pressure 192/110 168/101 O2 Sat by Pulse 94 L 100 Oximetry Medical Decision Making - Medical Decision Making The patient had hip and pelvis x-ray which I interpreted as negative for acute bony injury Was pt. sent in by a medical professional or institution (, PA, VEHICLE DETAILER, urgent care, hospital, or prison...) When possible be specific @ -[No] Did you speak to anyone other than the patient for history (EMS, parent, family, police, friend...)? What history was obtained from this source @ -[No] Did you review nursing and triage notes (agree or disagree)? Why? @ -[I reviewed and agree with nursing and triage notes] Were old charts reviewed (outside hosp., previous admission, EMS record, old E KG, old radiological studies, urgent care reports/EKG's, prison records)? Report findings @ -[No old charts were reviewed] Differential Diagnosis (chest pain, altered mental status, abdominal pain women, abdominal pain men, vaginal bleeding, weakness, fever, dyspnea, syncope, headache, dizziness, GI bleed, back pain, seizure, CVA, palpatations, mental health, musculoskeletal)? @ -[not applicable] EKG interpreted by me (3pts min.). @ -[ X-rays interpreted by me (1pt min.). @ -Interpreted as above CT interpreted by me (1pt min.). @ -[None done] U/S interpreted by me (1pt. min.). @ -[None done] What testing was considered but not performed or refused? (CT, X-rays, U/S, labs)? Why? @ -[None] What meds were considered but not given or refused? Why? @ -[None] Did you discuss the management of the patient with other professionals (professionals i.e. , PA, VEHICLE DETAILER, lab, RT, psych nurse, mental health social worker, manager private, teacher, chief talent officer, case management manager)? Give summary @ -[No] Was smoking cessation discussed for >3mins.? @ -[No] Was critical care preformed (if so, how long)? @ -[No] Were there social determinants of health that impacted care today? How? (Homelessness, low income, unemployed, alcoholism, drug addiction, transportation, low edu. Level, literacy, decrease access to med. care, [facility], rehab)? @ -[No] Was there de-escalation of care discussed even if they declined (Discuss DNR or withdrawal of care, Hospice)? DNR status @ -[No] What co-morbidities impacted this encounter? (DM, HTN, Smoking, COPD, CAD, Cancer, CVA, ARF, Chemo, Hep., AIDS, mental health diagnosis, sleep apnea, morbid obesity)? @ -[None] Was patient admitted / discharged? Hospital course, mention meds given and route, prescriptions, significant lab abnormalities, going to OR and other pertinent info. @ -[Patient is 78-year-old man with exacerbation of chronic pain. There does not appear to be cauda equina syndrome. No acute injury. Discussed further pain management. We did give analgesia here and patient strongly recommended to follow-up with pain management physician. Undiagnosed new problem with uncertain prognosis? @ -[No] Drug Therapy requiring intensive monitoring for toxicity (Heparin, Nitro, Insulin, Cardizem)? @ -[No] Were any procedures done? @ -[No] Diagnosis/symptom? @ -[Due to exacerbation of chronic pain Acute, or Chronic, or Acute on Chronic? @ -[Acute on chronic Uncomplicated (without systemic symptoms) or Complicated (systemic symptoms)? @ -[default] Side effects of treatment? @ -[No] Exacerbation, Progression, or Severe Exacerbation? @ -[No] Poses a threat to life or bodily function? How? (Chest pain, [place], [place], pneumonia, PE, COPD, DKA, ARF, appy, cholecystitis, CVA, Diverticulitis, Homicidal, Suicidal, threat to staff... and all critical care pts) @ -[No] Disposition Clinical Impression: Hip pain Disposition: HOME SELF-CARE Condition: Good Instructions (If sedation given, give patient instructions): Hip Pain (ED) Is patient prescribed a controlled substance at d/c from ED?: No Referrals: Diamond Trejo MD [Primary Care Provider] - 1-2 days
[2024-01-24 03:17] VITALS: BP 168/101; PULSE 82
== END 2024-01-24 03:20 | disposition home or self-care (01) ==
LOC: EC 01:23
DX: G89.29 Other chronic pain (principal); M25.559 Pain in unspecified hip; Z87.891 Personal history of nicotine dependence; Z86.16 Personal history of COVID-19; Z88.8 Allergy status to other drugs, medicaments and biological substances
CPT/HCPCS: 73502; 99284; 96372 ×2; J1885; J1170

== ENCOUNTER 2024-01-24 13:13 | Emergency (ER) | payer OTHER ==
[2024-01-24 13:51] VITALS: RESP 18; TEMP 98.2
--- NOTE | 2024-01-24 14:10 | ED ---
Lower Extremity Injury HPI - General Chief Complaint: Back Pain/Injury Stated Complaint: Back pain Time Seen by Provider: 01/24/24 13:44 Source: patient, EMS, RN notes reviewed Mode of arrival: EMS Limitations: no limitations - History of Present Illness Initial Comments: This is a 78-year-old male who presents to the emergency department for left hip pain. Patient states that he kicked a branch 2 days ago and his foot got caught in a branch in the process. He ended up twisting his leg around and has since had severe pain in the left hip. Pain started to radiate down the left leg as well. Denies hitting his head or sustaining any other injuries. He takes Vicodin at home for pain, which he states has not been effective. He was evaluated here earlier this morning for the same symptoms. He had negative imaging at that time and was discharged home. States that the pain is continuing to get worse and he is having difficulty ambulating. MD Complaint: hip injury - Related Data Home Medications Medication Instructions Recorded Confirmed HYDROcodone/APAP 10-325MG [[place] 1 tab PO Q4H PRN 11/23/21 07/25/23 10-325] Apixaban [Eliquis] 5 mg PO BID 01/12/22 07/25/23 Cholecalciferol [Vitamin D3 (25 50 mcg PO DAILY 09/14/22 07/25/23 Mcg = 1000 Iu)] Cyanocobalamin (Vitamin B-12) 1,000 mcg PO DAILY 09/14/22 07/25/23 [Vitamin B-12] Flecainide [Tambocor] 100 mg PO Q12HR 09/14/22 07/25/23 Furosemide [Lasix] 20 mg PO HS 09/14/22 07/25/23 Metoprolol Succinate (ER) [Toprol 100 mg PO DAILY 09/14/22 07/25/23 Xl] Omeprazole 20 mg PO DAILY 09/14/22 07/25/23 Rosuvastatin Calcium 5 mg PO DAILY 09/14/22 07/25/23 bisacodyL [Dulcolax] 5 mg PO BID 09/14/22 07/25/23 diphenhydrAMINE [Benadryl] 25 mg PO HS PRN 09/14/22 07/25/23 lisinopriL [Zestril] 5 mg PO DAILY 09/14/22 07/25/23 metFORMIN HCL 1,000 mg PO BID 09/14/22 07/25/23 Previous Rx's Medication Instructions Recorded HYDROcodone/APAP 10-325MG [[place] 1 tab PO Q6H PRN #28 tab 08/21/23 10-325] HYDROcodone/APAP 5-325MG [[place] 1 tab PO Q6HR PRN 3 Days #12 tab 08/28/23 5-325] HYDROcodone/APAP 5-325MG [[place] 1 tab PO Q6HR PRN #4 tab 12/20/23 5-325] methocarbamoL [Robaxin-750] 1,500 mg PO TID PRN #30 tab 01/24/24 Allergies Allergy/AdvReac Type Severity Reaction Status Date / Time lovastatin Allergy Muscle Verified 12/20/23 08:11 Weakness sesame oil Allergy Anaphylaxis Verified 12/20/23 08:11 simvastatin Allergy Muscle Verified 12/20/23 08:11 Weakness Review of Systems ROS Statement: Those systems with pertinent positive or pertinent negative responses have been documented in the HPI. ROS Other: All systems not noted in ROS Statement are negative. Past Medical History Past Medical History: Atrial Fibrillation, Asthma, Diabetes Mellitus, Hyperlipidemia, Hypertension, Osteoarthritis (OA), Pulmonary Embolus (PE), Sleep Apnea/CPAP/BIPAP Additional Past Medical History / Comment(s): wt loss of 50#,has bruising to left leg from fall,uses c-pap machine, constipation due to norco., states torn left rotator cuff., states constant pain all over, hx of agent orange exposure, ptsd-touch foot if need to arouse pt-don't stand over pt. upper rt dental bridge,hx broken nose, had shingels vaccine-not sure of date. Tinnitus,covid infection caused blood clots in lungs 2020 History of Any Multi-Drug Resistant Organisms: None Reported Past Surgical History: Joint Replacement Additional Past Surgical History / Comment(s): Nemesio total knees, lipoma removed, vasectomy, right rotator cuff., cataracts.lt carpal tunnel release, lt thumb sx, "holes in nemesio retina repaired,deviated septal repair Past Anesthesia/Blood Transfusion Reactions: No Reported Reaction Past Psychological History: PTSD Smoking Status: Former smoker Past Alcohol Use History: None Reported Past Drug Use History: None Reported - Past Family History Father Family Medical History: Cancer Mother Additional Family Medical History / Comment(s): at age 40,had MN in her sleep and cirrhosis of liver General Exam Limitations: no limitations General appearance: alert, in no apparent distress Head exam: Present: atraumatic, normocephalic, normal inspection Respiratory exam: Present: normal lung sounds bilaterally. Absent: respiratory distress, wheezes, rales, rhonchi, stridor Cardiovascular Exam: Present: regular rate, normal rhythm, normal heart sounds. Absent: systolic murmur, diastolic murmur, rubs, gallop, clicks Extremities exam: Present: other (Tenderness to palpation over the left hip. There are no deformities, shortening, or rotation. No erythema, swelling, or warmth. 2+ DP and PT pulses.) Neurological exam: Present: alert, oriented X3, CN II-XII intact Psychiatric exam: Present: normal affect, normal mood Skin exam: Present: warm, dry, intact, normal color. Absent: rash Course Vital Signs 01/24/24 01/24/24 13:21 16:50 Temperature 98.2 F 98.2 F Pulse Rate 85 75 Respiratory 18 18 Rate Blood Pressure 167/104 185/88 O2 Sat by Pulse 95 95 Oximetry Medical Decision Making - Medical Decision Making This is a 78 year old male who presents to the emergency department for left hip pain. Was pt. sent in by a medical professional or institution? @ -No Did you speak to anyone other than the patient for history? @ -No Did you review nursing and triage notes? @ -Yes, and I agree, it is accurate with regards to the patient's symptoms. Were old charts reviewed? @ -X-ray of the hip/pelvis from earlier today demonstrating no acute process. Differential Diagnosis? @ -Differential Musculoskeletal: Muscular strain, contusion, ligament sprain, fracture, arthritis, septic arthritis, bursitis, cellulitis, muscle spasm, nerve compression, DVT, arterial occlusion, herpes zoster, electrolyte abnormality, tumor.... This is not meant to be in all inclusive list EKG interpreted by me (3pts min.)? @ -Not obtained X-rays interpreted by me (1pt min.)? @ -Not obtained CT interpreted by me (1pt min.)? @ -CT scan of the left hip obtained. My interpretation identifies no acute fractures. U/S interpreted by me (1pt. min.)? @ -Not obtained What testing was considered but not performed? (CT, X-rays, U/S, labs)? Why? @ -None What meds were considered but not given? Why? @ -None Did you discuss the management of the patient with other professionals? @ -No Did you reconcile home meds? @ -No Was smoking cessation discussed for >3mins.? @ -No Was critical care preformed (if so, how long)? @ -No Were there social determinants of health that impacted care today? How? (Homelessness, low income, unemployed, alcoholism, drug addiction, transportation, low edu. Level, literacy, decrease access to med. care, long term, re hab)? @ -No Was there de-escalation of care discussed even if they declined? (Discuss DNR or withdrawal of care, Hospice)? @ -No What co-morbidities impacted this encounter? (DM, HTN, Smoking, COPD, CAD, Cancer, CVA, Hep., AIDS, mental health diagnosis, sleep apnea, morbid obesity)? @ -Osteoarthritis Was patient admitted / discharged? @ -Discharged. Given that the patient had already had negative x-rays of the hip from earlier today, we proceeded with a CT scan. This also revealed no acute process. Advised the patient that while there are no obvious fractures, this does not rule out problems with other structures in the hip. His pain was well-managed in the emergency department and a knee immobilizer was applied, which he states was helpful. Advised using his walker as opposed to a cane for the meantime. Prescription for Robaxin provided with dosing instructions reviewed for additional management. Patient discharged home in stable condition. Undiagnosed new problem with uncertain prognosis? @ -None Drug Therapy requiring intensive monitoring for toxicity (Heparin, Nitro, Insulin, Cardizem)? @ -None Were any procedures done? @ -None Diagnosis/symptom? @ Left hip pain Acute, or Chronic, or Acute on Chronic? @ -Acute Uncomplicated (without systemic symptoms) or Complicated (systemic symptoms)? @ -Uncomplicated Side effects of treatment? @ -None Exacerbation, Progression, or Severe Exacerbation] @ -Not applicable Poses a threat to life or bodily function? @ -This is having somewhat of an impact on his ability to ambulate for the mean time. Return precautions reviewed in depth, the patient is instructed to return to the emergency department with any new, worsening, or concerning symptoms. Patient verbalized understanding. This case was discussed in detail with the attending ED physician, Dr. Antoine. Presentation, findings, and treatment plan discussed in detail as well. - Radiology Data Radiology results: report reviewed, image reviewed Disposition Clinical Impression: Sprain of left hip Disposition: HOME SELF-CARE Instructions (If sedation given, give patient instructions): Hip Sprain (ED), Knee Immobilizer (ED) Additional Instructions: Return to the emergency department with any new, worsening, or concerning symptoms. You can take the Robaxin as 1 to 2 tablets up to 3-4 times daily. Follow up with your primary care provider in 1-2 days. Prescriptions: methocarbamoL [Robaxin-750] 1,500 mg PO TID PRN #30 tab PRN Reason: Pain Is patient prescribed a controlled substance at d/c from ED?: No Referrals: Diamond Trejo MD [Primary Care Provider] - 1-2 days Time of Disposition: 16:20
[2024-01-24] MEDS: KETOROLAC 15 MG/ML 1 ML VIAL IVP STA (14:16)
[2024-01-24] MEDS: HYDROmorphone 1 MG/ML 1 ML SYRINGE IVP STA ×2 (14:18→16:46)
[2024-01-24] MEDS: ORPHENADRINE 30 MG/ML 2 ML VIAL IVP STA (14:20)
--- NOTE | 2024-01-24 14:35 | CT ---
EXAMINATION TYPE: CT hip LT wo con DATE OF EXAM: 01/24/2024 COMPARISON: 01/24/2024 x-ray HISTORY: Left side hip pain, negative x-rays. CT DLP: 1029.6 mGycm Automated exposure control for dose reduction was used. Contrast: None Technique: Axial images 3 mm thick sections. Reconstructed images in the coronal and sagittal planes. FINDINGS: Femoral head articulates with the acetabulum. There is mild diffuse joint space narrowing. No acute f racture or dislocation is evident. No suspicious joint effusion is evident. Additional pelvic structu res appear intact. There is some sacroiliac joint degenerative changes and vacuum joint space phenome non. IMPRESSION: 1. NO ACUTE OSSEOUS ABNORMALITIES LEFT HIP. SOME MILD DEGENERATIVE CHANGE AT THE LEFT HIP IS PRESENT. SOME MODERATE DEGENERATIVE CHANGE AT THE LEFT SACROILIAC JOINT IS PRESENT
[2024-01-24] MEDS: IBUPROFEN 600 MG STARTER PACK 4 TAB BTL PO STA (16:46)
[2024-01-24] MEDS: traMADol 50 MG STARTER PACK 3 TAB BTL PO STA (16:46)
[2024-01-24] MEDS: DEXAMETHASONE SOD PHOSPHATE 10 MG/ML 1 ML VIAL IVP STA (16:48)
[2024-01-24 17:07] VITALS: BP 185/88; PULSE 75
== END 2024-01-24 16:57 | disposition home or self-care (01) ==
LOC: EC 13:13
DX: S73.102A Unspecified sprain of left hip, initial encounter (principal); Z87.891 Personal history of nicotine dependence; Z91.018 Allergy to other foods; Z88.8 Allergy status to other drugs, medicaments and biological substances; W23.0XXA Caught, crushed, jammed, or pinched between moving objects, initial encounter
CPT/HCPCS: 73700; 99285; 96374; 96375 ×3; J1100; J2360; J1170; J1885

== ENCOUNTER → 2024-06-21 | Outpatient (CLI) | payer OTHER ==
[2024-06-21 11:12] LABS: ALT 18 U/L (10-49); AST 15 U/L (14-35); Albumin 4.3 g/dL (3.8-4.9); Albumin/Globulin Ratio 2.05 Ratio (1.60-3.17); Alkaline Phosphatase 40 U/L (41-126); Blood Urea Nitrogen 22.9 mg/dL (9.0-27.0); Calcium 9.3 mg/dL (8.7-10.3); Carbon Dioxide 25.9 mmol/L (21.6-31.8); Chloride 103 mmol/L (96-109); Chol/HDL Ratio 3.27 Ratio; Globulin 2.1 g/dL (1.6-3.3); Glucose 162 mg/dL (70-110); LDL Cholesterol,Calculated 84.1 mg/dL (0.0-131.0); Potassium 4.3 mmol/L (3.5-5.5); Sodium 138 mmol/L (135-145); Total Bilirubin 0.6 mg/dL (0.3-1.2); Total Protein 6.4 g/dL (6.2-8.2)
== END | disposition home or self-care (01) ==
LOC: LABWHC1 06:54
PROVIDERS: ATTEND Internal Medicine Endocrinology, Diabetes & Metabolism
DX: E11.65 Type 2 diabetes mellitus with hyperglycemia (principal)
CPT/HCPCS: 36415; 80053; 80061; 82043; 82570; 83036; 84443

== ENCOUNTER → 2024-11-06 | Outpatient (CLI) | payer OTHER ==
[2024-11-06 14:13] LABS: Appearance,Urine Clear (Clear); Bilirubin,Urine Negative (Negative); Blood,Urine Negative (Negative); Color,Urine Yellow; Glucose,Urine (UA) 1+ (Negative); Ketones,Urine Negative (Negative); Leukocyte Esterase,Urine Negative (Negative); Mucus,Urine Occasional /hpf; Nitrite,Urine Negative (Negative); PH, Urine 5.5 (5.0-8.0); Protein,Urine 1+ (Negative); RBC,Urine 1 /hpf (0-5); Specific Gravity,Urine 1.034 (1.001-1.035); Squamous Epithelial Cell,Urine <1 /hpf (0-4); Urobilinogen,Urine <2.0 mg/dL (<2.0); WBC,Urine 1 /hpf (0-5)
[2024-11-06 18:22] LABS: Basophils # (A) 0.03 X 10*3/uL (0.00-0.10); Basophils % (A) 0.7 %; Eosinophils # (A) 0.19 X 10*3/uL (0.04-0.35); Eosinophils % (A) 4.5 %; HCT 42.4 % (39.6-50.0); HGB 13.9 g/dL (13.0-17.0); Lymphocytes # (A) 1.75 X 10*3/uL (0.90-5.00); Lymphocytes % (A) 41.3 %; MCH 31.2 pg (27.0-32.0); MCHC 32.8 g/dL (32.0-37.0); MCV 95.1 FL (80.0-97.0); Mean Platelet Volume 10.6 FL (9.5-12.2); Monocytes # (A) 0.37 X 10*3/uL (0.20-1.00); Monocytes % (A) 8.7 %; NRBC Per 100 WBC 0 X 10*3/uL (0.00-0.01); Neutrophils # (A) 1.89 X 10*3/uL (1.80-7.70); Neutrophils % (A) 44.6 %; Platelet Count 181 X 10*3/uL (140-440); RBC 4.46 X 10*6/uL (4.40-5.60); RDW 12.2 % (11.5-14.5); WBC 4.24 X 10*3/uL (4.50-10.00)
[2024-11-06 19:33] LABS: % Iron Saturation 40.18 (15.00-50.00); ALT 18 U/L (10-49); AST 17 U/L (14-35); Albumin 3.9 g/dL (3.8-4.9); Albumin/Globulin Ratio 1.77 Ratio (1.60-3.17); Alkaline Phosphatase 54 U/L (41-126); BUN/Creat Ratio 17.18 Ratio (12.00-20.00); Blood Urea Nitrogen 18.9 mg/dL (9.0-27.0); Calcium 8.7 mg/dL (8.7-10.3); Carbon Dioxide 26.3 mmol/L (21.6-31.8); Chloride 103 mmol/L (96-109); Ferritin 16.8 ng/mL (22.0-322.0); Globulin 2.2 g/dL (1.6-3.3); Glucose 133 mg/dL (70-110); Iron 135 UG/DL (65-175); Magnesium 1.9 mg/dL (1.5-2.4); Phosphorus 2.5 mg/dL (2.4-5.1); Potassium 4.4 mmol/L (3.5-5.5); Sodium 141 mmol/L (135-145); Total Bilirubin 0.5 mg/dL (0.3-1.2); Total Iron Binding Capacity 336 UG/DL (228-460); Total Protein 6.1 g/dL (6.2-8.2)
== END | disposition home or self-care (01) ==
LOC: LABWHC1 08:56
PROVIDERS: ATTEND Internal Medicine
DX: N18.31 Chronic kidney disease, stage 3a (principal)
CPT/HCPCS: 36415; 80053; 81001; 82043; 82306; 82570; 82728; 83540; 83550; 83735; 83970; 84100; 84550; 85025

== ENCOUNTER → 2024-12-24 | Outpatient (CLI) | payer OTHER ==
[2024-12-24 11:06] LABS: BUN/Creat Ratio 14.73 Ratio (12.00-20.00); Blood Urea Nitrogen 16.2 mg/dL (9.0-27.0); Carbon Dioxide 27.3 mmol/L (21.6-31.8); Chloride 103 mmol/L (96-109); Chol/HDL Ratio 3.09 Ratio; Glucose 146 mg/dL (70-110); LDL Cholesterol,Calculated 92.1 mg/dL (0.0-131.0); Potassium 4.8 mmol/L (3.5-5.5); Sodium 138 mmol/L (135-145); VLDL Calculation 15.52 mg/dL (5.00-40.00)
[2024-12-24 11:07] LABS: ALT 19 U/L (10-49); AST 19 U/L (14-35); Alkaline Phosphatase 49 U/L (41-126); Calcium 8.8 mg/dL (8.7-10.3); Globulin 2.1 g/dL (1.6-3.3); Total Bilirubin 0.5 mg/dL (0.3-1.2); Total Protein 6.1 g/dL (6.2-8.2)
== END | disposition home or self-care (01) ==
LOC: LABWHC1 07:16
PROVIDERS: ATTEND Internal Medicine Endocrinology, Diabetes & Metabolism
DX: E11.65 Type 2 diabetes mellitus with hyperglycemia (principal)
CPT/HCPCS: 36415; 80053; 80061; 82043; 82570; 83036; 84443

== ENCOUNTER → 2025-01-04 | Outpatient (CLI) | payer OTHER ==
--- NOTE | 2025-01-04 20:04 | MR ---
EXAMINATION TYPE: MR liver wo/w con DATE OF EXAM: 01/04/2025 10:43 AM COMPARISON: CT scan abdomen from 11/05/2024. CLINICAL INDICATION: Male, 79 years old with history of R16.0 HEPATOMEGALY, Hepatomegaly. TECHNIQUE: Multiplanar multi-sequence imaging was performed without contrast. Post contrast imaging was performed. Post IV contrast subtraction images were also submitted for review. IV Contrast: 10 mL Gadobutrol FINDINGS: LOWER CHEST: Heart is mildly enlarged for size. ABDOMEN Liver: There is somewhat lobulated mass in the gallbladder fossa measuring 55 x 42 mm x 47 which is p rior T2 signal compared to surrounding liver parenchyma. The lesion does lose signal on fat suppressi on sequences. This mass immediately abuts the gallbladder series 701 image 44. Postcontrast imaging d emonstrates low T1 signal on fat suppression precontrast imaging. Postcontrast imaging demonstrates s ome arterial enhancement of this lesion which progresses most pronounced centrally with relative spar ing of the periphery. Additional simple appearing hepatic cyst in the dome of the liver anteriorly image postcontrast imagi ng 433 measuring 7 mm. Gallbladder and Bile ducts: No ductal dilation at this time from suspected No evidence for ductal dil ation, or biliary stricture or evidence of choledocholithiasis. The gallbladder is within normal limi ts. Pancreas: No ductal dilation. No evidence for solid mass. Spleen: Normal for size. Adrenal glands: Unremarkable. Kidneys: No evidence for obstructive uropathy. No suspicious renal masses. Renal cortical cysts bilat erally. Stomach and Bowel: No evidence for bowel wall thickening or evidence for obstruction. The appendix is visualized and within normal limits. Retroperitoneum/Peritoneum: No evidence of pneumoperitoneum or free fluid. Vasculature: No aortic aneurysm. Musculoskeletal: The osseous structures appear intact. Lymph Nodes: No gross evidence for lymphadenopathy. Abdominal wall: Small fat-containing umbilical hernia. IMPRESSION: 1. Arterial enhancing lesion which progresses on delayed imaging. Findings could represent angiomyol ipoma of the liver given its fat content with adenoma and additional consideration. Lastly less likel y malignancy such as cholangiocarcinoma persistent others. No ductal dilation at this time. No lympha denopathy. Short-term, at a minimum recommended. Comparisons with priors at outside institution unrem arkable may be of benefit for stability. 2. Simple appearing hepatic cyst. 3. Simple appearing renal cysts. [facility], , 01/04/2025 8:02 PM
== END | disposition home or self-care (01) ==
LOC: RADMRIMAIN 05:51
PROVIDERS: ATTEND Internal Medicine Gastroenterology
DX: R16.0 Hepatomegaly, not elsewhere classified (principal); K76.89 Other specified diseases of liver; N28.1 Cyst of kidney, acquired; K42.9 Umbilical hernia without obstruction or gangrene
CPT/HCPCS: 74183; A9585

== ENCOUNTER 2025-03-20 10:31 | Day surgery (SDC) | payer OTHER ==
[2025-03-19 10:22] VITALS: BMI 31.1
[2025-03-20 12:30] VITALS: RESP 16; TEMP 97.8
[2025-03-20 12:32] LABS: Glucose,Whole Blood 134 mg/dL (70-110)
[2025-03-20] MEDS: IV FLUID CONTINUATION 1,000 ML IV ONE (12:34)
[2025-03-20] MEDS: LACTATED RINGERS 1,000 ML IV SCH (12:34)
[2025-03-20] MEDS ORDERED: PROPOFOL 10 MG/ML 20 ML VIAL IV ONE (13:01)
--- NOTE | 2025-03-20 13:15 | P.PCN ---
Date of Procedure: 03/20/25 Procedure(s) Performed: BRIEF HISTORY: Patient is a 79-year-old, pleasant, white female scheduled for endoscopy as a part evaluation of longstanding history of GERD. Resume omeprazole 20 mg daily. He does have intermittent episodes of nausea vomiting and chronic intermittent hiccups.. PROCEDURE PERFORMED: Esophagogastroduodenoscopy with biopsy. PREOPERATIVE DIAGNOSIS: Longstanding history of GERD and intermittent hiccups. IV sedation per anesthesia. PROCEDURE: After informed consent was obtained, the patient was brought into the endoscopy unit. IV sedation was administered by Anesthesia under continuous monitoring. Initially the Olympus GIF-140 video endoscope was inserted into the mouth. Esophagus intubated without any difficulty. It was gradually advanced into the stomach and duodenum and carefully examined. The bulb and the second part of the duodenum appeared normal. The scope at this time was withdrawn to the stomach, adequately insufflated with air, and upon careful examination, mucosa of the antrum, and mild gastritis and biopsies were done from this area. Body, cardia and the fundus appeared normal. The scope was then withdrawn into the esophagus. Small hiatal hernia noted. The GE junction was located at 40 cm from the incisors. 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 The esophagus appeared normal. There were no erosions or ulcerations seen and the patient tolerated the procedure well. IMPRESSION: 1. Mild antral gastritis. 2. Small hiatal hernia 3. 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 RECOMMENDATIONS: The findings of this examination were discussed with the patient as well as his family. He was advised to continue with omeprazole 20 mg daily and follow antireflux measures. If the biopsy of Child's esophagus reveals no evidence of dysplasia, recommend repeat upper endoscopy in 3 years..
[2025-03-20 13:19] VITALS: PULSE 87
[2025-03-20 13:41] VITALS: BP 121/81
== END 2025-03-20 14:12 | disposition home or self-care (01) ==
LOC: ORWHC2ENDO 10:31
PROVIDERS: ATTEND Internal Medicine Gastroenterology
DX: K29.50 Unspecified chronic gastritis without bleeding (principal); K21.9 Gastro-esophageal reflux disease without esophagitis; K44.9 Diaphragmatic hernia without obstruction or gangrene; K31.A11 Gastric intestinal metaplasia without dysplasia, involving the antrum; K22.70 Barrett's esophagus without dysplasia; I48.91 Unspecified atrial fibrillation; J45.909 Unspecified asthma, uncomplicated; I10 Essential (primary) hypertension; E78.5 Hyperlipidemia, unspecified; G47.33 Obstructive sleep apnea (adult) (pediatric); Z86.711 Personal history of pulmonary embolism; Z88.8 Allergy status to other drugs, medicaments and biological substances; Z91.018 Allergy to other foods; Z79.02 Long term (current) use of antithrombotics/antiplatelets; Z79.899 Other long term (current) drug therapy
CPT/HCPCS: 88305; 43239; J2704